=== PATIENT | male | born 1940 | race Caucasian/White ===

== ENCOUNTER → 2018-08-13 18:26 | Outpatient (CLI) | payer MEDICARE | END | disposition home or self-care (01) | LOC: D.LABREF 18:26 | PROVIDERS: ATTEND Orthopaedic Surgery | DX: M19.011 Primary osteoarthritis, right shoulder (principal); Z11.8 Encounter for screening for other infectious and parasitic diseases ==

== ENCOUNTER 2018-08-14 13:14 | Inpatient (IN) | payer MEDICARE, OTHER ==
[~2018-08-14] VITALS: Ht 188 cm; Wt 77.3 kg
[2018-09-04] MEDS ORDERED: AZELASTINE137 MCG/0. (14:47)
[2018-09-04] MEDS ORDERED: ZETIA10 MG PO (14:48)
[2018-09-04] MEDS ORDERED: HYDROCHLOROTHIA25 MG PO (14:48)
[2018-09-04] MEDS ORDERED: HUMALOG MIX 75/23 ML (14:48)
[2018-09-04] MEDS ORDERED: LANTUS SOL100 UNIT/1 (14:49)
[2018-09-04] MEDS ORDERED: OMEPRAZOLE20 M1 PO (14:49)
[2018-09-04] MEDS ORDERED: MICARDIS40 MG PO (14:49)
[2018-09-05 09:30] LABS: BASOPHILS 0.1 % (0-2); EOSINOPHILS 0.4 % (0-7); HEMATOCRIT 39.7 % (42.0-54.0); HEMOGLOBIN 13.5 g/dL (13.5-17.5); IMMATURE GRANULOCYTES 0.4 % (0-5); LYMPHOCYTES 29.7 % (15-50); MCH 31.7 pg (26.0-34.0); MCV 93.2 fL (80.0-100.0); MEAN PLATELET VOLUME 8.7 fL (7.4-10.4); MONOCYTES 7.5 % (2-11); NEUTROPHILS 61.9 % (40-80); PLATELET COUNT 188 10x3/uL (130-400); RBC 4.26 10x6/uL (4.20-6.10); RDW 13.6 % (11.5-14.5); WBC 6.8 10x3/uL (4.8-10.8)
[2018-09-05 09:46] LABS: INR 0.96 (0.85-1.17); PROTIME 12.3 SECONDS (11.6-15.0)
[2018-09-05 09:48] LABS: CALC OSMOLALITY 282 mosm/kg (275-300); CALCIUM 9.1 mg/dL (8.5-10.1); CARBON DIOXIDE 31.4 mmol/L (21.0-32.0); CHLORIDE - SERUM 101 mmol/L (98-107); GLUCOSE 215 mg/dL (74-106); POTASSIUM - SERUM 3.5 mmol/L (3.5-5.1); SODIUM 139 mmol/L (136-145); UREA NITROGEN 9 mg/dL (7-18); eGFR NON AFRICAN AMERICAN 76 mL/min (90-120)
[2018-09-05 14:28] LABS: APPEARANCE CLEAR (CLEAR); BILIRUBIN NEGATIVE (NEGATIVE); COLOR YELLOW (YELLOW); GLUCOSE NEGATIVE (NEGATIVE); KETONE NEGATIVE (NEGATIVE); NITRITE NEGATIVE (NEGATIVE); PROTEIN NEGATIVE (NEGATIVE); UROBILINOGEN NORMAL (NORMAL)
[2018-09-08 07:11] VITALS: BP 146/82; BMI 23.8
[2018-09-08] MEDS ORDERED: HUMALOG 30100 UNITS/ SC (07:38)
--- NOTE | 2018-09-08 13:45 | NUR ---
AUGER SUPERVISOR CALLED FOR A ROOM. RECIEVED A ROOM 2226 BUT DIRTY
--- NOTE | 2018-09-08 14:08 | NUR ---
PT RESTING COMFORTABLY AT THIS TIME, NO ACUTE DISTRESS NOTED, RESPIRATIONS EVEN AND UNLABORED. PT DENIES PAIN AT THIS TIME, BRISK CAP REFILL TO FINGERS OF RUE.
--- NOTE | 2018-09-08 14:49 | NUR ---
REPORT GIVEN TO DESIREE ON MED SURGERY. ROOM NOT READY
[2018-09-08 15:38] VITALS: Ht 188 cm; Wt 77.3 kg
[2018-09-08 17:33] VITALS: BP 138/78
[2018-09-08 20:00] VITALS: BP 148/72
--- NOTE | 2018-09-08 23:33 | NUR ---
1944[place] [facility] [place] patient states never coming back to this hospital.states has been trying to get help for 28minutes.stood at bedside.to void.drsg. dry and intact right shoulder with sling.fingers and nailbeds pink/blanches well.wiggles fingers good radial pulse fsbs 154 refused insulin according to sliding scale.will continue to monitor for any chges neurovascular status and follow current plan of care
--- NOTE | 2018-09-09 06:00 | NUR ---
I have reviewed this patient and I concur with the Shift Assessment completed by the Licensed Practical Nurse today this shift.
[2018-09-09 06:33] VITALS: BP 144/67
[2018-09-09 06:48] LABS: HEMATOCRIT 32.9 % (42.0-54.0); HEMOGLOBIN 11.1 g/dL (13.5-17.5); MCHC 33.7 g/dL (31.0-37.0); MCV 91.9 fL (80.0-100.0); RBC 3.58 10x6/uL (4.20-6.10); RDW 13.8 % (11.5-14.5); WBC 7.5 10x3/uL (4.8-10.8)
[2018-09-09 08:14] VITALS: BP 140/65
[2018-09-09] MEDS ORDERED: HYDROCODON-ACE1 EA10 PO (09:04)
--- NOTE | 2018-09-09 10:02 | NUR ---
PT RESTING IN BED. PT AM MEDS ADMINISTERED. PT DENIES NEEDS. WCTM.
[2018-09-09 11:46] VITALS: BP 124/61
--- NOTE | 2018-09-09 12:12 | NUR ---
PT DISCHARGE INSTRUCTIONS REV'D PT STATES UNDERSTANDING. PT DISCHARGING HOME WIHT FAMILY. PT ESCORTED OUT VIA WHEELCHAIR BY HOSPITAL STAFF.
--- NOTE | 2018-09-09 15:00 | OP ---
PATIENT NAME: EDGARD PLEITEZ JR MEDICAL RECORD: [id number] :38 LOCATION:D.MS Parry2226 ADMISSION DATE:09/08/18 SURGEON: JASPAL MORGAN MD DATE OF OPERATION: 09/08/2018 PREOPERATIVE DIAGNOSIS: Degenerative arthritis of the right shoulder. POSTOPERATIVE DIAGNOSIS: Degenerative arthritis of the right shoulder. PROCEDURE: Right total shoulder arthroplasty. SURGEON: Jaspal Morgan MD INSTRUMENT MECHANIC: ODALIS Doss INTRAOPERATIVE COMPLICATIONS: None. SUMMARY OF PATHOLOGIC FINDINGS: The patient's glenohumeral arthrosis consistent with preoperative diagnosis. IMPLANTS USED: Arthrex Univers Welch stem size 12, Arthrex Univers VaultLock glenoid size medium, Arthrex Univers II humeral head size 56/24. OPERATIVE SUMMARY IN DETAIL: After obtaining the appropriate preoperative orthopedic surgery consent as well as anesthetic consultation, evaluation and clearance, the patient was brought to the operating room and placed on the operating table in supine position. After general laryngeal mask airway was administered, the patient was placed in beach chair position. All pressure points were padded. He was held firmly to the operating table using vacuum pack suction system. Right upper extremity and shoulder were then prepped and draped in routine sterile fashion. The arm was held in the Trimano arm holding device. At this point, the appropriate timeout was taken to include patient identification, current allergies as well as appropriate antibiotics given. All were in agreement. A deltopectoral incision was taken down past the cephalic vein. The deltoid was then retracted over the humeral head using the brown retractor. Clavipectoral fascia was incised. Conjoined tendon was retracted gently medially. Subscapularis was taken in a peel down fashion. Biceps tendon was identified and saved for later tenodesis with closure. The shoulder was then dislocated into the incision and the appropriate head cut was made using the head cutting guide for the apex system. Several sequential reaming were done for a size 12. The size 12 trial was put into place with a proximal humeral cut cover. Attention was then turned to the glenoid. The patient had a mild Walch C glenoid, labrectomy was then followed by placing the pin and reaming to change to mild inversion without getting into subchondral bone. Final preparations were taken in preparation for the Arthrex vault lock glenoid. Arthrex vault lock glenoid was then cemented into place and held in place while the cement was allowed to harden. All excess cement was removed. At this point, attention was returned to the proximal humerus. Size 12-mm body was then put into place and the humerus with excellent fit and fill. Inferior and superior locking screw were then secured and the humeral head was then put in the appropriate position for posterior coverage. This was tamped into place with Gonzales taper. The shoulder was reduced and taken through range of motion and found to be stable in all planes. Closure was then achieved by Ghassan Wylie, which included subscapularis reapproximation to the lesser tuberosity in transosseous fashion using #2 Ethibond. This was incorporated to tenodesis. OPERATIVE REPORT [id number] EDGARD PLEITEZ Having completed this, deltopectoral incision was closed with using #1 Vicryl followed by skin willi. Sterile dressings were applied. The patient was awakened and taken to recovery in stable condition. All final instrument, needle and sponge counts were correct. TRANSINT:[id number] Voice Confirmation ID: [id number] DOCUMENT ID: [id number] JASPAL MORGAN MD at 1500 CC: [id number] DICTATION DATE: 09/09/18 1040 DISH UP PERSON: 09/09/18 1242 DIS IN 09/09/18 [id number] [place] [address]
== END 2018-09-09 12:13 | disposition home or self-care (01) | DRG 483 ==
LOC: D.SDCHOLD 09-08 06:59 → D.MS 09-08 15:18
PROVIDERS: ADMIT Orthopaedic Surgery; ATTEND Orthopaedic Surgery
PROC: 0RRJ0JZ Replacement of Right Shoulder Joint with Synthetic Substitute, Open Approach (ICD-10-PCS; principal; 2018-09-08 08:45)
DX: M19.011 Primary osteoarthritis, right shoulder (principal)

== ENCOUNTER 2018-09-10 03:48 | Emergency (ER) | payer MEDICARE, OTHER ==
[~2018-09-10] VITALS: Ht 188 cm; Wt 83.2 kg
[~2018-09-10 03:48] MED LIST: AZELASTINE137 MCG/0.; HUMALOG 30100 UNITS/ SC; HUMALOG MIX 75/23 ML; HYDROCHLOROTHIA25 MG PO; HYDROCODON-ACE1 EA10 PO; LANTUS SOL100 UNIT/1; MICARDIS40 MG PO; OMEPRAZOLE20 M1 PO; ZETIA10 MG PO
[2018-09-10 03:56] VITALS: Ht 188 cm; Wt 83.2 kg
[2018-09-10 06:48] VITALS: BP 141/79
== END 2018-09-10 06:50 | disposition home or self-care (01) ==
LOC: D.ER 03:48
DX: S51.012A Laceration without foreign body of left elbow, initial encounter (principal); W18.30XA Fall on same level, unspecified, initial encounter; Y93.89 Activity, other specified; Y92.019 Unspecified place in single-family (private) house as the place of occurrence of the external cause; M19.042 Primary osteoarthritis, left hand

== ENCOUNTER 2018-09-13 04:59 | Emergency (ER) | payer MEDICARE, OTHER ==
[~2018-09-13] VITALS: Ht 188 cm; Wt 83.2 kg
[2018-09-13 05:01] VITALS: Ht 188 cm; Wt 83.2 kg
[2018-09-13] MEDS ORDERED: BACLOFEN10 MG PO (05:34)
[2018-09-13 05:45] LABS: ALBUMIN 2.7 g/dL (3.4-5.0); ANION GAP 9.5 mmol/L (8-16); BILIRUBIN - TOTAL 0.63 mg/dL (0.2-1.3); CALCIUM 9.1 mg/dL (8.5-10.1); CARBON DIOXIDE 30.4 mmol/L (21.0-32.0); CREATININE - SERUM 1.2 mg/dL (0.6-1.3); POTASSIUM - SERUM 3.9 mmol/L (3.5-5.1); PROTEIN - SERUM 6.6 g/dL (6.4-8.2)
[2018-09-13 05:46] LABS: BASOPHILS 0.2 % (0-2); EOSINOPHILS 0.7 % (0-7); HEMATOCRIT 35.1 % (42.0-54.0); HEMOGLOBIN 11.9 g/dL (13.5-17.5); IMMATURE GRANULOCYTES 1.2 % (0-5); LYMPHOCYTES 23.7 % (15-50); MCH 31.3 pg (26.0-34.0); MCHC 33.9 g/dL (31.0-37.0); MCV 92.4 fL (80.0-100.0); MEAN PLATELET VOLUME 9.2 fL (7.4-10.4); NEUTROPHILS 64.2 % (40-80); PLATELET COUNT 190 10x3/uL (130-400); RDW 13.8 % (11.5-14.5); WBC 8.3 10x3/uL (4.8-10.8)
[2018-09-13 06:00] VITALS: BP 138/39
== END 2018-09-13 06:00 | disposition home or self-care (01) ==
LOC: D.ER 04:59
PROVIDERS: Emergency Medicine
DX: R06.6 Hiccough (principal)

== ENCOUNTER 2018-09-15 10:42 | Inpatient (IN) | payer MEDICARE, OTHER ==
[~2018-09-15] VITALS: Ht 188 cm; Wt 83.0 kg
--- NOTE | ~2018-09-15 | HEMODYNAMI ---
PATIENT:EDGARD PLEITEZ JR MEDICAL RECORD: [id number] : 38 [facility] ADMISSION DATE: 09/15/18 Generatedon:09/22/201817:50 Patient name: EDGARD PLEITEZ Patient #: [id number] SSN: D OB: 1940 Date of study: 09/22/2018 Page: Of Hemodynamic Procedure Report Patient Data Patient Demographics Procedure consent was obtained First Name: EDGARD Gender: Male Last Name: PRICILLA Suffix: [facility] Initial: LEIGH : 1940 Patient #: [id number] Age: 78 year(s) Race: Unknown Additional ID: [id number] Contact details Address: [address] [place] [address] [address] State: [place] City: [facility] Zip code: [address] Past Medical History Allergies Allergen Reaction Date Comments Reported Other allergy 09/22/2018 ZOCOR AND EURTHRMYCIN Admission Admission Data Admission Date: 09/15/2018 Admission Time: 10:42 Room #: D.1209 Procedure Procedure Types Cath Procedure Peripheral Cath Diagnostic Procedure Miscellaneous Procedure Description Procedure Date Procedure Date: 09/22/2018 Procedure Start Time: 17:34 Procedure Staff Name Function Isma Grover MD Performing Physician Randell Burroughs RT Monitor Richa Upton RN Nurse Procedure Data Cath Procedure Fluoroscopy Diagnostic fluoroscopy Total fluoroscopy Time: 0.6 time: 0.6 min min Diagnostic fluoroscopy Total fluoroscopy dose: 18 dose: 18 mGy mGy Hemodynamics Rest Pre Cath Intra NCS Post Cath Procedure Log Time Note 17:27:29 Randell Burroughs RT (R) (CV) sent for patient. Start room use. 17:27:40 Time tracking: Regular hours (M-F 7:00 - 5:00) 17:27:46 Patient received from Other to IR Alert and oriented. Tansferred to table in Supine position. 17:27:47 Correct patient and procedure confirmed by team. 17:27:49 Signed procedure consent form obtained from patient. 17:27:50 ECG and BP/O2 sat monitors applied to patient. 17:27:51 Full Disclosure recording started 17:27:53 Pre-procedure instructions explained to patient. 17:27:53 Pre-op teaching completed and patient verbalized understanding. 17:28:23 Patient allergic to Other allergyZOCOR AND EURTHRMYCIN 17:28:29 Alarms reviewed by R. N. 17:28:30 Sharps counted by scrub and verified by R.N. 17:28:37 Right Shoulder was prepped with chlora-prep and draped in sterile fashion. 17:33:14 Physician arrived 17:33:14 --------ALL STOP TIME OUT------ 17:33:15 Final Timeout: patient, procedure, and site verified with staff and physician. All members of the team are in agreement. 17:33:22 Right SHOULDER site verified by team. 17:33:42 Sedation plan: IV Moderate Sedation Medication:Lidocaine 17:33:54 Procedure started. 17:34:02 Local anesthetic to Right Shoulder with Lidocaine 1% by Isma Grover MD.INITIAL ACCESS ONLY 17:34:05 SAFE-T PLUS MYELOGRAM TRAY opened to sterile field. 17:35:33 SPINAL NEEDLE 20GX3.5 IN ([id number]) opened to sterile field. 17:47:32 Procedure ended.(Physican Out) 17:48:10 Fluoroscopy time 00.60 minutes. 17:48:15 Fluoroscopy dose: 18 mGy 17:48:15 Flurop Dose total: 18 17:49:04 BANDAIDE APPLIED SITE STABLE 17:49:16 Report given to Other. 17:49:19 Patient transfered to Other with Bed. Device Usage Item Name Manufacture Quantity Catalog Hospital Part Current Minimal Lot# / Number Charge Number Stock Stock Serial# Code SAFE-T CareFusion 1 [id number] 5 PLUS MYELOGRAM TRAY SPINAL B. Aly 1 [id number] [id number] 1 NEEDLE 20GX3.5 IN ([id number]) Signature Audit Repton Stage Time Signature Unsigned Intra-Procedure 09/22/2018 Randell 5:50:09 PM Shuffield RT (R) (CV) Signatures Monitor : Randell Signature : Shuffield RT Date : Time : [address] [place] [address]
--- NOTE | ~2018-09-15 | CN ---
PATIENT NAME:EDGARD PLEITEZ JR MEDICAL RECORD: [id number] : 36 LOCATION:D.MS Parry2235 ADMIT DATE: 09/15/18 ACCOUNT: [id number] CONSULTING PHYSICIAN: NORRIS MENDOZA MD REFERRING PHYSICIAN: MACI NEWBERRY DO DATE OF CONSULTATION: 09/30/2018 DIAGNOSES: 1. Tachycardia. 2. Status post right shoulder arthroplasty with revision. 3. Anemia. HISTORY OF PRESENT ILLNESS: This is a gentleman who had right shoulder arthroplasty, as well had a revision from standpoint of the right shoulder arthroplasty, who has had tachycardia. His heart rate is up to the 120 range. It is sinus tachycardia. This is not new since the surgery. He has been running with heart rates in the 130s. His baseline even prior to surgery was in the 90s. He is in considerable pain. He is mildly anemic with hemoglobin 11.6. His EKG is with no acute ST-T abnormalities. He is having no chest pain. No chest discomfort or cardiac symptomatology. PHYSICAL EXAMINATION: GENERAL APPEARANCE: Well-nourished, well-developed, appears stated age. Level of distress, comfortable. PSYCHIATRIC: Mental status, alert, normal affect. Orientation, oriented to time, place and person. EYES: Lids and conjunctiva, noninjected. No discharge, no pallor. ENT: Lips, teeth, gums, normal dentition. Oropharynx, no cyanosis, no pallor. NECK: Carotid arteries, bilateral normal upstroke, no bruits, no thrills. JUGULAR VEINS: No jugular venous pressure or distention. CERVICAL LYMPH NODES: Nontender, nonenlarged. THYROID: Not enlarged. Nontender. No nodules. LUNGS: Respiratory effort, unlabored. CHEST: Normal curvature. No thoracic deformity. No chest wall tenderness. Percussion, resonant. Auscultation, clear. No wheezes, no rales, no rhonchi. CARDIOVASCULAR: Precordial exam, nondisplaced. No heaves or pericardial thrills. Rate and rhythm, regular. Heart sounds, normal S1, normal S2. No S3, no gallop, no rub. Systolic murmur, not heard. Diastolic murmur, not heard. EXTREMITIES: No cyanosis, no edema. Peripheral pulses, full and equal in all extremities, except as noted. No bruits appreciated. ABDOMEN: Soft, nondistended. Normal aorta. No bruit. Nontender. No masses. Liver, nontender, no hepatomegaly. Spleen, nontender, no splenomegaly. MUSCULOSKELETAL: No joint tenderness. No joint swelling. No erythema. NEUROLOGICAL: Normal gait, normal strength, normal tone. SKIN: Warm and dry. OVERALL IMPRESSION: Tachycardia, most likely secondary to pain and anemia. At this time, we will get an echocardiogram. No other cardiac workup or testing is necessary. TRANSINT:[id number] Voice Confirmation ID: [id number] DOCUMENT ID: [id number] CONSULT REPORT [id number] EDGARD PLEITEZ JR, JEFFREY MD CC: [id number] DICTATION DATE: 09/30/18 1215 PUBLIC WORKS MANAGER: 09/30/18 1223 ADM IN [address] [address] [place] [address]
--- NOTE | ~2018-09-15 | EC ---
PATIENT:EDGARD PLEITEZ JR DATE OF SERVICE: 09/15/18 SEX: M MEDICAL RECORD: [id number] DATE OF : 36 LOCATION:D.MS [facility] AGE OF PATIENT: 78 ADMISSION DATE: 09/15/18 REFERRING PHYSICIAN: INTERPRETING PHYSICIAN: NORRIS ROBERTS MD ECHOCARDIOGRAM REPORT ECHO CHARGES 5 ECHO LIMITED Date: 09/30/18 CLINICAL DIAGNOSIS: TACHYCARDIA ECHOCARDIOGRAPHIC MEASUREMENTS (adult normal given) AC root (d.<3.7cm) 4.3 cm LV Septum d (<1.2 cm> 1.4 cm Valve Excursion 1.8 cm LV Septum (systole) 1.7 cm Left Atria (s.<4.0cm> 3.4 cm LVPW d(<1.2cm) 1.5 cm RV (d.<2.3cm) 3.9 cm LVPW (sytole) 1.6 cm LV diastole(<5.6CM) 4.7 cm MV E-F(>70mm/sec) cm LV systole 3.5 cm LVOT Diameter 2.5 cm MV exc.(>10mm) 1.3 cm Est.ejection fraction (50-75%) % DOPPLER: LVIT cm/sec A 110.0cm/sec E 75.0 cm/sec LA cm/sec RVSP 20 mmHg LVOT 98 cm/sec AOP1/2T m/s Asc. Ao 138 cm/sec RVOT 84 cm/sec RA cm/sec PA 125 cm/sec AV Gradient Peak 7.60 mmHg AV Mean 4.50 mmHg AV Area 3.0 cm MV Gradient Peak 4.97 mmHg MV Mean 2.11 mmHg MV Area cm COMMENTS: Brass Buffer: Andreia SCHRADER Airframe Design Engineer: 1 Dr. Roberts TAPE# PACS Pericardial Effusion N DATE OF SERVICE: 09/30/2018 FINDINGS: 1. Left ventricular chamber size is within normal limits. Left ventricular systolic function is normal. Overall ejection fraction is estimated at 55% to 60%. 2. Left atrium, right atrium, and right ventricular chamber sizes are within normal limit. 3. Valvular structures have normal structure and motion. 4. Doppler interrogation reveals mild mitral regurgitation. No other valvular ECHOCARDIOGRAM REPORT [id number] EDGARD PLEITEZ insufficiency or stenosis. 5. No evidence of pericardial effusion or left ventricular thrombus. TRANSINT:[id number] Voice Confirmation ID: [id number] DOCUMENT ID: [id number] NORRIS ROBERTS MD CC: [id number] DICTATION DATE: 09/30/18 1604 CABINET WORKER: 09/30/18 1628 ADM IN [address] [address] [place] [address]
[~2018-09-15 10:42] MED LIST changes: +BACLOFEN10 MG PO
--- NOTE | 2018-09-15 10:54 | NUR ---
RECEIVED VIA WHEELCHAIR TO ROOM. MAX 2 PERSON ASSIST TO BED. BOTTOM IS SLIGHTLY RED, BLANCHABLE. RIGHT SHOULDER 7 DAY DRESSING SEEN, NO DATE, FROM RECENT SHOULDER SURGERY PER DR MORGAN PATIENT STATES. RIGHT FLANK SEEN WITH LARGE BRUISE, LEFT POSTERIOR SHOULD AND LEFT FLANK WITH OLD BRUISING SEEN. LEFT KNEE SEEN WITH SCAB, LEFT TOP OF FOOT NEAR 3RD TOE SEEN WITH LARGE WATER FILLED BLISTER. 3+ EDEMA SEEN TO BILATERAL FEET. WILL ADMIT.
[2018-09-15 11:33] VITALS: BP 136/80; BMI 23.5
--- NOTE | 2018-09-15 12:20 | NUR ---
CALLED AND SPOKE TO DR NEWBERRY OFFICE FOR THEM TO FAX ME A COMPLETE HOME MED LIST PATIENT IS UNSURE OF WHAT HE TAKES.
--- NOTE | 2018-09-15 12:57 | NUR ---
URINE SENT TO LAB ORDERED. 22 G TO LEFT AC X 2 STICKS PER THIS NURSE. ALTHEA MAT ALARM IS ON AND SET.
--- NOTE | 2018-09-15 13:10 | NUR ---
STILL NOT MED LIST FROM DR NEWBERRY OFFICE. SPENT 09 MIN. ON HOLD WITH NO ANSWER.
[2018-09-15 13:22] LABS: APPEARANCE CLEAR (CLEAR); COLOR STRAW (YELLOW); NITRITE NEGATIVE (NEGATIVE); SPECIFIC GRAVITY 1.005 (1.005-1.020)
[2018-09-15 13:23] LABS: BILIRUBIN NEGATIVE (NEGATIVE); GLUCOSE 50 mg/dL (NEGATIVE); KETONE NEGATIVE (NEGATIVE); PROTEIN NEGATIVE (NEGATIVE); UROBILINOGEN NORMAL (NORMAL)
[2018-09-15 13:51] LABS: BASOPHILS 0.1 % (0-2); EOSINOPHILS 0.2 % (0-7); HEMATOCRIT 35.6 % (42.0-54.0); HEMOGLOBIN 12.2 g/dL (13.5-17.5); IMMATURE GRANULOCYTES 1.9 % (0-5); LYMPHOCYTES 17.3 % (15-50); MCH 31.5 pg (26.0-34.0); MCHC 34.3 g/dL (31.0-37.0); MEAN PLATELET VOLUME 8.9 fL (7.4-10.4); MONOCYTES 9.8 % (2-11); NEUTROPHILS 70.7 % (40-80); PLATELET COUNT 192 10x3/uL (130-400); RBC 3.87 10x6/uL (4.20-6.10); RDW 13.7 % (11.5-14.5); WBC 9.4 10x3/uL (4.8-10.8)
[2018-09-15 14:06] LABS: ALBUMIN 2.8 g/dL (3.4-5.0); ALKALINE PHOSPHATASE 69 U/L (46-116); ALT (SGPT) 52 U/L (10-68); BILIRUBIN - TOTAL 0.83 mg/dL (0.2-1.3); CALC OSMOLALITY 278 mosm/kg (275-300); CALCIUM 9.4 mg/dL (8.5-10.1); CARBON DIOXIDE 32.9 mmol/L (21.0-32.0); CHLORIDE - SERUM 98 mmol/L (98-107); POTASSIUM - SERUM 3.4 mmol/L (3.5-5.1); PROTEIN - SERUM 6.8 g/dL (6.4-8.2); SODIUM 137 mmol/L (136-145); UREA NITROGEN 16 mg/dL (7-18); eGFR NON AFRICAN AMERICAN 76 mL/min (90-120)
[2018-09-15 14:08] LABS: GLUCOSE 168 mg/dL (74-106)
--- NOTE | 2018-09-15 14:34 | NUR ---
DRESSING TO RIGHT SHOULDER REMOVED. INCISION IS 10.5 CM IN LENGHT WITH 18 INTACT NATALIE. COVERED WITH MEPILEX BORDER AG AND DATED. LEFT ELBOW AND LEFT WRIST BANDAIDS REMOVED. LEFT ELBOW WITH SKIN TEAR, MEAUSRES 3 CM AND LEFT WRIST WITH SKIN TEAR THAT ALSO MEASURES 3 CM. BOTH OF THESE ARE COVERED WITH WHITE BORDERED GUAZE AND DATED. TOLERATED WELL.
[2018-09-15 15:03] VITALS: BP 158/82
--- NOTE | 2018-09-15 16:24 | NUR ---
I HAVE SPENT 10:53 MIN ON HOLD TRYING TO GET TO TALK TO ENEDINA R/T NEEDING SLIDING SCALE DOSE FOR PATIENT. I HAVE CALLED AGAIN AND AM ON HOLD AGAIN NOW FOR 9:11 MIN. I SPOKE WITH CINDY DE LA O AND RECEIVED NEW ORDERS.
--- NOTE | 2018-09-15 16:33 | NUR ---
SPOKE WITH GALI IN PHARMACY FOR INSULIN TO BE BROUGHT UP.
--- NOTE | 2018-09-15 16:48 | NUR ---
CALL CATARINO IN PHARMACY FOR HUMULIN.
--- NOTE | 2018-09-15 17:30 | NUR ---
I CALLED GALI IN PHARMACY TO SEE WHEN HE MIGHT BRING THE INSULIN. HE REPLIES, "I HATE TO GIVE YOU A TIME, IT IS JUST ME".
--- NOTE | 2018-09-15 17:39 | NUR ---
DENIES NEEDS AT THIS TIME. PATIENT IS TALKING ON HIS CELL PHONE TO AND TELLS HER THAT "I SAW A BUNCH OF FLIES HERE IN THE ROOM". I APALOGIZED AND TOLD HIM THAT I SAW NO FLIES.
--- NOTE | 2018-09-15 18:36 | NUR ---
COMPLETE LINEN AND GOWN CHANGE R/T "SPILLING" HIS URNIAL.
[2018-09-15 19:56] VITALS: BP 155/72
[2018-09-15 21:33] LABS: INR 1.09 (0.85-1.17); PROTIME 13.6 SECONDS (11.6-15.0)
[2018-09-15 21:42] LABS: D-DIMER-QUANTITATIVE 16.72 ug/mLFEU (0.20-0.54)
[2018-09-15 23:37] VITALS: BP 183/72
--- NOTE | 2018-09-15 23:38 | NUR ---
KEN, BLOCKER POLISHING AT BEDSIDE ATTEMPTING 20G IV
--- NOTE | 2018-09-16 01:04 | NUR ---
PATIENT TAKEN FOR CTA
--- NOTE | 2018-09-16 01:22 | NUR ---
PATIENT RETURNED TO THE FLOOR
[2018-09-16 01:25] LABS: APPEARANCE CLEAR (CLEAR); BILIRUBIN NEGATIVE (NEGATIVE); COLOR YELLOW (YELLOW); GLUCOSE 50 mg/dL (NEGATIVE); KETONE SMALL mg/dL (NEGATIVE); NITRITE NEGATIVE (NEGATIVE); PROTEIN NEGATIVE (NEGATIVE); UROBILINOGEN NORMAL (NORMAL)
--- NOTE | 2018-09-16 02:37 | NUR ---
CALLED TREE THINNER IN REGARDS TO PULLING LOVENOX
[2018-09-16 03:59] VITALS: BP 135/76
[2018-09-16 07:48] LABS: ALBUMIN 2.5 g/dL (3.4-5.0); ALKALINE PHOSPHATASE 63 U/L (46-116); ALT (SGPT) 46 U/L (10-68); BILIRUBIN - TOTAL 0.67 mg/dL (0.2-1.3); CALC OSMOLALITY 282 mosm/kg (275-300); CALCIUM 8.9 mg/dL (8.5-10.1); CARBON DIOXIDE 30.3 mmol/L (21.0-32.0); CHLORIDE - SERUM 104 mmol/L (98-107); CREATININE - SERUM 0.9 mg/dL (0.6-1.3); GLUCOSE 89 mg/dL (74-106); POTASSIUM - SERUM 3.6 mmol/L (3.5-5.1); PRO BNP 200 pg/mL (0-450); PROTEIN - SERUM 5.7 g/dL (6.4-8.2); SODIUM 142 mmol/L (136-145); UREA NITROGEN 14 mg/dL (7-18); eGFR NON AFRICAN AMERICAN 86 mL/min (90-120)
[2018-09-16 07:49] LABS: BASOPHILS 0.1 % (0-2); EOSINOPHILS 0.5 % (0-7); HEMATOCRIT 36.3 % (42.0-54.0); HEMOGLOBIN 12.3 g/dL (13.5-17.5); IMMATURE GRANULOCYTES 1.5 % (0-5); LYMPHOCYTES 26.3 % (15-50); MCH 31.1 pg (26.0-34.0); MCHC 33.9 g/dL (31.0-37.0); MCV 91.9 fL (80.0-100.0); MEAN PLATELET VOLUME 9.1 fL (7.4-10.4); MONOCYTES 10.8 % (2-11); NEUTROPHILS 60.8 % (40-80); PLATELET COUNT 186 10x3/uL (130-400); RBC 3.95 10x6/uL (4.20-6.10); RDW 13.8 % (11.5-14.5)
--- NOTE | 2018-09-16 08:32 | MORECARE ---
CASE MANAGEMENT DISCHARGE SUMMARY PATIENT: EDGARD PLEITEZ JR UNIT: [id number] ADM DATE: 09/15/18 AGE: 78 : 38 SEX: M ROOM/BED: D.1209 AUTHOR: JANA MURILLO PHYSICIAN: REFERRING PHYSICIAN: MACI NEWBERRY DO DATE OF SERVICE: 09/16/18 Discharge Plan Patient Name: EDGARD PLEITEZ [facility] 1940 Planned Disposition: Home Anticipated Discharge Date: Discharge Date: Expected LOS: Initial Reviewer: [email or web address] Initial Review Date: 09/16/2018 Generated: 09/16/18 9:32 am Patient Name: EDGARD PLEITEZ Page [id number] at 0832 All edits/amendments must be made on the electronic document DICTATION DATE: 09/16/18 0832 BANK CLERK: MAGUI 09/16/18 0832 RPT#: [id number] DC DATE: STATUS: ADM IN [facility] [address] [place] [address] END OF REPORT
--- NOTE | 2018-09-16 10:13 | NUR ---
PT SITING UP IN BED. LIGHTS ON EYES OPEN. RESPRIATIONS EVEN AND UNLARBORED ON RA. R ARM RED, SWOLLEN ULTRASOUND SCHEDULED FOR TODAY, RULE OUT DVT. COMPLAINTS OF PAIN TO R ARM ONLY WHEN MOVED. DRESSING INTACT TO R SHOULDER, AND L FOREARM. NO OTHER COMPLAINTS VOICED. URINAL AT BEDSIDE. FALL PRECAUTIONS IN PLACE. BED IN LOWEST POSTION, CALL LIGHT AND BEDSIDE TABLE IN REACH. SIDERAILS UP X 2. ROOM FREE OF CLUTTER. WILL CONTINUE TO MONITOR
[2018-09-16 13:40] VITALS: BP 132/80
[2018-09-16 13:57] VITALS: BMI 23.5
--- NOTE | 2018-09-16 14:50 | NUR ---
I have reviewed this patient and I concur with the Shift Assessment completed by the Licensed Practical Nurse today this shift.
[2018-09-16 19:33] VITALS: BP 131/79
--- NOTE | 2018-09-16 19:54 | NUR ---
EVENING ROUNDS MADE. PT SITTING UP IN BED RESTING. DENIES PAIN AT THIS TIME. R ARM RED AND SWOLLEN. VITALS STABLE. DENIES FURTHER NEEDS AT THIS TIME. BED LOWERED AND LOCKED. CL IN REACH. WILL CTM.
--- NOTE | 2018-09-16 20:51 | NUR ---
VITALS STABLE. PT TOOK MEDS WITHOUT DIFFICULTY. DENIES PAIN AT THIS TIME. BED LOWERED AND LOCKED. CL IN REACH. FALL PRECAUTIONS IN PLACE. WILL CTM.
--- NOTE | 2018-09-17 01:46 | NUR ---
I have reviewed this patient and I concur with the Shift Assessment completed by the Licensed Practical Nurse today this shift.
[2018-09-17 04:43] VITALS: BP 126/77
--- NOTE | 2018-09-17 07:10 | NUR ---
REPORT FROM NIGHTSHIFT AND CARE ASSUMMED. HE IS ALERT ABLE TO VOICE NEEDS. RESP EVEN WITHOUT LABOR. RIGHT ARM FROM MIDWAY ON FORARM ALL THE WAY UP TO RIGHT BELOW THE SHOULDER IS SWOLLEN WITH PATCHES OF WARM RED AREAS. URINAL WITH YELLOW CLEAR URINE PRESENT AND EMPTIED. IV SITE IS CLEAR. SAFETY PRECAUTIONS IN PLACE AND CAREPLAN REVIEW DONE.
[2018-09-17 07:17] LABS: BASOPHILS 0.1 % (0-2); EOSINOPHILS 0.4 % (0-7); HEMATOCRIT 33.5 % (42.0-54.0); HEMOGLOBIN 11.3 g/dL (13.5-17.5); IMMATURE GRANULOCYTES 1.9 % (0-5); LYMPHOCYTES 28.9 % (15-50); MCH 31.4 pg (26.0-34.0); MCHC 33.7 g/dL (31.0-37.0); MCV 93.1 fL (80.0-100.0); MEAN PLATELET VOLUME 8.9 fL (7.4-10.4); MONOCYTES 7.6 % (2-11); NEUTROPHILS 61.1 % (40-80); PLATELET COUNT 205 10x3/uL (130-400); WBC 7.2 10x3/uL (4.8-10.8)
[2018-09-17 07:43] LABS: CALC OSMOLALITY 277 mosm/kg (275-300); CARBON DIOXIDE 32.2 mmol/L (21.0-32.0); CHLORIDE - SERUM 104 mmol/L (98-107); CREATININE - SERUM 0.9 mg/dL (0.6-1.3); GLUCOSE 98 mg/dL (74-106); PHOSPHOROUS 3.5 mg/dL (2.5-4.9); POTASSIUM - SERUM 3.4 mmol/L (3.5-5.1); SODIUM 139 mmol/L (136-145); UREA NITROGEN 13 mg/dL (7-18); eGFR NON AFRICAN AMERICAN 86 mL/min (90-120)
[2018-09-17 08:09] VITALS: BP 143/80
--- NOTE | 2018-09-17 09:20 | NUR ---
TOOK PO MEDS ONE AT A TIME BUT IS ABLE TO SWALLOW GOOD. HE REPEATS SELF AT TIMES AND IS FORGETFUL BUT NO CHANGE SINCE THIS AM. CL IN REACH CONTINUE CURRENT POC AND MONITOR. RESP EVEN WITHOUT LABOR
--- NOTE | 2018-09-17 10:32 | NUR ---
On left dorsal foot at #2 and #3 toes is an intact blister. Recommend applying skin protectant (cavilon prep) over area (gently) for additional protection which will allow the blister to dry up on its own.
--- NOTE | 2018-09-17 12:29 | NUR ---
TOP OF LEFT FOOT BLISTER RIGHT BELOW 2ND AND 3RD TOE INTACT WITH CLEAR LIQUID UNDERNEATH. APPLIED CAVILON TO BLISTER PER WOUND CARE ORDERS. EVERTON WELL AND BLISTER STAYED INTACT. PEDAL PULSE IS PALPABLE.
[2018-09-17 12:44] VITALS: BP 145/78
--- NOTE | 2018-09-17 14:30 | NUR ---
HE SPILLED HIS URINAL IN THE BED. LINEN CHANGE DONE AT THIS TIME.
[2018-09-17 15:31] VITALS: BP 129/85
--- NOTE | 2018-09-17 16:11 | NUR ---
IS HERE FOR VISIT. CL IN REACH. NO CHANGES NOTED.
--- NOTE | 2018-09-17 16:30 | NUR ---
DR NOLASCO CAME BY AND PATIENT TOLD HIM HE HAD NOT SEEN DR MORGAN. HE TOLD ME TO GET IN CONTACT WITH HIM TO LET HIM KNOW HIS PATIENT IS ADMITTED HERE, CONSULT HIM. I CALLED DR MORGAN OFFICE AND HE IS [place] THE [place] BUT GAVE ME DR WATTS PAGER NUMBER WHO IS ASSISTANT CASE MANAGER.
--- NOTE | 2018-09-17 16:45 | NUR ---
DR WATTS RETURNED PHONE CALL AND IS AWARE OF PATIENT AND CONSULT IS IN
--- NOTE | 2018-09-17 18:00 | NUR ---
ALERT DENIES ANY NEEDS AT THIS TIME. URINAL EMPTIED.
--- NOTE | 2018-09-17 19:11 | NUR ---
RECIEVED UP IN BED WITH EYES OPEN AND TV ON. ALERT AND ORIENTED X4. VERY TALKATIVE. DSG TO RIGHT SHOULDER AND LEFT ELBOW. SCABS TO LEFT ELBOW AREA X2. BRUISING TO RIGHT ARM AND SHOULDER. IV TO LEFT WRIST WITH NS AT 50CC/HR. INCONTINENT AT TIMES AND USES A URINAL AT TIMES. BLISTER TO TOP OF LEFT FOOT. DENIES ANY NEEDS AT THIS TIME.
--- NOTE | 2018-09-17 19:30 | MORECARE ---
CASE MANAGEMENT DISCHARGE SUMMARY PATIENT: EDGARD PLEITEZ JR UNIT: [id number] ADM DATE: 09/15/18 AGE: 78 : 38 SEX: M ROOM/BED: D.1209 AUTHOR: JANA MURILLO PHYSICIAN: REFERRING PHYSICIAN: MACI NEWBERRY DO DATE OF SERVICE: 09/17/18 Discharge Plan Patient Name: EDGARD PLEITEZ [facility] [facility] 1940 Planned Disposition: Home Anticipated Discharge Date: Discharge Date: Expected LOS: Initial Reviewer: [email or web address] Initial Review Date: 09/16/2018 Generated: 09/17/18 8:29 pm Comments DCP- Discharge Planning Updated by [id number]: Dania Edwards on 09/17/18 6:[address] CM TO VISIT FOR DISCHARGE PLANNING ASSESSMENT. PATIENT LIVES AT [facility]. Last DP export: 09/16/18 7:32 a Patient Name: EDGARD PLEITEZ Page [id number] at 1930 All edits/amendments must be made on the electronic document DICTATION DATE: 09/17/181928 CHRISTIAN EDUCATION DIRECTOR: MAGUI 09/17/181928 RPT#: [id number] DC DATE: STATUS: ADM IN [facility] [address] [place] [address] END OF REPORT
[2018-09-17 20:00] VITALS: BP 140/75
[2018-09-18 00:23] VITALS: BP 144/86
[2018-09-18 04:00] VITALS: BP 144/84
[2018-09-18 05:54] LABS: BASOPHILS 0.2 % (0-2); EOSINOPHILS 0.3 % (0-7); HEMOGLOBIN 12.5 g/dL (13.5-17.5); LYMPHOCYTES 31.2 % (15-50); MCH 31.5 pg (26.0-34.0); MCHC 33.8 g/dL (31.0-37.0); MCV 93.2 fL (80.0-100.0); MEAN PLATELET VOLUME 9.2 fL (7.4-10.4); MONOCYTES 8.4 % (2-11); NEUTROPHILS 57.9 % (40-80); PLATELET COUNT 231 10x3/uL (130-400); RBC 3.97 10x6/uL (4.20-6.10); WBC 8.7 10x3/uL (4.8-10.8)
[2018-09-18 06:18] LABS: INR 1.33 (0.85-1.17); PROTIME 15.9 SECONDS (11.6-15.0)
[2018-09-18 06:24] LABS: CALC OSMOLALITY 280 mosm/kg (275-300); CALCIUM 9.1 mg/dL (8.5-10.1); CARBON DIOXIDE 29.4 mmol/L (21.0-32.0); CHLORIDE - SERUM 104 mmol/L (98-107); CREATININE - SERUM 0.9 mg/dL (0.6-1.3); GLUCOSE 114 mg/dL (74-106); PHOSPHOROUS 3.1 mg/dL (2.5-4.9); SODIUM 140 mmol/L (136-145); UREA NITROGEN 15 mg/dL (7-18); eGFR NON AFRICAN AMERICAN 86 mL/min (90-120)
--- NOTE | 2018-09-18 07:05 | NUR ---
RECEIVED REPORT FROM NIGHTSNEFT AND CARE ASSUMMED. HE IS ALERT WITH CONFUSION AT TIMES. HE WILL REPEAT THE SAME STORIES OR FORGET THINGS AT TIMES. DENIES ANY CURRENT NEEDS. RESP EVEN WITHOUT LABOR. CL IN REACH. SAFETY PRECAUTIONS IN PLACE AND CAREPLAN REVIEW DONE.
[2018-09-18 07:27] VITALS: BP 147/87
--- NOTE | 2018-09-18 09:25 | NUR ---
ALERT WITH CONFUSION AT TIMES. RESP EVEN WITHOUT LABOR. USED INCENTIVE SPIROMETER. HE HAS NON-PRODUCTIVE COUGH. NO C/O PAIN OR DISCOMFORT. RIGHT ARM REMAINS SWOLLEN BUT WITH LESS EDEMA TODAY. SWOLLEN FROM MIDDLE OF UPPER ARM DOWN TO MIDDLE OF FOREARM.
--- NOTE | 2018-09-18 10:00 | NUR ---
AM CARE GIVEN AT THIS TIME WITH LINEN CHANGE. TOLERATED WELL. CONTINUE CURRENT POC AND MONITOR.
[2018-09-18 11:10] VITALS: BP 124/91
--- NOTE | 2018-09-18 11:26 | MORECARE ---
CASE MANAGEMENT DISCHARGE SUMMARY PATIENT: EDGARD PLEITEZ JR UNIT: [id number] ADM DATE: 09/15/18 AGE: 78 : 38 SEX: M ROOM/BED: D.1209 AUTHOR: JANA MURILLO PHYSICIAN: REFERRING PHYSICIAN: MACI NEWBERRY DO DATE OF SERVICE: 09/18/18 Discharge Plan Patient Name: EDGARD PLEITEZ [facility] [facility] 1940 Planned Disposition: Home Anticipated Discharge Date: Discharge Date: Expected LOS: Initial Reviewer: [email or web address] Initial Review Date: 09/16/2018 Generated: 09/18/18 12:25 pm Comments DCP- Discharge Planning Updated by [email or web address]: Dania Edwards on 09/18/18 10:[address] LATE ENTRY 0930 CM ATTEMPTED TO VISIT THE PATIENT THIS AM. PRIMARY GOING TO THE BEDSIDE TO GIVE MEDICATIONS AND BATH. 1045 CM TO VISIT. PATIENT WAS AWAKE DURING THE NIGHT CONTACTING HIS . SHE VISITED EARLY THIS AM. STATES SHE WILL RETURN TOMORROW. NORMALLY SHE WOULD STAY THRU LUNCH. PATIENT REQUIRED ASSIST OF TWO FOR BATHING. HE IS CONFUSED TO TIME. FREQUENTLY REPEATS HIMSELF. RECEIVED FIRST DOSE OF ELIQUIS TODAY. ORTHO TO SEE TODAY. DR MORGAN UNAVAILABLE. DR CARDENAS TO FOLLOW. PULMONARY FOLLOWING. WILL FOLLOWUP REGARDING OT AND PT. PATIENT IS PRESENTLY ON BEDREST. WILL CONTACT HIS THIS AFTERNOON. PREVIOUS GROUND CREWMAN INDICATED REHAB EVAL PENDING. NO PT OR OT NOTES YET THERAPIES ARE ON HOLD. CM FOLLOWING. PATIENT WITH HX OF FALLS AT HOME POST PROCEDURE DCP- Discharge Planning Updated by [id number]: Dania Edwards on 09/17/18 6:[address] CM TO VISIT FOR DISCHARGE PLANNING ASSESSMENT. PATIENT LIVES AT [facility]. Last DP export: 09/17/18 6:29 p Patient Name: EDGARD PLEITEZ Page [id number] at 1126 All edits/amendments must be made on the electronic document DICTATION DATE: 09/18/18 1125 ELECTRONIC FIELD SERVICE ENGINEER: MAGUI 09/18/18 1125 RPT#: [id number] DC DATE: STATUS: ADM IN [facility] [address] [place] [address] END OF REPORT
--- NOTE | 2018-09-18 12:15 | NUR ---
LUNCH SET UP FOR CONSUMPTION. HE IS ABLE TO FEED SELF. ALERT DENIES ANY CURRENT NEEDS. CL IN REACH
[2018-09-18 13:13] LABS: ACLA - IGG AB <9 GPL U/mL (0-14); ACLA - IGM AB <9 MPL U/mL (0-12)
--- NOTE | 2018-09-18 13:46 | NUR ---
IN BED WITH EYES CLOSED AT THIS TIME. RESP EVEN WITHOUT LABOR
--- NOTE | 2018-09-18 14:30 | NUR ---
HE WAS PUT ON BEDPAN AND HAD LARGE SOFT BM.
--- NOTE | 2018-09-18 15:00 | NUR ---
Nutrition Follow Up: Case Management in with pt at the time of RD visit. Interview deferred at this time. Chart reviewed. Diet: ADA with Chopped Meat; Glucerna TID PO Intake: 25% meal avg No BM since admit Meds and labs reviewed Rec continue current diet, supplement regimen. RD following.
[2018-09-18 15:23] VITALS: BP 119/74
--- NOTE | 2018-09-18 15:29 | NUR ---
DR NOLASCO CAME BY TO SEE PATIENT. HE SAID IT WOULD BE OK TO START BACK ON THERAPY TO MAKE HIM STRONGER DUE TO HE HAS NOT BEEN OUT OF BED SINCE ADMIT. DR NOLASCO STATED IT WOULD BE FINE TO GET HIM OUT OF BED AND GET THERAPY STARTED. I SPOKE WITH CLAUDIO CASTELLON WHO STATED IT WAS FINE TO CONSULT THERAPY.
--- NOTE | 2018-09-18 15:35 | MORECARE ---
CASE MANAGEMENT DISCHARGE SUMMARY PATIENT: EDGARD PLEITEZ JR UNIT: [id number] ADM DATE: 09/15/18 AGE: 78 : 38 SEX: M ROOM/BED: D.1209 AUTHOR: LIDIA,DOC PHYSICIAN: REFERRING PHYSICIAN: MACI NEWBERRY DO DATE OF SERVICE: 09/18/18 Discharge Plan Patient Name: EDGARD PLEITEZ Facility: [facility]:[place] : 1940 Planned Disposition: Home Anticipated Discharge Date: Discharge Date: Expected LOS: Initial Reviewer: [id number] Initial Review Date: 09/16/2018 Generated: 09/18/18 4:34 pm Comments DCP- Discharge Planning Updated by [id number]: Dania Edwards on 09/18/18 2:[address] LATE ENTRY 1417 TC TO THE PATIENT'S . NO ANSWER AND VOICE MAIL WAS FULL. 1430 CM VISITED WITH THE PATIENT. HE IS ALERT. LESS CONFUSED THAN EARLIER. PATIENT KNOWS HE IS HAVING DIFFICULTY WITH HIS MEMORY. DOES NOT UNDERSTAND WHY. HE REMEMBERS ONE HOSPITALIZATION. REMEMBERS SOMEWHAT ABOUT SURGERY. HE STATED HE WAS TO HAVE OUTPATIENT PHYSICAL THERAPY AT [facility]. HE DID NOT HAVE ANY HOME HEALTH SERVICES. HIS PLAN IS HOME W/ OUTPATIENT THERAPY. THE NURSE STATES HE WAS MAX ASSIST OF TWO TO GET FROM WHEELCHAIR TO BED ON HIS ARRIVAL. HE IS ASSIST OF TWO TO GET ONTO THE BEDPAN. HE IS MOVING ABOUT BETTER IN THE BED. SKILLED VS ACUTE REHAB WILL LIKELY BE MORE APPROPRIATE. DR SHETTY STATES FROM HIS PERSPECTIVE HE CAN START THERAPY. NURSE TO CALL FAMILY PRACTICE FOR ORDER. PATIENT HAS HAD A BOWEL MOVEMENT TODAY. DCP- Discharge Planning Updated by [id number]: Dania Edwards on 09/18/18 10:[address] LATE ENTRY 0930 CM ATTEMPTED TO VISIT THE PATIENT THIS AM. PRIMARY GOING TO THE BEDSIDE TO GIVE MEDICATIONS AND BATH. 1045 CM TO VISIT. PATIENT WAS AWAKE DURING THE NIGHT CONTACTING HIS . SHE VISITED EARLY THIS AM. STATES SHE WILL RETURN TOMORROW. NORMALLY SHE WOULD STAY THRU LUNCH. PATIENT REQUIRED ASSIST OF TWO FOR BATHING. HE IS CONFUSED TO TIME. FREQUENTLY REPEATS HIMSELF. RECEIVED FIRST DOSE OF ELIQUIS TODAY. ORTHO TO SEE TODAY. DR MORGAN UNAVAILABLE. DR CARDENAS TO FOLLOW. PULMONARY FOLLOWING. WILL FOLLOWUP REGARDING OT AND PT. PATIENT IS PRESENTLY ON BEDREST. WILL CONTACT HIS THIS AFTERNOON. PREVIOUS CPR AMBULANCE DRIVER INDICATED REHAB EVAL PENDING. NO PT OR OT NOTES YET THERAPIES ARE ON HOLD. CM FOLLOWING. PATIENT WITH HX OF FALLS AT HOME POST PROCEDURE DCP- Discharge Planning Updated by [id number]: Dania Edwards on 09/17/18 6:[address] CM TO VISIT FOR DISCHARGE PLANNING ASSESSMENT. PATIENT LIVES AT [facility]. Last DP export: 09/18/18 10:26 a Patient Name: EDGARD PLEITEZ Page [phone] at 1535 All edits/amendments must be made on the electronic document DICTATION DATE: 09/18/181533 FORKLIFT MATERIAL HANDLER: MAGUI 09/18/181533 RPT#: [id number] DC DATE: STATUS: ADM IN [facility] [address] [place] [address] END OF REPORT
[2018-09-18 15:52] VITALS: Ht 188 cm; Wt 83.0 kg
--- NOTE | 2018-09-18 17:15 | NUR ---
HERE FOR VISIT THEY ARE AWARE AND AGREE WITH THERAPY CONSULT. SUPPER SET UP FOR HIM TO SELF FEED AT THIS TIME. NO CHANGE IN CONDITION.
--- NOTE | 2018-09-18 18:36 | NUR ---
INCONTINET CARE GIVEN AT THIS TIME AND REPOSITIONED IN BED. RESP EVEN WITHOUT LABOR. CL IN REACH. USES URINAL BUT DOES SPILL IT SOMETIMES.
[2018-09-19] VITALS: BP 125/81
--- NOTE | 2018-09-19 01:55 | NUR ---
ASSESSED AT THE BEGINNING OF THE SHIFT. PT IS ALERT AND ORIENTED, WITH SOME FORGETFULNESS. HE IS ABLE TO VERBALIZE NEEDS. THERE IS A URINAL AT THE BEDSIDE AND HE HAS BEEN USING IT.HE TOOK HIS BEDTIME MEDS WELL AND WAS GIVEN INSULIN ORDERED WITH A BLOOD SUGAR OF 164. HE ALSO RECEIVED NORCO FOR PAIN WHICH HE WAS COMPLAINING ABOUT IN HIS SURGICAL SHOULDER. THIS SEEMED TO HELP AND HE WENT TO SLEEP. AT THIS TIME HE IS ASLEEP WITH EASY RESPIRATIONS AND NO DISTRESS NOTED.
[2018-09-19 04:08] VITALS: BP 149/77
[2018-09-19 06:16] LABS: BASOPHILS 0.2 % (0-2); EOSINOPHILS 0.4 % (0-7); HEMOGLOBIN 11.9 g/dL (13.5-17.5); IMMATURE GRANULOCYTES 2.1 % (0-5); LYMPHOCYTES 28.9 % (15-50); MCH 31.6 pg (26.0-34.0); MCV 92.8 fL (80.0-100.0); MEAN PLATELET VOLUME 9.3 fL (7.4-10.4); MONOCYTES 7.6 % (2-11); NEUTROPHILS 60.8 % (40-80); PLATELET COUNT 232 10x3/uL (130-400); RBC 3.77 10x6/uL (4.20-6.10); RDW 14.1 % (11.5-14.5); WBC 9.2 10x3/uL (4.8-10.8)
[2018-09-19 06:33] LABS: CALC OSMOLALITY 280 mosm/kg (275-300); CALCIUM 8.9 mg/dL (8.5-10.1); CARBON DIOXIDE 29.3 mmol/L (21.0-32.0); CHLORIDE - SERUM 104 mmol/L (98-107); GLUCOSE 140 mg/dL (74-106); PHOSPHOROUS 3.3 mg/dL (2.5-4.9); POTASSIUM - SERUM 4.2 mmol/L (3.5-5.1); SODIUM 139 mmol/L (136-145); UREA NITROGEN 14 mg/dL (7-18); eGFR NON AFRICAN AMERICAN 76 mL/min (90-120)
[2018-09-19 07:52] VITALS: BP 145/87
--- NOTE | 2018-09-19 08:12 | NUR ---
PT AM MEDS ADMINISTERED. PT ASSESSMENT COMPLETED. PT DENIES NEEDS. WCTM.
[2018-09-19 10:14] LABS: PROTEIN S - FREE 137 % (57-157); PROTEIN S - FUNCTIONAL 89 % (63-140); PROTEIN S - TOTAL 90 % (60-150)
[2018-09-19 11:14] LABS: PROTEIN S - FREE 123 % (57-157); PROTEIN S - TOTAL 91 % (60-150)
[2018-09-19 11:57] VITALS: BP 120/72
--- NOTE | 2018-09-19 14:06 | NUR ---
Rehab Note- Acute Inpatient Rehab prescreen order received. The patient continues to have an acute work up per Ortho with a CT order of his shoulder after viewing the Xray report. Will continue to follow the patient at this time. Thank you for this referral! Justine Anguiano RN Clinical Liaison, [facility] Rehab
--- NOTE | 2018-09-19 14:08 | NUR ---
REMOVED 18 NATALIE FROM PT RT SHOULDER PER ORDER. INCISION IS WELL APPROXIMATED. NO STERI STRIPS APPLIED. WCTM.
[2018-09-19 19:34] VITALS: BP 171/87
[2018-09-19 22:26] VITALS: BP 137/82
--- NOTE | 2018-09-20 00:23 | NUR ---
ASSESSED AT THE BEGINNING OF THE SHIFT. PT IS ALERT AND ORIENTED BUT VERY FORGETFUL AND WILL TELL YOU THE SAME THINGS ABOUT THE NEWS OVER AND OVER. HE IS USING THE URINAL AND WE HAVE KEPT IT EMPTY SO HE WILL NOT SPILL IT. THERE WAS NO PROBLEM WITH TAKING HIS HS MEDS AND HE REQUESTED AND RECEIVED PAIN MEDS AT THAT TIME. AT THIS TIME HE IS ASLEEP BUT IS EASILY AWAKENED WHEN WE ENTER THE ROOM. WILL CONTINUE TO MONITOR.
[2018-09-20 04:13] VITALS: BP 132/75
[2018-09-20 06:55] LABS: BASOPHILS 0.1 % (0-2); EOSINOPHILS 0.6 % (0-7); HEMATOCRIT 32.9 % (42.0-54.0); HEMOGLOBIN 10.8 g/dL (13.5-17.5); IMMATURE GRANULOCYTES 1.9 % (0-5); LYMPHOCYTES 29.3 % (15-50); MCH 30.8 pg (26.0-34.0); MCHC 32.8 g/dL (31.0-37.0); MCV 93.7 fL (80.0-100.0); MONOCYTES 6.8 % (2-11); NEUTROPHILS 61.3 % (40-80); PLATELET COUNT 238 10x3/uL (130-400); RBC 3.51 10x6/uL (4.20-6.10); RDW 14.1 % (11.5-14.5); WBC 7.9 10x3/uL (4.8-10.8)
[2018-09-20 07:08] LABS: CALC OSMOLALITY 284 mosm/kg (275-300); CALCIUM 7.9 mg/dL (8.5-10.1); CHLORIDE - SERUM 107 mmol/L (98-107); CREATININE - SERUM 0.8 mg/dL (0.6-1.3); GLUCOSE 152 mg/dL (74-106); MAGNESIUM - SERUM 1.7 mg/dL (1.8-2.4); PHOSPHOROUS 2.5 mg/dL (2.5-4.9); POTASSIUM - SERUM 3.7 mmol/L (3.5-5.1); SODIUM 141 mmol/L (136-145); UREA NITROGEN 14 mg/dL (7-18); eGFR NON AFRICAN AMERICAN > 90 mL/min (90-120)
[2018-09-20 08:03] VITALS: BP 116/75
[2018-09-20 08:13] LABS: HEXAGONAL PHASE PHOS 0 sec (0-11); LUPUS - INTERPRETATION Comment: (()); LUPUS - THROMBIN TIME 23.7 sec (0.0-23.0); LUPUS - dRVVT 43.7 sec (0.0-47.0); PTT-LA 52.4 sec (0.0-51.9); PTT-LA MIX 50.5 sec (0.0-48.9)
--- NOTE | 2018-09-20 08:27 | NUR ---
ROUNDING DONE WITH PATIENT ON ALTHEA MAT ALARM. SLIGHT CONFUSION BUT DOES NOT TRY TO CLIMB OUT OF BED. ON ROOM AIR. LEFT WRIST SEEN WITH NS INFUSING AT 50 CC/HR. RIGHT SHOULDER WITH DRESSING C/D/I, DRESSING ALSO SEEN TO LEFT WRIST AND LEFT ELBOW. SLIGHT ABRAION SEEN TO LEFT KNEE. ON EP, LABS WNL EXCEPT MAG OF 1.7, WILL COVER. BLISTER SEEN INTACT TO LEFT TOP OF FOOT NEAR TOES. RIGHT FLANK SEEN WITH BRUISE, LEFT POSTERIOR SHOULDER AND LEFT FLANK WITH OLD BRUISING.
[2018-09-20 11:44] VITALS: BP 125/77
[2018-09-20 15:43] VITALS: BP 117/74
--- NOTE | 2018-09-20 17:55 | NUR ---
TO BRING IN AN ELECTRIC RAZOR FOR PATIENT. ALTHEA MAT ALARM ON AND IN USE.
--- NOTE | 2018-09-20 19:25 | NUR ---
PATIENT RESTING IN BED WITH NO S/S OF DISTRESS AND DENIES NEEDS AT THIS TIME. BED IN LOWEST POSITION AND CL WITHIN REACH. ENCOURAGED THE PATIENT TO CALL IF HE HAS NEEDS. WILL CONTINUE TO MONITOR.
[2018-09-21] VITALS: BP 121/68
[2018-09-21 04:50] LABS: CALC OSMOLALITY 280 mosm/kg (275-300); CALCIUM 8.9 mg/dL (8.5-10.1); CHLORIDE - SERUM 103 mmol/L (98-107); CREATININE - SERUM 0.9 mg/dL (0.6-1.3); GLUCOSE 201 mg/dL (74-106); MAGNESIUM - SERUM 2.1 mg/dL (1.8-2.4); POTASSIUM - SERUM 3.8 mmol/L (3.5-5.1); SODIUM 137 mmol/L (136-145); UREA NITROGEN 16 mg/dL (7-18); eGFR NON AFRICAN AMERICAN 86 mL/min (90-120)
[2018-09-21 07:28] VITALS: BP 134/77
--- NOTE | 2018-09-21 08:48 | NUR ---
PATIENT EATING BREAKFAST AT THIS TIME. ASSISSTED IN FILLING OUT MENU. CALL LIGHT IS IN REACH BED IS IN LOW POSTITION. PATIENT DENIES ANY NEEDS ATT HIS TIME.
[2018-09-21 11:12] VITALS: BP 125/80
--- NOTE | 2018-09-21 12:06 | NUR ---
ASSISTED PATIENT TO RESTROOM TO VOID.
[2018-09-21 15:37] VITALS: BP 123/79
--- NOTE | 2018-09-21 19:05 | NUR ---
RESPONDED TO PATIENT CALL LIGHT. EMPTIED 200 ML OF URINE. PATIENT DENIES OTHER NEEDS AT THIS TIME. BED IN LOWEST POSITION, CALL LIGHT WITHIN REACH, AND ALTHEA ALARM ON. ENCOURAGED THE PATIENT TO CALL IF HE HAS NEEDS. WILL CONTINUE TO MONITOR.
[2018-09-21 20:19] VITALS: BP 135/83
--- NOTE | 2018-09-21 21:24 | NUR ---
CONTACTED SKIDDER OPERATOR TO NOTIFY HER THAT I NEED A LANTUS PEN FOR PATIENT. FAXED ORDER TO [id number] PER HER REQUEST
[2018-09-22] VITALS: BP 135/80
[2018-09-22 04:47] VITALS: BP 132/77
--- NOTE | 2018-09-22 07:01 | NUR ---
ROUNDING DONE WITH PATIENT WATCHING TV, DENIES NEEDS AT THIS TIME. LEFT WRIST PIV SEEN WITH NS INFUSING AT 50 CC/HR. ON ROOM AIR. ALTHEA MAT ALARM IS ON AND IN USE. ON EP, NO LABS BACK AT THIS TIME. RIGHT SHOULDER INCISION SEEN INTACT, OPEN TO AIR.
[2018-09-22 07:42] VITALS: BP 135/76
[2018-09-22 09:07] LABS: ALBUMIN 2.7 g/dL (3.4-5.0); ALKALINE PHOSPHATASE 85 U/L (46-116); ALT (SGPT) 52 U/L (10-68); BILIRUBIN - TOTAL 0.54 mg/dL (0.2-1.3); CALC OSMOLALITY 279 mosm/kg (275-300); CALCIUM 9.8 mg/dL (8.5-10.1); CARBON DIOXIDE 28.4 mmol/L (21.0-32.0); CHLORIDE - SERUM 103 mmol/L (98-107); CREATININE - SERUM 0.9 mg/dL (0.6-1.3); GLUCOSE 162 mg/dL (74-106); POTASSIUM - SERUM 3.9 mmol/L (3.5-5.1); PROTEIN - SERUM 6.4 g/dL (6.4-8.2); SODIUM 137 mmol/L (136-145); UREA NITROGEN 18 mg/dL (7-18); eGFR NON AFRICAN AMERICAN 86 mL/min (90-120)
--- NOTE | 2018-09-22 09:12 | NUR ---
EP WITH RESULTS OF POTASSIUM OF 3.9
--- NOTE | 2018-09-22 09:54 | MORECARE ---
CASE MANAGEMENT DISCHARGE SUMMARY PATIENT: EDGARD PLEITEZ JR UNIT: [id number] ADM DATE: 09/15/18 AGE: 78 : 38 SEX: M ROOM/BED: D.1209 AUTHOR: LIDIA,DOC PHYSICIAN: REFERRING PHYSICIAN: AMCI NEWBERRY DO DATE OF SERVICE: 09/22/18 Discharge Plan Patient Name: EDGARD PLEITEZ Facility: [facility]:[place] : 1940 Planned Disposition: Home Anticipated Discharge Date: Discharge Date: Expected LOS: Initial Reviewer: [email or web address] Initial Review Date: 09/16/2018 Generated: 09/22/18 10:53 am Comments DCP- Discharge Planning Updated by [id number]: Harriet Rhodes on 09/22/18 8:[address] Patient Name: EDGARD PLEITEZ Admission Status: Elective Accout number: [id number] Admission Date: 09-15-2018 : 1940 Admission Diagnosis:PERIPHERAL VASCULAR DISEASE, UNSPECIFIED Attending: MACI NEWBERRY Current LOS: 7 Anticipated DC Date: Planned Disposition: Home Primary Insurance: MEDICARE A & B Discharge Planning Comments: CM met with patient to complete initial dc planning assessment. CM educated patient on the CM role and verbal consent given by patient to complete assessment. CM verified patient's address, phone number, and emergency contact phone numbers. Patient lives at home with family and reports he is independent in his care. At discharge patient plans to return home and feels this is a safe discharge. CM discussed availability of home health, rehab services, and medical equipment. Patient denied known discharge needs at this time.. CM will continue to follow and will assist as needed with dc plans/needs. Hydraulic Punch Press Operator: Harriet Rhodes DCP- Discharge Planning Updated by [id number]: Dania Edwards on 09/18/18 2:[address] LATE ENTRY 1417 TC TO THE PATIENT'S . NO ANSWER AND VOICE MAIL WAS FULL. 1430 CM VISITED WITH THE PATIENT. HE IS ALERT. LESS CONFUSED THAN EARLIER. PATIENT KNOWS HE IS HAVING DIFFICULTY WITH HIS MEMORY. DOES NOT UNDERSTAND WHY. HE REMEMBERS ONE HOSPITALIZATION. REMEMBERS SOMEWHAT ABOUT SURGERY. HE STATED HE WAS TO HAVE OUTPATIENT PHYSICAL THERAPY AT [facility]. HE DID NOT HAVE ANY HOME HEALTH SERVICES. HIS PLAN IS HOME W/ OUTPATIENT THERAPY. THE NURSE STATES HE WAS MAX ASSIST OF TWO TO GET FROM WHEELCHAIR TO BED ON HIS ARRIVAL. HE IS ASSIST OF TWO TO GET ONTO THE BEDPAN. HE IS MOVING ABOUT BETTER IN THE BED. SKILLED VS ACUTE REHAB WILL LIKELY BE MORE APPROPRIATE. DR SHETTY STATES FROM HIS PERSPECTIVE HE CAN START THERAPY. NURSE TO CALL FAMILY PRACTICE FOR ORDER. PATIENT HAS HAD A BOWEL MOVEMENT TODAY. DCP- Discharge Planning Updated by [email or web address]: Dania Edwards on 09/18/18 10:[address] LATE ENTRY 0930 CM ATTEMPTED TO VISIT THE PATIENT THIS AM. PRIMARY GOING TO THE BEDSIDE TO GIVE MEDICATIONS AND BATH. 1045 CM TO VISIT. PATIENT WAS AWAKE DURING THE NIGHT CONTACTING HIS . SHE VISITED EARLY THIS AM. STATES SHE WILL RETURN TOMORROW. NORMALLY SHE WOULD STAY THRU LUNCH. PATIENT REQUIRED ASSIST OF TWO FOR BATHING. HE IS CONFUSED TO TIME. FREQUENTLY REPEATS HIMSELF. RECEIVED FIRST DOSE OF ELIQUIS TODAY. ORTHO TO SEE TODAY. DR MORGAN UNAVAILABLE. DR CARDENAS TO FOLLOW. PULMONARY FOLLOWING. WILL FOLLOWUP REGARDING OT AND PT. PATIENT IS PRESENTLY ON BEDREST. WILL CONTACT HIS THIS AFTERNOON. PREVIOUS JET OPERATOR INDICATED REHAB EVAL PENDING. NO PT OR OT NOTES YET THERAPIES ARE ON HOLD. CM FOLLOWING. PATIENT WITH HX OF FALLS AT HOME POST PROCEDURE DCP- Discharge Planning Updated by [id number]: Dania Edwards on 09/17/18 6:[address] CM TO VISIT FOR DISCHARGE PLANNING ASSESSMENT. PATIENT LIVES AT [facility]. Coverage Notice Reviewer: [id number] - Harriet Rhodes Notice Issued Date-Time: 09/22/2018 9:10 Notice Type: IM Discharge Notice Notice Delivered To: Patient Relationship to Patient: Self Shipping And Receiving Material Handler Name: Delivery Method: HAND - Hand Delivered Myla Days: Prior Verbal Notification: Recipient Understood Notice: Yes Recipient Signature: Yes Med Rec Note Co-signed by Attending: Coverage Notice Comment: Last DP export: 09/18/18 2:34 p Patient Name: EDGARD PLEITEZ Page [id number] at 0954 All edits/amendments must be made on the electronic document DICTATION DATE: 09/22/18952 EQUIPMENT DRIVER: MAGUI 09/22/18952 RPT#: [id number] DC DATE: STATUS: ADM IN [facility] [address] [place] [address] END OF REPORT
[2018-09-22 10:10] LABS: ANA REFLEX - DIRECT Negative (Negative)
[2018-09-22 11:39] VITALS: BP 101/71
--- NOTE | 2018-09-22 12:11 | NUR ---
PATIENT IN CHAIR FROM THERAPY, TUYET WITH THERAPY ASKED PATIENT TO SIT UP THOUGH LUNCH. AT 1200, I PAGED TUYET TO COME HELP PLACE PATIENT BACK TO BED. NO ANSWER YET.
--- NOTE | 2018-09-22 13:15 | NUR ---
Rehab Note- Continued to follow the patient at this time. The patient continues with PT, ambulating 3ft at this time per PT note. Thank you for this referral! Justine Anguiano RN Clinical Liaison, [facility] Rehab
--- NOTE | 2018-09-22 13:28 | NUR ---
TUYET WITH THERAPY TO PLACE PATIENT BACK TO BED. ALTHEA MAT ALARM BACK ON AND IN USE
[2018-09-22 14:09] LABS: FACTOR II DNA ANALYSIS Negative (())
--- NOTE | 2018-09-22 14:21 | NUR ---
3036-CALLED OVER TO DR KIM'S OFFICE TO LET HIM KNOW THAT PATIENT IS FULL OF BLOOD CLOTS AND I AM CONCEREND THAT HE DOES NOT NEED TO BE OFF THE ELIQUIS. AWAITING CALL BACK.
[2018-09-22 15:05] LABS: ERYTHROCYTE SEDIMENTATION RATE 33 mm/hr (0-20)
[2018-09-22 15:07] LABS: BASOPHILS 0.1 % (0-2); EOSINOPHILS 0.1 % (0-7); HEMATOCRIT 34.9 % (42.0-54.0); HEMOGLOBIN 11.8 g/dL (13.5-17.5); IMMATURE GRANULOCYTES 1.5 % (0-5); LYMPHOCYTES 15.6 % (15-50); MCH 31.1 pg (26.0-34.0); MCHC 33.8 g/dL (31.0-37.0); MCV 92.1 fL (80.0-100.0); MEAN PLATELET VOLUME 9.3 fL (7.4-10.4); MONOCYTES 5.6 % (2-11); NEUTROPHILS 77.1 % (40-80); PLATELET COUNT 348 10x3/uL (130-400); RBC 3.79 10x6/uL (4.20-6.10); RDW 13.9 % (11.5-14.5); WBC 11.5 10x3/uL (4.8-10.8)
--- NOTE | 2018-09-22 15:15 | NUR ---
DR KIM TO CALL BACK AND TELL ME THAT HE IS GOING TO CALL DR NEWBERRY TO SEE IF PATIENT CAN COME OFF ELIQUIS.
--- NOTE | 2018-09-22 15:19 | NUR ---
Rehab Note- Visited with the patient- he is very interested in [facility] Acute Inpatient Rehab prior to being discharged home. States that Dr. Chavez has been seeing him this acute hospital stay due to Dr. Hernandez having been on vacation after his right shoulder surgery. States that he is possibly wanting to change surgeons due to complications with his right shoulder. Will continue to follow, patient states that there is a possiblity of him having surgery again on his shoulder Saturday. Thank you for this referral! Justine Anguiano RN Clinical Liaison, [facility] REhab
[2018-09-22 16:01] VITALS: BP 140/87
--- NOTE | 2018-09-22 17:10 | NUR ---
PER RADIOLOGY I WAS CALLED AND TOLD THEY WANTED TO ASPIRATE HIS SHOULDER. I ASKED THAT THEY CALL DR IVERSON OR DR KIM I THOUGHT I HEARD THEM WANTING TO WAIT. THIS WAS RELAYED TO BOTH [facility] AND [facility] IN RADIOLOGY.
--- NOTE | 2018-09-22 17:13 | NUR ---
PER [facility] IN IR THAT DR FIELDS SPOKE WITH DR IVERSON AND THEY WANT TO PROCEED ON RIGHT SHOULDER ASPIRATION.
--- NOTE | 2018-09-22 17:35 | NUR ---
TO RADIOLOGY VIA BED.
--- NOTE | 2018-09-22 18:01 | NUR ---
RETURNS FROM RADIOLOGY.
--- NOTE | 2018-09-22 18:01 | NUR ---
G[facility]FIELD WALTON STATES THAT FLUID WAS SENT TO LAB.
--- NOTE | 2018-09-22 19:49 | NUR ---
PT IN BED. DENIES NEEDS AT THIS TIME.
[2018-09-22 20:00] VITALS: BP 133/75
[2018-09-23] VITALS: BP 137/74
[2018-09-23 04:00] VITALS: BP 124/78
[2018-09-23 05:11] LABS: PROTEIN C - ANTIGEN 115 % (60-150); PROTEIN C - FUNCTIONAL 124 % (73-180)
[2018-09-23 07:25] LABS: BASOPHILS 0.2 % (0-2); EOSINOPHILS 0.4 % (0-7); HEMATOCRIT 33.6 % (42.0-54.0); HEMOGLOBIN 11.4 g/dL (13.5-17.5); IMMATURE GRANULOCYTES 1.2 % (0-5); LYMPHOCYTES 23.7 % (15-50); MCH 31.3 pg (26.0-34.0); MCHC 33.9 g/dL (31.0-37.0); MCV 92.3 fL (80.0-100.0); MONOCYTES 8.6 % (2-11); NEUTROPHILS 65.9 % (40-80); PLATELET COUNT 329 10x3/uL (130-400); RBC 3.64 10x6/uL (4.20-6.10)
[2018-09-23 07:26] LABS: WBC 8.4 10x3/uL (4.8-10.8)
[2018-09-23 07:33] LABS: CALC OSMOLALITY 278 mosm/kg (275-300); CARBON DIOXIDE 29.8 mmol/L (21.0-32.0); CHLORIDE - SERUM 102 mmol/L (98-107); CREATININE - SERUM 0.9 mg/dL (0.6-1.3); GLUCOSE 151 mg/dL (74-106); POTASSIUM - SERUM 3.7 mmol/L (3.5-5.1); SODIUM 137 mmol/L (136-145); UREA NITROGEN 18 mg/dL (7-18); eGFR NON AFRICAN AMERICAN 86 mL/min (90-120)
[2018-09-23 08:10] VITALS: BP 148/68
--- NOTE | 2018-09-23 08:25 | NUR ---
PT PULLED UP IN THE BED. NO DISTRESS NOTED. RR EVEN AND UNLABORED. URINAL EMPTIED WITH 200ML CLEAR YELLOW URINE. ASSESSMENT DONE. WILL CONTINUE TO MONITOR.
--- NOTE | 2018-09-23 09:50 | MORECARE ---
CASE MANAGEMENT DISCHARGE SUMMARY PATIENT: EDGARD PLEITEZ JR UNIT: [id number] ADM DATE: 09/15/18 AGE: 78 : 38 SEX: M ROOM/BED: D.1209 AUTHOR: LIDIA,DOC PHYSICIAN: REFERRING PHYSICIAN: MACI NEWBERRY DO DATE OF SERVICE: 09/23/18 Discharge Plan Patient Name: EDGARD PLEITEZ Facility: [facility]:[place] : 1940 Planned Disposition: Home Anticipated Discharge Date: Discharge Date: Expected LOS: Initial Reviewer: [id number] Initial Review Date: 09/16/2018 Generated: 09/23/18 10:49 am Comments DCP- Discharge Planning Updated by [id number]: Harriet Rhodes on 09/22/18 8:[address] Patient Name: EDGARD PLEITEZ Admission Status: Elective Accout number: [id number] Admission Date: 09-15-2018 : 1940 Admission Diagnosis:PERIPHERAL VASCULAR DISEASE, UNSPECIFIED Attending: MACI NEWBERRY Current LOS: 7 Anticipated DC Date: Planned Disposition: Home Primary Insurance: MEDICARE A & B Discharge Planning Comments: CM met with patient to complete initial dc planning assessment. CM educated patient on the CM role and verbal consent given by patient to complete assessment. CM verified patient's address, phone number, and emergency contact phone numbers. Patient lives at home with family and reports he is independent in his care. At discharge patient plans to return home and feels this is a safe discharge. CM discussed availability of home health, rehab services, and medical equipment. Patient denied known discharge needs at this time.. CM will continue to follow and will assist as needed with dc plans/needs. Mail Examiner: Harriet Rhodes DCP- Discharge Planning Updated by [id number]: Dania Edwards on 09/18/18 2:[address] LATE ENTRY 1417 TC TO THE PATIENT'S . NO ANSWER AND VOICE MAIL WAS FULL. 1430 CM VISITED WITH THE PATIENT. HE IS ALERT. LESS CONFUSED THAN EARLIER. PATIENT KNOWS HE IS HAVING DIFFICULTY WITH HIS MEMORY. DOES NOT UNDERSTAND WHY. HE REMEMBERS ONE HOSPITALIZATION. REMEMBERS SOMEWHAT ABOUT SURGERY. HE STATED HE WAS TO HAVE OUTPATIENT PHYSICAL THERAPY AT [facility]. HE DID NOT HAVE ANY HOME HEALTH SERVICES. HIS PLAN IS HOME W/ OUTPATIENT THERAPY. THE NURSE STATES HE WAS MAX ASSIST OF TWO TO GET FROM WHEELCHAIR TO BED ON HIS ARRIVAL. HE IS ASSIST OF TWO TO GET ONTO THE BEDPAN. HE IS MOVING ABOUT BETTER IN THE BED. SKILLED VS ACUTE REHAB WILL LIKELY BE MORE APPROPRIATE. DR SHETTY STATES FROM HIS PERSPECTIVE HE CAN START THERAPY. NURSE TO CALL FAMILY PRACTICE FOR ORDER. PATIENT HAS HAD A BOWEL MOVEMENT TODAY. DCP- Discharge Planning Updated by [id number]: Dania Edwards on 09/18/18 10:[address] LATE ENTRY 0930 CM ATTEMPTED TO VISIT THE PATIENT THIS AM. PRIMARY GOING TO THE BEDSIDE TO GIVE MEDICATIONS AND BATH. 1045 CM TO VISIT. PATIENT WAS AWAKE DURING THE NIGHT CONTACTING HIS . SHE VISITED EARLY THIS AM. STATES SHE WILL RETURN TOMORROW. NORMALLY SHE WOULD STAY THRU LUNCH. PATIENT REQUIRED ASSIST OF TWO FOR BATHING. HE IS CONFUSED TO TIME. FREQUENTLY REPEATS HIMSELF. RECEIVED FIRST DOSE OF ELIQUIS TODAY. ORTHO TO SEE TODAY. DR MORGAN UNAVAILABLE. DR CARDENAS TO FOLLOW. PULMONARY FOLLOWING. WILL FOLLOWUP REGARDING OT AND PT. PATIENT IS PRESENTLY ON BEDREST. WILL CONTACT HIS THIS AFTERNOON. PREVIOUS STATION BAGGAGE AGENT INDICATED REHAB EVAL PENDING. NO PT OR OT NOTES YET THERAPIES ARE ON HOLD. CM FOLLOWING. PATIENT WITH HX OF FALLS AT HOME POST PROCEDURE DCP- Discharge Planning Updated by [id number]: Dania Edwards on 09/17/18 6:[address] CM TO VISIT FOR DISCHARGE PLANNING ASSESSMENT. PATIENT LIVES AT [facility]. Coverage Notice Reviewer: [id number] - Harriet Rhodes Notice Issued Date-Time: 09/22/2018 9:10 Notice Type: IM Discharge Notice Notice Delivered To: Patient Relationship to Patient: Self Health Records Technology Teacher Name: Delivery Method: HAND - Hand Delivered Myla Days: Prior Verbal Notification: Recipient Understood Notice: Yes Recipient Signature: Yes Med Rec Note Co-signed by Attending: Coverage Notice Comment: Last DP export: 09/22/18 8:54 am Patient Name: EDGARD PLEITEZ Page [id number] at 0950 All edits/amendments must be made on the electronic document DICTATION DATE: 09/23/18948 OCCUPATIONAL THERAPIST HOME BASED: MAGUI 09/23/18948 RPT#: [id number] DC DATE: STATUS: ADM IN [facility] [address] [place] [address] END OF REPORT
[2018-09-23 12:15] VITALS: BP 122/73
--- NOTE | 2018-09-23 12:17 | NUR ---
Rehab Note- Spoke with FERNANDO Layton concerning pending Ortho interventions. Will continue to follow at this time. Thank you for this referral! Justine Anguiano RN CLinical Liaison, [facility] Rehab
--- NOTE | 2018-09-23 13:40 | NUR ---
DR IVERSON AT BEDSIDE
--- NOTE | 2018-09-23 13:55 | MORECARE ---
CASE MANAGEMENT DISCHARGE SUMMARY PATIENT: EDGARD PLEITEZ JR UNIT: [id number] ADM DATE: 09/15/18 AGE: 78 : 38 SEX: M ROOM/BED: D.1209 AUTHOR: LIDIA,DOC PHYSICIAN: REFERRING PHYSICIAN: MACI NEWBERRY DO DATE OF SERVICE: 09/23/18 Discharge Plan Patient Name: EDGARD PLEITEZ Facility: [facility]:[place] : 1940 Planned Disposition: Home Anticipated Discharge Date: Discharge Date: Expected LOS: Initial Reviewer: [email or web address] Initial Review Date: 09/16/2018 Generated: 09/23/18 2:54 pm Comments DCP- Discharge Planning Updated by [id number]: Harriet Rhodes on 09/22/18 8:[address] Patient Name: EDGARD PLEITEZ Admission Status: Elective Accout number: [id number] Admission Date: 09-15-2018 : 1940 Admission Diagnosis:PERIPHERAL VASCULAR DISEASE, UNSPECIFIED Attending: MACI NEWBERRY Current LOS: 7 Anticipated DC Date: Planned Disposition: Home Primary Insurance: MEDICARE A & B Discharge Planning Comments: CM met with patient to complete initial dc planning assessment. CM educated patient on the CM role and verbal consent given by patient to complete assessment. CM verified patient's address, phone number, and emergency contact phone numbers. Patient lives at home with family and reports he is independent in his care. At discharge patient plans to return home and feels this is a safe discharge. CM discussed availability of home health, rehab services, and medical equipment. Patient denied known discharge needs at this time.. CM will continue to follow and will assist as needed with dc plans/needs. Solar Photovoltaic Electrician: Harriet Rhodes DCP- Discharge Planning Updated by [id number]: Dania Edwards on 09/18/18 2:[address] LATE ENTRY 1417 TC TO THE PATIENT'S . NO ANSWER AND VOICE MAIL WAS FULL. 1430 CM VISITED WITH THE PATIENT. HE IS ALERT. LESS CONFUSED THAN EARLIER. PATIENT KNOWS HE IS HAVING DIFFICULTY WITH HIS MEMORY. DOES NOT UNDERSTAND WHY. HE REMEMBERS ONE HOSPITALIZATION. REMEMBERS SOMEWHAT ABOUT SURGERY. HE STATED HE WAS TO HAVE OUTPATIENT PHYSICAL THERAPY AT [facility]. HE DID NOT HAVE ANY HOME HEALTH SERVICES. HIS PLAN IS HOME W/ OUTPATIENT THERAPY. THE NURSE STATES HE WAS MAX ASSIST OF TWO TO GET FROM WHEELCHAIR TO BED ON HIS ARRIVAL. HE IS ASSIST OF TWO TO GET ONTO THE BEDPAN. HE IS MOVING ABOUT BETTER IN THE BED. SKILLED VS ACUTE REHAB WILL LIKELY BE MORE APPROPRIATE. DR SHETTY STATES FROM HIS PERSPECTIVE HE CAN START THERAPY. NURSE TO CALL FAMILY PRACTICE FOR ORDER. PATIENT HAS HAD A BOWEL MOVEMENT TODAY. DCP- Discharge Planning Updated by [id number]: Dania Edwards on 09/18/18 10:[address] LATE ENTRY 0930 CM ATTEMPTED TO VISIT THE PATIENT THIS AM. PRIMARY GOING TO THE BEDSIDE TO GIVE MEDICATIONS AND BATH. 1045 CM TO VISIT. PATIENT WAS AWAKE DURING THE NIGHT CONTACTING HIS . SHE VISITED EARLY THIS AM. STATES SHE WILL RETURN TOMORROW. NORMALLY SHE WOULD STAY THRU LUNCH. PATIENT REQUIRED ASSIST OF TWO FOR BATHING. HE IS CONFUSED TO TIME. FREQUENTLY REPEATS HIMSELF. RECEIVED FIRST DOSE OF ELIQUIS TODAY. ORTHO TO SEE TODAY. DR MORGAN UNAVAILABLE. DR CARDENAS TO FOLLOW. PULMONARY FOLLOWING. WILL FOLLOWUP REGARDING OT AND PT. PATIENT IS PRESENTLY ON BEDREST. WILL CONTACT HIS THIS AFTERNOON. PREVIOUS OYSTER CULLER INDICATED REHAB EVAL PENDING. NO PT OR OT NOTES YET THERAPIES ARE ON HOLD. CM FOLLOWING. PATIENT WITH HX OF FALLS AT HOME POST PROCEDURE DCP- Discharge Planning Updated by [id number]: Dania Edwards on 09/17/18 6:[address] CM TO VISIT FOR DISCHARGE PLANNING ASSESSMENT. PATIENT LIVES AT [facility]. Coverage Notice Reviewer: [id number] - Harriet Rhodes Notice Issued Date-Time: 09/22/2018 9:10 Notice Type: IM Discharge Notice Notice Delivered To: Patient Relationship to Patient: Self Business Services Intern Name: Delivery Method: HAND - Hand Delivered Myla Days: Prior Verbal Notification: Recipient Understood Notice: Yes Recipient Signature: Yes Med Rec Note Co-signed by Attending: Coverage Notice Comment: Last DP export: 09/23/18 8:50 am Patient Name: EDGARD PLEITEZ Page [id number] at 1353 All edits/amendments must be made on the electronic document DICTATION DATE: 09/23/18 1719 TELECOMMUNICATIONS MANAGER: MAGUI 09/23/18 4716 RPT#: [id number] DC DATE: STATUS: ADM IN [facility] [address] [place] [address] END OF REPORT
--- NOTE | 2018-09-23 14:56 | NUR ---
Nutrition follow-up: Diet: ADA with chopped meat PO intake ~50% average of meals Labs reviewed Wt: 182# Last BM charted 09/18 Will offer nutritional supplements. RDN following.
[2018-09-23 15:56] VITALS: BP 126/81
--- NOTE | 2018-09-23 18:18 | NUR ---
I have reviewed this patient and I concur with the Shift Assessment completed by the Licensed Practical Nurse today this shift.
[2018-09-23 20:00] VITALS: BP 129/76
--- NOTE | 2018-09-23 20:19 | NUR ---
ROUNDS COMPLETED. VSS, AAOX4, NO S/S OF DISTRESS. RR EVEN AND UNLABORED. PT ON ROOM AIR. R.ARM APPEARS EDEMATOUS WITH POOR RANGE OR MOTION ON R.ARM. SKIN TEAR TO LEFT ELBOW. PT DENIES ANY FURTHER NEEDS AT THIS TIME. WILL CPOC.
--- NOTE | 2018-09-23 21:45 | NUR ---
TALKED TO PT ABOUT THE NEED TO HAVE SCD ON. PT REFUSED SCD.
[2018-09-24 00:53] VITALS: BP 130/73
[2018-09-24 04:00] VITALS: BP 124/68
[2018-09-24 05:57] LABS: CALC OSMOLALITY 277 mosm/kg (275-300); CALCIUM 8.8 mg/dL (8.5-10.1); CARBON DIOXIDE 30.7 mmol/L (21.0-32.0); CHLORIDE - SERUM 102 mmol/L (98-107); CREATININE - SERUM 0.9 mg/dL (0.6-1.3); POTASSIUM - SERUM 3.5 mmol/L (3.5-5.1); SODIUM 139 mmol/L (136-145); UREA NITROGEN 17 mg/dL (7-18); eGFR NON AFRICAN AMERICAN 86 mL/min (90-120)
[2018-09-24 06:04] LABS: GLUCOSE 64 mg/dL (74-106)
[2018-09-24 06:05] LABS: BASOPHILS 0.1 % (0-2); EOSINOPHILS 0.4 % (0-7); HEMATOCRIT 34.3 % (42.0-54.0); HEMOGLOBIN 11.4 g/dL (13.5-17.5); IMMATURE GRANULOCYTES 1.3 % (0-5); LYMPHOCYTES 24.5 % (15-50); MCH 30.6 pg (26.0-34.0); MCHC 33.2 g/dL (31.0-37.0); MCV 92.2 fL (80.0-100.0); MEAN PLATELET VOLUME 9.3 fL (7.4-10.4); MONOCYTES 9.7 % (2-11); PLATELET COUNT 366 10x3/uL (130-400); RBC 3.72 10x6/uL (4.20-6.10); WBC 8.4 10x3/uL (4.8-10.8)
--- NOTE | 2018-09-24 06:42 | NUR ---
PT FSBS BLOOD SUGAR 68. HELD INSULIN PER SLIDING SCALE. 2 CAN OF ORANGE JUICE GIVEN @ THIS TIME WILL CTM.
--- NOTE | 2018-09-24 07:00 | NUR ---
PT SITTING UP IN BED. 200 ML OUTPUT CLEAR, YELLOW. NO DISTRESS NOTED. RR EVEN AND UNLABORED. DENIES NEEDS AT THIS TIME. DECREASED SWELLING IN RIGHT ARM NOTED. ASSESSMENT DONE. WILL CONTINUE TO MONITOR.
[2018-09-24 09:12] VITALS: BP 135/75
--- NOTE | 2018-09-24 14:58 | MORECARE ---
CASE MANAGEMENT DISCHARGE SUMMARY PATIENT: EDGARD PLEITEZ JR UNIT: [id number] ADM DATE: 09/15/18 AGE: 78 : 38 SEX: M ROOM/BED: D.1209 AUTHOR: JANA MURILLO PHYSICIAN: REFERRING PHYSICIAN: MACI NEWBERRY DO DATE OF SERVICE: 09/24/18 Discharge Plan Patient Name: EDGARD PLEITEZ Facility: [facility]:[place] : 1940 Planned Disposition: Home Anticipated Discharge Date: Discharge Date: Expected LOS: Initial Reviewer: [id number] Initial Review Date: 09/16/2018 Generated: 09/24/18 3:58 pm Comments DCP- Discharge Planning Updated by [email or web address]: Macy Rick on 09/24/18 1:[address] Late entry for 1110 this morning. CM paged Dr. Pierre, return call from nurse in surgery stating he was in a procedure for 25 more min and he took message. CM asked him to inform Dr. Pierre that the patient has been accepted to Inpatient rehab once cleared medically. CM also asked him to let Dr. Pierre know that we needed a update as there was no note on the chart since the 20 of September. Cm will continue to follow and will assist as needed with dc plans/needs. Radiology Transporter: Macy Rick RN, [facility] DCP- Discharge Planning Updated by [email or web address]: Harriet Rhodes on 09/22/18 8:[address] Patient Name: EDGARD PLEITEZ Admission Status: Elective Accout number: [id number] Admission Date: 09-15-2018 : 1940 Admission Diagnosis:PERIPHERAL VASCULAR DISEASE, UNSPECIFIED Attending: MACI NEWBERRY Current LOS: 7 Anticipated DC Date: Planned Disposition: Home Primary Insurance: MEDICARE A & B Discharge Planning Comments: CM met with patient to complete initial dc planning assessment. CM educated patient on the CM role and verbal consent given by patient to complete assessment. CM verified patient's address, phone number, and emergency contact phone numbers. Patient lives at home with family and reports he is independent in his care. At discharge patient plans to return home and feels this is a safe discharge. CM discussed availability of home health, rehab services, and medical equipment. Patient denied known discharge needs at this time.. CM will continue to follow and will assist as needed with dc plans/needs. Radiology Transporter: Harriet Rhodes DCP- Discharge Planning Updated by [email or web address]: Dania Edwards on 09/18/18 2:[address] LATE ENTRY 1417 TC TO THE PATIENT'S . NO ANSWER AND VOICE MAIL WAS FULL. 1430 CM VISITED WITH THE PATIENT. HE IS ALERT. LESS CONFUSED THAN EARLIER. PATIENT KNOWS HE IS HAVING DIFFICULTY WITH HIS MEMORY. DOES NOT UNDERSTAND WHY. HE REMEMBERS ONE HOSPITALIZATION. REMEMBERS SOMEWHAT ABOUT SURGERY. HE STATED HE WAS TO HAVE OUTPATIENT PHYSICAL THERAPY AT [facility]. HE DID NOT HAVE ANY HOME HEALTH SERVICES. HIS PLAN IS HOME W/ OUTPATIENT THERAPY. THE NURSE STATES HE WAS MAX ASSIST OF TWO TO GET FROM WHEELCHAIR TO BED ON HIS ARRIVAL. HE IS ASSIST OF TWO TO GET ONTO THE BEDPAN. HE IS MOVING ABOUT BETTER IN THE BED. SKILLED VS ACUTE REHAB WILL LIKELY BE MORE APPROPRIATE. DR SHETTY STATES FROM HIS PERSPECTIVE HE CAN START THERAPY. NURSE TO CALL FAMILY PRACTICE FOR ORDER. PATIENT HAS HAD A BOWEL MOVEMENT TODAY. DCP- Discharge Planning Updated by [email or web address]: Dania Edwards on 09/18/18 10:[address] LATE ENTRY 0930 CM ATTEMPTED TO VISIT THE PATIENT THIS AM. PRIMARY GOING TO THE BEDSIDE TO GIVE MEDICATIONS AND BATH. 1045 CM TO VISIT. PATIENT WAS AWAKE DURING THE NIGHT CONTACTING HIS . SHE VISITED EARLY THIS AM. STATES SHE WILL RETURN TOMORROW. NORMALLY SHE WOULD STAY THRU LUNCH. PATIENT REQUIRED ASSIST OF TWO FOR BATHING. HE IS CONFUSED TO TIME. FREQUENTLY REPEATS HIMSELF. RECEIVED FIRST DOSE OF ELIQUIS TODAY. ORTHO TO SEE TODAY. DR MORGAN UNAVAILABLE. DR CARDENAS TO FOLLOW. PULMONARY FOLLOWING. WILL FOLLOWUP REGARDING OT AND PT. PATIENT IS PRESENTLY ON BEDREST. WILL CONTACT HIS THIS AFTERNOON. PREVIOUS MANUFACTURERS REPRESENTATIVE INDICATED REHAB EVAL PENDING. NO PT OR OT NOTES YET THERAPIES ARE ON HOLD. CM FOLLOWING. PATIENT WITH HX OF FALLS AT HOME POST PROCEDURE DCP- Discharge Planning Updated by [id number]: Dania Edwards on 09/17/18 6:[address] CM TO VISIT FOR DISCHARGE PLANNING ASSESSMENT. PATIENT LIVES AT [facility]. Coverage Notice Reviewer: [email or web address] - Harriet Rhodes Notice Issued Date-Time: 09/22/2018 9:10 Notice Type: IM Discharge Notice Notice Delivered To: Patient Relationship to Patient: Self Boiler Cleaner Name: Delivery Method: HAND - Hand Delivered Myla Days: Prior Verbal Notification: Recipient Understood Notice: Yes Recipient Signature: Yes Med Rec Note Co-signed by Attending: Coverage Notice Comment: Last DP export: 09/23/18 12:54 pm Patient Name: EDGARD PLEITEZ Page [phone] at 1458 All edits/amendments must be made on the electronic document DICTATION DATE: 09/24/18 1457 CREEL SELECTOR: MAGUI 09/24/18 1457 RPT#: [id number] DC DATE: STATUS: ADM IN [facility] [address] [place] [address] END OF REPORT
--- NOTE | 2018-09-24 15:27 | MORECARE ---
CASE MANAGEMENT DISCHARGE SUMMARY PATIENT: EDGARD PLEITEZ JR UNIT: [id number] ADM DATE: 09/15/18 AGE: 78 : 38 SEX: M ROOM/BED: D.1209 AUTHOR: LIDIA,DOC PHYSICIAN: REFERRING PHYSICIAN: MACI NEWBERRY DO DATE OF SERVICE: 09/24/18 Discharge Plan Patient Name: EDGARD PLEITEZ Facility: [facility]:[place] : 1940 Planned Disposition: Home Anticipated Discharge Date: Discharge Date: Expected LOS: Initial Reviewer: [email or web address] Initial Review Date: 09/16/2018 Generated: 09/24/18 4:27 pm Comments DCP- Discharge Planning Updated by [email or web address]: Macy Rick on 09/24/18 2:[address] Pierre who stated Dr. Morgan is going to see the patient this afternoon to see if he wants him to do the revision or if he still wants Dr. Pierre to do the procedure. Dr. Pierre said he is happy to do the procedure if that is what the patient still wants after Dr. Morgan meets with the patient. Cm will continue to follow and will assist as needed with dc plans/needs. Scholarship Counselor: Macy Rick DCP- Discharge Planning Updated by [id number]: Macy Rick on 09/24/18 1:[address] Late entry for 1110 this morning. CM paged Dr. Pierre, return call from nurse in surgery stating he was in a procedure for 25 more min and he took message. CM asked him to inform Dr. Pierre that the patient has been accepted to Inpatient rehab once cleared medically. CM also asked him to let Dr. Pierre know that we needed a update as there was no note on the chart since the 20 of September. Cm will continue to follow and will assist as needed with dc plans/needs. Scholarship Counselor: Macy Rick RN, [facility] DCP- Discharge Planning Updated by [id number]: Harriet Rhodes on 09/22/18 8:[address] Patient Name: EDGARD PLEITEZ Admission Status: Elective Accout number: [id number] Admission Date: 09-15-2018 : 1940 Admission Diagnosis:PERIPHERAL VASCULAR DISEASE, UNSPECIFIED Attending: MACI NEWBERRY Current LOS: 7 Anticipated DC Date: Planned Disposition: Home Primary Insurance: MEDICARE A & B Discharge Planning Comments: CM met with patient to complete initial dc planning assessment. CM educated patient on the CM role and verbal consent given by patient to complete assessment. CM verified patient's address, phone number, and emergency contact phone numbers. Patient lives at home with family and reports he is independent in his care. At discharge patient plans to return home and feels this is a safe discharge. CM discussed availability of home health, rehab services, and medical equipment. Patient denied known discharge needs at this time.. CM will continue to follow and will assist as needed with dc plans/needs. Scholarship Counselor: Harriet Rhodes DCP- Discharge Planning Updated by [email or web address]: Dania Edwards on 09/18/18 2:[address] LATE ENTRY 1417 TC TO THE PATIENT'S . NO ANSWER AND VOICE MAIL WAS FULL. 1430 CM VISITED WITH THE PATIENT. HE IS ALERT. LESS CONFUSED THAN EARLIER. PATIENT KNOWS HE IS HAVING DIFFICULTY WITH HIS MEMORY. DOES NOT UNDERSTAND WHY. HE REMEMBERS ONE HOSPITALIZATION. REMEMBERS SOMEWHAT ABOUT SURGERY. HE STATED HE WAS TO HAVE OUTPATIENT PHYSICAL THERAPY AT [facility]. HE DID NOT HAVE ANY HOME HEALTH SERVICES. HIS PLAN IS HOME W/ OUTPATIENT THERAPY. THE NURSE STATES HE WAS MAX ASSIST OF TWO TO GET FROM WHEELCHAIR TO BED ON HIS ARRIVAL. HE IS ASSIST OF TWO TO GET ONTO THE BEDPAN. HE IS MOVING ABOUT BETTER IN THE BED. SKILLED VS ACUTE REHAB WILL LIKELY BE MORE APPROPRIATE. DR SHETTY STATES FROM HIS PERSPECTIVE HE CAN START THERAPY. NURSE TO CALL FAMILY PRACTICE FOR ORDER. PATIENT HAS HAD A BOWEL MOVEMENT TODAY. DCP- Discharge Planning Updated by [email or web address]: Dania Edwards on 09/18/18 10:[address] LATE ENTRY 0930 CM ATTEMPTED TO VISIT THE PATIENT THIS AM. PRIMARY GOING TO THE BEDSIDE TO GIVE MEDICATIONS AND BATH. 1045 CM TO VISIT. PATIENT WAS AWAKE DURING THE NIGHT CONTACTING HIS . SHE VISITED EARLY THIS AM. STATES SHE WILL RETURN TOMORROW. NORMALLY SHE WOULD STAY THRU LUNCH. PATIENT REQUIRED ASSIST OF TWO FOR BATHING. HE IS CONFUSED TO TIME. FREQUENTLY REPEATS HIMSELF. RECEIVED FIRST DOSE OF ELIQUIS TODAY. ORTHO TO SEE TODAY. DR MORGAN UNAVAILABLE. DR CARDENAS TO FOLLOW. PULMONARY FOLLOWING. WILL FOLLOWUP REGARDING OT AND PT. PATIENT IS PRESENTLY ON BEDREST. WILL CONTACT HIS THIS AFTERNOON. PREVIOUS ELECTRICAL TESTER BATTERY INDICATED REHAB EVAL PENDING. NO PT OR OT NOTES YET THERAPIES ARE ON HOLD. CM FOLLOWING. PATIENT WITH HX OF FALLS AT HOME POST PROCEDURE DCP- Discharge Planning Updated by [email or web address]: Dania Edwards on 09/17/18 6:[address] CM TO VISIT FOR DISCHARGE PLANNING ASSESSMENT. PATIENT LIVES AT [facility]. Coverage Notice Reviewer: [id number] Adalgisa Rhodes Notice Issued Date-Time: 09/22/2018 9:10 Notice Type: IM Discharge Notice Notice Delivered To: Patient Relationship to Patient: Self Business System Consultant Name: Delivery Method: HAND - Hand Delivered Myla Days: Prior Verbal Notification: Recipient Understood Notice: Yes Recipient Signature: Yes Med Rec Note Co-signed by Attending: Coverage Notice Comment: Last DP export: 09/24/18 1:58 pm Patient Name: EDGARD PLEITEZ Page [phone] at 1527 All edits/amendments must be made on the electronic document DICTATION DATE: 09/24/18 1527 SPECIALIST ICU: MAGUI 09/24/18 1527 RPT#: [id number] DC DATE: STATUS: ADM IN [facility] [address] [place] [address] END OF REPORT
--- NOTE | 2018-09-24 16:31 | MORECARE ---
CASE MANAGEMENT DISCHARGE SUMMARY PATIENT: EDGARD PLEITEZ JR UNIT: [id number] ADM DATE: 09/15/18 AGE: 78 : 38 SEX: M ROOM/BED: D.1209 AUTHOR: LIDIA,DOC PHYSICIAN: REFERRING PHYSICIAN: MACI NEWBERRY DO DATE OF SERVICE: 09/24/18 Discharge Plan Patient Name: EDGARD PLEITEZ Facility: [facility]:[place] : 1940 Planned Disposition: Home Anticipated Discharge Date: Discharge Date: Expected LOS: Initial Reviewer: [email or web address] Initial Review Date: 09/16/2018 Generated: 09/24/18 5:31 pm Comments DCP- Discharge Planning Updated by [email or web address]: Macy Rick on 09/24/18 2:[address] Pierre who stated Dr. Morgan is going to see the patient this afternoon to see if he wants him to do the revision or if he still wants Dr. Pierre to do the procedure. Dr. Pierre said he is happy to do the procedure if that is what the patient still wants after Dr. Morgan meets with the patient. Cm will continue to follow and will assist as needed with dc plans/needs. Chief Jailer: Macy Rick DCP- Discharge Planning Updated by [email or web address]: Macy Rick on 09/24/18 1:[address] Late entry for 1110 this morning. CM paged Dr. Pierre, return call from nurse in surgery stating he was in a procedure for 25 more min and he took message. CM asked him to inform Dr. Pierre that the patient has been accepted to Inpatient rehab once cleared medically. CM also asked him to let Dr. Pierre know that we needed a update as there was no note on the chart since the 20 of September. Cm will continue to follow and will assist as needed with dc plans/needs. Chief Jailer: Macy Rick RN, [facility] DCP- Discharge Planning Updated by [id number]: Harriet Rhodes on 09/22/18 8:[address] Patient Name: EDGARD PLEITEZ Admission Status: Elective Accout number: [id number] Admission Date: 09-15-2018 : 1940 Admission Diagnosis:PERIPHERAL VASCULAR DISEASE, UNSPECIFIED Attending: MACI NEWBERRY Current LOS: 7 Anticipated DC Date: Planned Disposition: Home Primary Insurance: MEDICARE A & B Discharge Planning Comments: CM met with patient to complete initial dc planning assessment. CM educated patient on the CM role and verbal consent given by patient to complete assessment. CM verified patient's address, phone number, and emergency contact phone numbers. Patient lives at home with family and reports he is independent in his care. At discharge patient plans to return home and feels this is a safe discharge. CM discussed availability of home health, rehab services, and medical equipment. Patient denied known discharge needs at this time.. CM will continue to follow and will assist as needed with dc plans/needs. Chief Jailer: Harriet Rhodes DCP- Discharge Planning Updated by [id number]: Dania Edwards on 09/18/18 2:[address] LATE ENTRY 1417 TC TO THE PATIENT'S . NO ANSWER AND VOICE MAIL WAS FULL. 1430 CM VISITED WITH THE PATIENT. HE IS ALERT. LESS CONFUSED THAN EARLIER. PATIENT KNOWS HE IS HAVING DIFFICULTY WITH HIS MEMORY. DOES NOT UNDERSTAND WHY. HE REMEMBERS ONE HOSPITALIZATION. REMEMBERS SOMEWHAT ABOUT SURGERY. HE STATED HE WAS TO HAVE OUTPATIENT PHYSICAL THERAPY AT [facility]. HE DID NOT HAVE ANY HOME HEALTH SERVICES. HIS PLAN IS HOME W/ OUTPATIENT THERAPY. THE NURSE STATES HE WAS MAX ASSIST OF TWO TO GET FROM WHEELCHAIR TO BED ON HIS ARRIVAL. HE IS ASSIST OF TWO TO GET ONTO THE BEDPAN. HE IS MOVING ABOUT BETTER IN THE BED. SKILLED VS ACUTE REHAB WILL LIKELY BE MORE APPROPRIATE. DR SHETTY STATES FROM HIS PERSPECTIVE HE CAN START THERAPY. NURSE TO CALL FAMILY PRACTICE FOR ORDER. PATIENT HAS HAD A BOWEL MOVEMENT TODAY. DCP- Discharge Planning Updated by [id number]: Dania Edwards on 09/18/18 10:[address] LATE ENTRY 0930 CM ATTEMPTED TO VISIT THE PATIENT THIS AM. PRIMARY GOING TO THE BEDSIDE TO GIVE MEDICATIONS AND BATH. 1045 CM TO VISIT. PATIENT WAS AWAKE DURING THE NIGHT CONTACTING HIS . SHE VISITED EARLY THIS AM. STATES SHE WILL RETURN TOMORROW. NORMALLY SHE WOULD STAY THRU LUNCH. PATIENT REQUIRED ASSIST OF TWO FOR BATHING. HE IS CONFUSED TO TIME. FREQUENTLY REPEATS HIMSELF. RECEIVED FIRST DOSE OF ELIQUIS TODAY. ORTHO TO SEE TODAY. DR MORGAN UNAVAILABLE. DR CARDENAS TO FOLLOW. PULMONARY FOLLOWING. WILL FOLLOWUP REGARDING OT AND PT. PATIENT IS PRESENTLY ON BEDREST. WILL CONTACT HIS THIS AFTERNOON. PREVIOUS POLICE JUSTICE INDICATED REHAB EVAL PENDING. NO PT OR OT NOTES YET THERAPIES ARE ON HOLD. CM FOLLOWING. PATIENT WITH HX OF FALLS AT HOME POST PROCEDURE DCP- Discharge Planning Updated by [id number]: Dania Edwards on 09/17/18 6:[address] CM TO VISIT FOR DISCHARGE PLANNING ASSESSMENT. PATIENT LIVES AT [facility]. Coverage Notice Reviewer: [id number] Adalgisa Rhodes Notice Issued Date-Time: 09/22/2018 9:10 Notice Type: IM Discharge Notice Notice Delivered To: Patient Relationship to Patient: Self Virtual Assistant For Advertisers Name: Delivery Method: HAND - Hand Delivered Myla Days: Prior Verbal Notification: Recipient Understood Notice: Yes Recipient Signature: Yes Med Rec Note Co-signed by Attending: Coverage Notice Comment: Last DP export: 09/24/18 2:27 pm Patient Name: EDGARD PLEITEZ Page [phone] at 1631 All edits/amendments must be made on the electronic document DICTATION DATE: 09/24/18 1631 ENTERPRISE SOFTWARE ENGINEER: MAGUI 09/24/18 1631 RPT#: [id number] DC DATE: STATUS: ADM IN [facility] [address] [place] [address] END OF REPORT
[2018-09-24 17:46] VITALS: BP 124/95
--- NOTE | 2018-09-24 19:49 | NUR ---
RECIEVED REPORT, ROUNDS COMPLETED. VSS, AAOX3, PT UP IN BED WITH EYES OPEN, NO S/S OF DISTRESS. RR EVEN AND UNLABORED. PT VOICED CONCERNS ABOUT BEEN CONSTIPATED. WILL NOTIFY BUCKET CHUCKER. RIGHT HAND APPEARS EDEMATOUS, PT DENIES PAIN AT THIS TIME. ASSIST PT WITH CLEANING HIS DENTURES. PT DENIES ANY FURTHER NEEDS FOR COMFORT CARE. CL WITHIN [facility], BED IN LOW, SR UP X2. ALTHEA ALARM ON.
[2018-09-24 20:00] VITALS: BP 133/78
[2018-09-25] VITALS: BP 130/69
[2018-09-25 04:00] VITALS: BP 138/71
[2018-09-25 08:00] VITALS: BP 147/86
--- NOTE | 2018-09-25 08:45 | NUR ---
PATIENT IN BED WITH NO COMPLAINTS. SITTING UP EATING BREAKFAST. IV INTACT. CALL LIGHT WITHIN REACH.
[2018-09-25 08:54] LABS: BASOPHILS 0.3 % (0-2); EOSINOPHILS 0.5 % (0-7); HEMATOCRIT 35.5 % (42.0-54.0); HEMOGLOBIN 12.2 g/dL (13.5-17.5); IMMATURE GRANULOCYTES 0.9 % (0-5); LYMPHOCYTES 25.8 % (15-50); MCH 31.9 pg (26.0-34.0); MCHC 34.4 g/dL (31.0-37.0); MCV 92.7 fL (80.0-100.0); MEAN PLATELET VOLUME 9.3 fL (7.4-10.4); MONOCYTES 8.8 % (2-11); NEUTROPHILS 63.7 % (40-80); PLATELET COUNT 391 10x3/uL (130-400); RBC 3.83 10x6/uL (4.20-6.10); RDW 14.1 % (11.5-14.5); WBC 8.9 10x3/uL (4.8-10.8)
[2018-09-25 09:06] LABS: CALC OSMOLALITY 277 mosm/kg (275-300); CALCIUM 9.5 mg/dL (8.5-10.1); CARBON DIOXIDE 29.4 mmol/L (21.0-32.0); CHLORIDE - SERUM 102 mmol/L (98-107); CREATININE - SERUM 0.9 mg/dL (0.6-1.3); GLUCOSE 122 mg/dL (74-106); POTASSIUM - SERUM 3.8 mmol/L (3.5-5.1); SODIUM 138 mmol/L (136-145); UREA NITROGEN 15 mg/dL (7-18); eGFR NON AFRICAN AMERICAN 86 mL/min (90-120)
[2018-09-25 13:30] VITALS: BP 118/71
--- NOTE | 2018-09-25 15:45 | NUR ---
PATIENT IN BED WITH IV INTACT. N O COMPLAINTS OR SIGNS OF DISTRESS. IV INTACT. CALL LIGHT WITHIN REACH.
--- NOTE | 2018-09-25 18:59 | NUR ---
PATIENT IN BED WITH IV INTACT.N O COMPLKAINTS OR SIGNS OF DISTRESS. CALL LIGHT WITHIN REACH.
[2018-09-25 19:08] VITALS: BP 122/77
[2018-09-25 20:00] VITALS: BP 123/73
--- NOTE | 2018-09-25 21:00 | NUR ---
ROUNDS COMPLETED. VSS, AAOX3, NO S/S OF DISTRESS. RR EVEN AND UNLABORED. PT IN BED WITH EYES OPEN. VOICED CONCERENS ABOUT HIS SURGERY. NOTIFIED PT ON NEED TO VOICE HIS CONCERNS AND TO SPEAK TO HIS HCP. PT VOICED THANK. PT PUT OUT 200CC'S FROM URINAL AT THIS TIME. WILL CPOC. CL WITHIN REACH, BED IN LOW, SR UP X2, ALTHEA ALARM ON.
[2018-09-26] VITALS: BP 122/69; BP 126/58
[2018-09-26 04:00] VITALS: BP 128/77
--- NOTE | 2018-09-26 06:51 | NUR ---
PT HAD ONE EPISODE OF INCONTINENT BLADDER. CLEANED PT UP, PROVIDED FRESH LINENS. PT VOICED THANKS. WILL CPOC.
[2018-09-26 07:05] LABS: CALC OSMOLALITY 280 mosm/kg (275-300); CALCIUM 9.2 mg/dL (8.5-10.1); CARBON DIOXIDE 30.3 mmol/L (21.0-32.0); CHLORIDE - SERUM 102 mmol/L (98-107); CREATININE - SERUM 0.9 mg/dL (0.6-1.3); GLUCOSE 138 mg/dL (74-106); SODIUM 139 mmol/L (136-145); UREA NITROGEN 16 mg/dL (7-18); eGFR NON AFRICAN AMERICAN 86 mL/min (90-120)
[2018-09-26 07:27] LABS: BASOPHILS 0.1 % (0-2); HEMATOCRIT 35.2 % (42.0-54.0); HEMOGLOBIN 11.6 g/dL (13.5-17.5); IMMATURE GRANULOCYTES 0.8 % (0-5); LYMPHOCYTES 29.4 % (15-50); MCH 30.9 pg (26.0-34.0); MCV 93.6 fL (80.0-100.0); MEAN PLATELET VOLUME 9.2 fL (7.4-10.4); MONOCYTES 7.9 % (2-11); NEUTROPHILS 60.8 % (40-80); PLATELET COUNT 400 10x3/uL (130-400); RBC 3.76 10x6/uL (4.20-6.10); RDW 14.2 % (11.5-14.5); WBC 7.1 10x3/uL (4.8-10.8)
[2018-09-26 08:21] VITALS: BP 138/77
--- NOTE | 2018-09-26 09:48 | NUR ---
DR SCOTT IN TO SEE PT. STATES PLAN IS TO DO REVISION ON SATURDAY.
[2018-09-26 13:04] VITALS: BP 132/74
--- NOTE | 2018-09-26 14:13 | NUR ---
Nutrition Follow Up: Pt stated that his appetite is poor due to nausea. He said that he does not feel hungry. Pt said that he is trying to drink Glucerna. Food preferences noted. Diet: ADA PO Intake: 49% meal avg BM: 09/18/18 - no BM x 8 days? Meds and labs reviewed Rec continue current diet. Will order Glucerna with meals and will honor food preferences. RD following.
--- NOTE | 2018-09-26 14:33 | NUR ---
PT RESTING IN BED WATCHING TV, DENIES NEEDS. WCTM.
[2018-09-26 15:11] VITALS: BP 128/74
--- NOTE | 2018-09-26 16:25 | NUR ---
Rehab Note- Will continue to follow at this time as the patient to have possible surgery on 09/29. Thank you for this referral! Justine Anguiano RN Clinical Liaison, [facility] Rehab
[2018-09-26 20:00] VITALS: BP 129/79
[2018-09-27] VITALS: BP 134/80
[2018-09-27 04:00] VITALS: BP 123/82
[2018-09-27 07:13] LABS: CALC OSMOLALITY 276 mosm/kg (275-300); CALCIUM 9.1 mg/dL (8.5-10.1); CARBON DIOXIDE 28.2 mmol/L (21.0-32.0); CHLORIDE - SERUM 101 mmol/L (98-107); GLUCOSE 182 mg/dL (74-106); POTASSIUM - SERUM 4.1 mmol/L (3.5-5.1); SODIUM 135 mmol/L (136-145); UREA NITROGEN 17 mg/dL (7-18); eGFR NON AFRICAN AMERICAN 76 mL/min (90-120)
[2018-09-27 07:16] LABS: BASOPHILS 0.1 % (0-2); HEMATOCRIT 33.2 % (42.0-54.0); HEMOGLOBIN 11.3 g/dL (13.5-17.5); IMMATURE GRANULOCYTES 0.7 % (0-5); MCH 31.4 pg (26.0-34.0); MEAN PLATELET VOLUME 9.3 fL (7.4-10.4); MONOCYTES 10.8 % (2-11); NEUTROPHILS 58.4 % (40-80); RDW 13.9 % (11.5-14.5); WBC 6.9 10x3/uL (4.8-10.8)
[2018-09-27 07:17] LABS: PLATELET COUNT 313 10x3/uL (130-400)
[2018-09-27 08:05] VITALS: BP 153/87
--- NOTE | 2018-09-27 08:15 | NUR ---
PT RESTING IN BED WATCHING TV. NO ACUTE DISTRESS NOTED. PT DENIES PAIN AT THIS TIME. LIMITED ROM TO RIGHT UPPER EXTREMITY. IV TO LEFT WRIST WITH NS @ 100ML/HR INFUSING VIA PUMP. SITE WITHOUT REDNESS OR EDEMA. DENIES FURTHER NEEDS AT THIS TIME. CL WITHIN REACH. ENCOURAGED TO CALL WITH NEEDS. CONTINUE POC
[2018-09-27 12:04] VITALS: BP 126/80
[2018-09-27 17:17] VITALS: BP 120/76
[2018-09-27 18:44] VITALS: BP 143/82
--- NOTE | 2018-09-27 19:39 | NUR ---
EVENING ROUNDS COMPLETED. VSS, AAOX4. NO S/S OF DISTRESS. PIV INTACT, PT LAYING DOWN IN BED WITH EYES OPEN. DENIES ANY FURTHER NEEDS AT THIS TIME. WILL CTM.
[2018-09-28 00:12] VITALS: BP 126/70
[2018-09-28 04:00] VITALS: BP 119/70
--- NOTE | 2018-09-28 06:08 | NUR ---
FSBS 69. NO INSULIN GIVEN. 2 CANS OF ORANGE JUICE GIVEN AT THIS TIME. WILL CTM.
[2018-09-28 08:20] VITALS: BP 153/78
--- NOTE | 2018-09-28 14:55 | NUR ---
ALERT AND ORIENTED X4. OOB WITH PHYSICAL THERAPY. AMBULATES TO WALL WITH WALKER AND PT. LINEN CHANGE COMPLETE. CONSENTS FOR PROCEDURE SIGNED ON CHART. DENIES ANY NEEDS. CONTINUE PLAN OF CARE AND SAFETY PRECAUTIONS.
[2018-09-28 15:48] VITALS: BP 129/79
--- NOTE | 2018-09-28 18:08 | NUR ---
SITTING UP IN BED WATCHING TV. ALERT AND ORIENTED X4. NO CHANGE. DENIES SOB OR PAIN. CONTINUE PLAN OF CARE AND SAFETY PRECAUTIONS.
[2018-09-29 06:19] LABS: BASOPHILS 0.1 % (0-2); EOSINOPHILS 1.1 % (0-7); HEMATOCRIT 33.7 % (42.0-54.0); HEMOGLOBIN 11.4 g/dL (13.5-17.5); IMMATURE GRANULOCYTES 0.8 % (0-5); LYMPHOCYTES 28.4 % (15-50); MCHC 33.8 g/dL (31.0-37.0); MCV 91.6 fL (80.0-100.0); MEAN PLATELET VOLUME 9.2 fL (7.4-10.4); MONOCYTES 8.8 % (2-11); NEUTROPHILS 60.8 % (40-80); RBC 3.68 10x6/uL (4.20-6.10); RDW 13.7 % (11.5-14.5); WBC 8.3 10x3/uL (4.8-10.8)
[2018-09-29 06:26] LABS: PLATELET COUNT 393 10x3/uL (130-400)
[2018-09-29 06:36] LABS: CALCIUM 9.1 mg/dL (8.5-10.1); CARBON DIOXIDE 28.5 mmol/L (21.0-32.0); CHLORIDE - SERUM 102 mmol/L (98-107); CREATININE - SERUM 0.8 mg/dL (0.6-1.3); SODIUM 136 mmol/L (136-145); UREA NITROGEN 14 mg/dL (7-18); eGFR NON AFRICAN AMERICAN > 90 mL/min (90-120)
[2018-09-29 06:37] LABS: CALC OSMOLALITY 272 mosm/kg (275-300); GLUCOSE 95 mg/dL (74-106); POTASSIUM - SERUM 3.3 mmol/L (3.5-5.1)
--- NOTE | 2018-09-29 07:45 | NUR ---
TAKEN TO PROCEDURE VIA BED. CONTINUE PLAN OF CARE AND SAFETY PRECAUTIONS.
--- NOTE | 2018-09-29 08:49 | NUR ---
0825-[facility] ALCOHOL PREP TO RIGHT SHOULDER/ARM PRIOR TO CHLORAPREP
[2018-09-29 12:12] VITALS: BP 134/75
--- NOTE | 2018-09-29 12:26 | NUR ---
RECEIVED PT FROM PACU. DRESSING NOTED TO LEFT SHOULDER CLEAN DRY AND INTACT. ICE BAG NOTED TO SHOULDER. VS STABLE. CALL LIGHT IN REACH
[2018-09-29 13:08] LABS: LUPUS - INTERPRETATION Comment: (()); LUPUS - dRVVT 47.1 sec (0.0-47.0); PTT-LA 53.5 sec (0.0-51.9); PTT-LA INCUB MIX 48.2 sec (0.0-48.9); PTT-LA MIX 47.2 sec (0.0-48.9)
[2018-09-29 13:13] VITALS: BP 112/65
--- NOTE | 2018-09-29 14:08 | NUR ---
REHAB PRESCREENING Rehab continues to follow this patient. Thank you for this referral! Kelsey Nguyen, [employer] Re[facility]
[2018-09-29 16:46] VITALS: BP 94/54
[2018-09-29 21:13] VITALS: BP 104/67
[2018-09-30 01:24] VITALS: BP 124/64
--- NOTE | 2018-09-30 08:08 | NUR ---
PT ALERT X 4. BREATH SOUNDS CLEAR BILAT. SLING TO RIGHT ARM, DRESSING TO RIGHT SHOULDER CDI. IV TO LEFT FOREARM, PATENT, DRESSING CDI. PT REPORTING PAIN OF 3/10, MEDICATED PER ORDERS, WILL MONITOR. BED LOW, CALL LIGHT IN REACH. NO OTHER NEEDS AT THIS TIME.
[2018-09-30 08:33] LABS: BASOPHILS 0.1 % (0-2); EOSINOPHILS 0 % (0-7); HEMATOCRIT 28.5 % (42.0-54.0); HEMOGLOBIN 9.7 g/dL (13.5-17.5); IMMATURE GRANULOCYTES 0.4 % (0-5); MCH 30.6 pg (26.0-34.0); MCV 89.9 fL (80.0-100.0); MEAN PLATELET VOLUME 8.8 fL (7.4-10.4); NEUTROPHILS 77.5 % (40-80); RBC 3.17 10x6/uL (4.20-6.10); RDW 14.9 % (11.5-14.5)
[2018-09-30 08:40] LABS: CALC OSMOLALITY 278 mosm/kg (275-300); CALCIUM 8.2 mg/dL (8.5-10.1); CARBON DIOXIDE 26.5 mmol/L (21.0-32.0); CHLORIDE - SERUM 106 mmol/L (98-107); GLUCOSE 80 mg/dL (74-106); POTASSIUM - SERUM 3.2 mmol/L (3.5-5.1); SODIUM 139 mmol/L (136-145); UREA NITROGEN 17 mg/dL (7-18); eGFR NON AFRICAN AMERICAN 76 mL/min (90-120)
[2018-09-30 08:43] LABS: PLATELET COUNT 311 10x3/uL (130-400); WBC 14.2 10x3/uL (4.8-10.8)
[2018-09-30 09:30] VITALS: BP 112/68
[2018-09-30 10:30] LABS: % SATURATION 8 % (15-55); IRON 17 ug/dl (35-150); TOTAL IRON BIND CAPACITY 191 ug/dl (260-445); UNSAT IRON BIND CAPACITY 174 ug/dl (150-375)
[2018-09-30 11:12] LABS: HEPATITIS C ANTIBODY <0.1 S/CO RAT (0.0-0.9)
[2018-09-30 13:32] VITALS: BP 93/64
--- NOTE | 2018-09-30 14:58 | NUR ---
NUTRITION F/U PT REPORTS POOR PO INTAKE SECONDARY TO "PEOPLE LINED UP TO DRAW BLOOD OR SOMETHING" AT BREAKFAST. DID NOT LIKE MILK CHOICE SENT AT LUNCH. WILL ADD WHOLE MILK TO DIET ORDER, HONOR FOOD PREFERENCES. RD FOLLOWING
[2018-09-30 17:19] VITALS: BP 96/52
[2018-09-30 18:10] LABS: FACTOR II DNA ANALYSIS Negative (())
[2018-09-30 21:47] VITALS: BP 119/72
[2018-10-01 01:23] VITALS: BP 107/68
[2018-10-01 04:53] VITALS: BP 120/61
--- NOTE | 2018-10-01 07:41 | NUR ---
PT RESTING IN BED WATCHING TV. NO ACUTE DISTRESS NOTED. PT BS RECHECKED NOW 122. DRESSING C/D/I TO RIGHT SHOULDER, SLING IN PLACE. SWELLING AND BRUISING NOTED TO RIGHT UPPER EXTREMITY. IV TO LEFT WRIST WITH NS @ 50ML/HR INFUSING VIA PUMP. SITE WITHOUT REDNESS OR EDEMA. DENIES PAIN AT THIS TIME. DENIES FURTHER NEEDS AT THIS TIME. ENCOURGED TO CALL WITH NEEDS. CL WITHIN REACH. CONTINUE POC
[2018-10-01 07:43] LABS: BASOPHILS 0 % (0-2); EOSINOPHILS 0.1 % (0-7); HEMATOCRIT 26.4 % (42.0-54.0); HEMOGLOBIN 8.7 g/dL (13.5-17.5); IMMATURE GRANULOCYTES 0.6 % (0-5); LYMPHOCYTES 15.9 % (15-50); MCH 30.3 pg (26.0-34.0); MEAN PLATELET VOLUME 9.3 fL (7.4-10.4); MONOCYTES 9.7 % (2-11); NEUTROPHILS 73.7 % (40-80); PLATELET COUNT 321 10x3/uL (130-400); RBC 2.87 10x6/uL (4.20-6.10); RDW 15.3 % (11.5-14.5); WBC 14.6 10x3/uL (4.8-10.8)
[2018-10-01 07:50] LABS: CARBON DIOXIDE 24.7 mmol/L (21.0-32.0); CHLORIDE - SERUM 105 mmol/L (98-107); CREATININE - SERUM 0.9 mg/dL (0.6-1.3); SODIUM 138 mmol/L (136-145); UREA NITROGEN 13 mg/dL (7-18); eGFR NON AFRICAN AMERICAN 86 mL/min (90-120)
[2018-10-01 08:02] LABS: CALC OSMOLALITY 272 mosm/kg (275-300)
[2018-10-01 08:03] LABS: GLUCOSE 44 mg/dL (74-106)
[2018-10-01 08:04] LABS: POTASSIUM - SERUM 2.9 mmol/L (3.5-5.1)
[2018-10-01 08:39] VITALS: BP 118/65
[2018-10-01 10:26] LABS: MAGNESIUM - SERUM 1.9 mg/dL (1.8-2.4); PHOSPHOROUS 2.7 mg/dL (2.5-4.9)
[2018-10-01 13:13] VITALS: BP 123/72
[2018-10-01 17:36] VITALS: BP 122/67
[2018-10-01 20:50] VITALS: BP 138/74
[2018-10-02 00:50] VITALS: BP 154/80
[2018-10-02 04:47] VITALS: BP 158/78
[2018-10-02 06:35] LABS: BASOPHILS 0.2 % (0-2); EOSINOPHILS 0.7 % (0-7); HEMATOCRIT 25.2 % (42.0-54.0); HEMOGLOBIN 8.6 g/dL (13.5-17.5); IMMATURE GRANULOCYTES 0.8 % (0-5); LYMPHOCYTES 18.1 % (15-50); MCH 31.5 pg (26.0-34.0); MCHC 34.1 g/dL (31.0-37.0); MCV 92.3 fL (80.0-100.0); MEAN PLATELET VOLUME 9.2 fL (7.4-10.4); MONOCYTES 7.9 % (2-11); NEUTROPHILS 72.3 % (40-80); PLATELET COUNT 281 10x3/uL (130-400); RBC 2.73 10x6/uL (4.20-6.10); RDW 15.2 % (11.5-14.5)
[2018-10-02 06:45] LABS: WBC 9.8 10x3/uL (4.8-10.8)
[2018-10-02 06:49] LABS: CALC OSMOLALITY 275 mosm/kg (275-300); CALCIUM 8.1 mg/dL (8.5-10.1); CARBON DIOXIDE 26.4 mmol/L (21.0-32.0); CHLORIDE - SERUM 104 mmol/L (98-107); CREATININE - SERUM 0.8 mg/dL (0.6-1.3); GLUCOSE 93 mg/dL (74-106); POTASSIUM - SERUM 3.2 mmol/L (3.5-5.1); SODIUM 138 mmol/L (136-145); UREA NITROGEN 13 mg/dL (7-18); eGFR NON AFRICAN AMERICAN > 90 mL/min (90-120)
--- NOTE | 2018-10-02 07:50 | NUR ---
PT RESTING QUIETLY IN BED WATCHING TV. NO ACUTE DISTRESS NOTED. PT DENIES PAIN AT THIS TIME. VOICES HE HAD A TYLENOL EARLIER AND THAT DID HELP TO RELIEVE THE PAIN THAT HE WAS HAVING. DRESSING TO RIGHT SHOULDER C/D/I. RIGHT UPPER EXTREMITY REMAINS WITH GENERALIZED EDEMA. NO DRAINAGE NOTED THIS AM. IV TO LEFT WRIST WITH NS @ 50ML/HR INFUSING VIA PUMP. SITE WITHOUT REDNESS OR EDEMA. DENIES FURTHER NEEDS AT THIS TIME. CL WITHIN REACH. ENCOURAGED TO CALL WITH NEEDS. CONTINUE POC
[2018-10-02 09:48] VITALS: BP 134/76
[2018-10-02] MEDS ORDERED: Nystatin Oral Susp [ PO (11:58)
[2018-10-02] MEDS ORDERED: LOVENOX80 MG/0.8 SC (11:58)
[2018-10-02] MEDS ORDERED: ACETAMINOPHEN500 M1 PO (11:59)
[2018-10-02] MEDS ORDERED: MUCINEX DM ER1 EAC1 PO (11:59)
[2018-10-02] MEDS ORDERED: [UNRECOGNIZED DRUG - OTHER] PO (11:59)
[2018-10-02] MEDS ORDERED: COLACE100 MG PO (11:59)
[2018-10-02] MEDS ORDERED: MIRALAX17 GM PO (11:59)
[2018-10-02] MEDS ORDERED: PROTONIX40 MG PO (12:00)
[2018-10-02] MEDS ORDERED: HUMULIN R100 U/ML SC (12:00)
--- NOTE | 2018-10-02 12:59 | MORECARE ---
CASE MANAGEMENT DISCHARGE SUMMARY PATIENT: EDGARD PLEITEZ JR UNIT: [id number] ADM DATE: 09/15/18 AGE: 78 : 38 SEX: M ROOM/BED: D.2235 AUTHOR: LIDIA,DOC PHYSICIAN: REFERRING PHYSICIAN: MACI NEWBERRY DO DATE OF SERVICE: 10/02/18 Discharge Plan Patient Name: EDGARD PLEITEZ Facility: [facility]:[place] : 1940 Planned Disposition: Home Anticipated Discharge Date: Discharge Date: Expected LOS: Initial Reviewer: [email or web address] Initial Review Date: 09/16/2018 Generated: 10/02/18 1:58 pm Comments DCP- Discharge Planning Updated by [id number]: Jackie Hodgson on 10/02/18 11:[address] Discharge orders received. I spoke with Justine in inpatient rehab and they will accept today. I spoke with the patient and he is in agreement to discharge today to inpatient rehab, IMM explained and signed. I called patient's (Shavon) and her voice mailbox is full and cannot accept any new messages. Discharging today to inpatient rehab. DCP- Discharge Planning Updated by [id number]: Macy Rick on 09/24/18 2:[address] Pierre who stated Dr. Morgan is going to see the patient this afternoon to see if he wants him to do the revision or if he still wants Dr. Pierre to do the procedure. Dr. Pierre said he is happy to do the procedure if that is what the patient still wants after Dr. Morgan meets with the patient. Cm will continue to follow and will assist as needed with dc plans/needs. Building Guard Deputy Sheriff: Macy Rick DCP- Discharge Planning Updated by [email or web address]: Macy Rick on 09/24/18 1:[address] Late entry for 11[address] this morning. CM paged Dr. Pierre, return call from nurse in surgery stating he was in a procedure for 25 more min and he took message. CM asked him to inform Dr. Pierre that the patient has been accepted to Inpatient rehab once cleared medically. CM also asked him to let Dr. Pierre know that we needed a update as there was no note on the chart since the 20 of September. Cm will continue to follow and will assist as needed with dc plans/needs. Building Guard Deputy Sheriff: Macy Rick RN, [facility] DCP- Discharge Planning Updated by [id number]: Harriet Rhodes on 09/22/18 8:[address] Patient Name: EDGARD PLEITEZ Admission Status: Elective Accout number: [id number] Admission Date: 09-15-2018 : 1940 Admission Diagnosis:PERIPHERAL VASCULAR DISEASE, UNSPECIFIED Attending: MACI NEWBERRY Current LOS: 7 Anticipated DC Date: Planned Disposition: Home Primary Insurance: MEDICARE A & B Discharge Planning Comments: CM met with patient to complete initial dc planning assessment. CM educated patient on the CM role and verbal consent given by patient to complete assessment. CM verified patient's address, phone number, and emergency contact phone numbers. Patient lives at home with family and reports he is independent in his care. At discharge patient plans to return home and feels this is a safe discharge. CM discussed availability of home health, rehab services, and medical equipment. Patient denied known discharge needs at this time.. CM will continue to follow and will assist as needed with dc plans/needs. Building Guard Deputy Sheriff: Harriet Rhodes DCP- Discharge Planning Updated by [email or web address]: Dania Edwards on 09/18/18 2:[address] LATE ENTRY 1417 TC TO THE PATIENT'S . NO ANSWER AND VOICE MAIL WAS FULL. 1430 CM VISITED WITH THE PATIENT. HE IS ALERT. LESS CONFUSED THAN EARLIER. PATIENT KNOWS HE IS HAVING DIFFICULTY WITH HIS MEMORY. DOES NOT UNDERSTAND WHY. HE REMEMBERS ONE HOSPITALIZATION. REMEMBERS SOMEWHAT ABOUT SURGERY. HE STATED HE WAS TO HAVE OUTPATIENT PHYSICAL THERAPY AT [facility]. HE DID NOT HAVE ANY HOME HEALTH SERVICES. HIS PLAN IS HOME W/ OUTPATIENT THERAPY. THE NURSE STATES HE WAS MAX ASSIST OF TWO TO GET FROM WHEELCHAIR TO BED ON HIS ARRIVAL. HE IS ASSIST OF TWO TO GET ONTO THE BEDPAN. HE IS MOVING ABOUT BETTER IN THE BED. SKILLED VS ACUTE REHAB WILL LIKELY BE MORE APPROPRIATE. DR SHETTY STATES FROM HIS PERSPECTIVE HE CAN START THERAPY. NURSE TO CALL FAMILY PRACTICE FOR ORDER. PATIENT HAS HAD A BOWEL MOVEMENT TODAY. DCP- Discharge Planning Updated by [id number]: Dania Edwards on 09/18/18 10:[address] LATE ENTRY 0930 CM ATTEMPTED TO VISIT THE PATIENT THIS AM. PRIMARY GOING TO THE BEDSIDE TO GIVE MEDICATIONS AND BATH. 1045 CM TO VISIT. PATIENT WAS AWAKE DURING THE NIGHT CONTACTING HIS . SHE VISITED EARLY THIS AM. STATES SHE WILL RETURN TOMORROW. NORMALLY SHE WOULD STAY THRU LUNCH. PATIENT REQUIRED ASSIST OF TWO FOR BATHING. HE IS CONFUSED TO TIME. FREQUENTLY REPEATS HIMSELF. RECEIVED FIRST DOSE OF ELIQUIS TODAY. ORTHO TO SEE TODAY. DR MORGAN UNAVAILABLE. DR CARDENAS TO FOLLOW. PULMONARY FOLLOWING. WILL FOLLOWUP REGARDING OT AND PT. PATIENT IS PRESENTLY ON BEDREST. WILL CONTACT HIS THIS AFTERNOON. PREVIOUS SILVER MINER INDICATED REHAB EVAL PENDING. NO PT OR OT NOTES YET THERAPIES ARE ON HOLD. CM FOLLOWING. PATIENT WITH HX OF FALLS AT HOME POST PROCEDURE DCP- Discharge Planning Updated by [id number]: Dania Edwards on 09/17/18 6:[address] CM TO VISIT FOR DISCHARGE PLANNING ASSESSMENT. PATIENT LIVES AT [facility]. Coverage Notice Reviewer: [id number] Adalgisa Rhodes Notice Issued Date-Time: 09/22/2018 9:10 Notice Type: IM Discharge Notice Notice Delivered To: Patient Relationship to Patient: Self Sand Conditioner Name: Delivery Method: HAND - Hand Delivered Myla Days: Prior Verbal Notification: Recipient Understood Notice: Yes Recipient Signature: Yes Med Rec Note Co-signed by Attending: Coverage Notice Comment: Reviewer: [id number] - Jackie Hodgson Notice Issued Date-Time: 10/02/2018 12:47 Notice Type: IM Discharge Notice Notice Delivered To: Patient Relationship to Patient: Self Sand Conditioner Name: Delivery Method: HAND - Hand Delivered Myla Days: Prior Verbal Notification: Recipient Understood Notice: Yes Recipient Signature: Yes Med Rec Note Co-signed by Attending: Coverage Notice Comment: IMM explained, signed, given, copy placed in MR Last DP export: 09/24/18 3:31 pm Patient Name: EDGARD PLEITEZ Page [phone] at 1259 All edits/amendments must be made on the electronic document DICTATION DATE: 10/02/181257 MOP MAN: MAGUI 10/02/181257 RPT#: [id number] DC DATE: STATUS: ADM IN [facility] [address] [place] [address] END OF REPORT
[2018-10-02 13:19] VITALS: BP 131/77
== END 2018-10-02 16:50 | DRG 981 ==
LOC: D.M3 10:42 → D.MS 10:42
PROVIDERS: Anesthesiology; Family Medicine; Internal Medicine Hematology & Oncology; Internal Medicine Nephrology; Internal Medicine Pulmonary Disease; Orthopaedic Surgery; ADMIT Family Medicine; ATTEND Family Medicine
PROC: 0RRJ00Z Replacement of Right Shoulder Joint with Reverse Ball and Socket Synthetic Substitute, Open Approach (ICD-10-PCS; 2018-09-29)
PROC: 0RPJ0JZ Removal of Synthetic Substitute from Right Shoulder Joint, Open Approach (ICD-10-PCS; principal; 2018-09-29 07:30)
DX: I80.8 Phlebitis and thrombophlebitis of other sites (principal); I26.99 Other pulmonary embolism without acute cor pulmonale; E11.621 Type 2 diabetes mellitus with foot ulcer; L97.509 Non-pressure chronic ulcer of other part of unspecified foot with unspecified severity; E87.6 Hypokalemia; D64.9 Anemia, unspecified; B37.9 Candidiasis, unspecified

== ENCOUNTER 2018-10-02 16:22 | Inpatient (IN) | payer MEDICARE, OTHER ==
[~2018-10-02] VITALS: Ht 188 cm; Wt 83.0 kg
[~2018-10-02 16:22] MED LIST changes: +ACETAMINOPHEN500 M1 PO; +COLACE100 MG PO; +HUMULIN R100 U/ML SC; +LOVENOX80 MG/0.8 SC; +MIRALAX17 GM PO; +MUCINEX DM ER1 EAC1 PO; +Nystatin Oral Susp [ PO; +PROTONIX40 MG PO; +[UNRECOGNIZED DRUG - OTHER] PO
[2018-10-02 17:56] VITALS: BP 124/68; BMI 23.5
[2018-10-02 19:20] VITALS: BP 120/70
--- NOTE | 2018-10-02 19:20 | NUR ---
GREETED PATIENT AND INTRODUCED MYSELF. PATIENT IS LAYING IN BED IN SUPINE POSITION. SLING IS OFF OF RIGHT ARM. PATIENT STATED THAT HIS WARM WAS SWOLLEN AND HE WANTED TO GOT WITHOUT SLING AT THIS TIME. RESPIRATIONS EVEN. NO S/S OF DISTRESS. CALL LIGHT IN REACH. VITALS OBTAINED.
--- NOTE | 2018-10-03 03:27 | NUR ---
RESTING IN BED WITH EYES CLOSED AND RESPIRATIONS UNLABORED. NO DISTRESS NOTED. CALL LIGHT IN REACH.
--- NOTE | 2018-10-03 05:03 | NUR ---
QUIET HOURS. RESTING IN BED WITH NO DISTRESS NOTED. NO ACUTE CHANGES IN CONDITION THIS SHIFT. CALL LIGHT IN REACH.
[2018-10-03 06:20] LABS: BASOPHILS 0.1 % (0-2); EOSINOPHILS 0.8 % (0-7); HEMATOCRIT 23.2 % (42.0-54.0); HEMOGLOBIN 7.8 g/dL (13.5-17.5); IMMATURE GRANULOCYTES 0.9 % (0-5); LYMPHOCYTES 27.3 % (15-50); MCH 30.8 pg (26.0-34.0); MCHC 33.6 g/dL (31.0-37.0); MCV 91.7 fL (80.0-100.0); MEAN PLATELET VOLUME 8.9 fL (7.4-10.4); MONOCYTES 8.8 % (2-11); NEUTROPHILS 62.1 % (40-80); PLATELET COUNT 259 10x3/uL (130-400); RBC 2.53 10x6/uL (4.20-6.10); RDW 14.9 % (11.5-14.5)
[2018-10-03 06:52] LABS: CALC OSMOLALITY 274 mosm/kg (275-300); CALCIUM 8.2 mg/dL (8.5-10.1); CARBON DIOXIDE 28.6 mmol/L (21.0-32.0); CHLORIDE - SERUM 102 mmol/L (98-107); CREATININE - SERUM 0.8 mg/dL (0.6-1.3); GLUCOSE 105 mg/dL (74-106); POTASSIUM - SERUM 3.2 mmol/L (3.5-5.1); SODIUM 138 mmol/L (136-145); UREA NITROGEN 10 mg/dL (7-18); eGFR NON AFRICAN AMERICAN > 90 mL/min (90-120)
[2018-10-03 08:00] VITALS: BP 115/65
--- NOTE | 2018-10-03 08:20 | NUR ---
PT AM MEDS ADMINISTERED. PT ELE LOCKWOOD. JANELL.
--- NOTE | 2018-10-03 10:03 | NUR ---
STARTED LEFT FOREARM 22G X1 ATTEMPT, FLUSHES AND DRAWS WITHOUT DIFFICULTY, TRANSPARENT DRESSING APPLIED AND ANCHORED. PT TOLERATED WELL
[2018-10-03 12:48] VITALS: Ht 188 cm; Wt 83.0 kg
--- NOTE | 2018-10-03 16:06 | NUR ---
PT FIRST UNIT OF PRBC STARTED AT THIS TIME.
--- NOTE | 2018-10-03 16:31 | NUR ---
PT VS REMAIN WNL. PT TOLERATING PRBC WELL AND DENIES NEEDS. WCTM.
--- NOTE | 2018-10-03 17:32 | NUR ---
PT RESTING IN BED EATING DINNER, PRBC INFUSING. PT DENIES NEEDS. WCTM.
[2018-10-03 19:40] VITALS: BP 128/58
--- NOTE | 2018-10-03 19:49 | NUR ---
AWAKE AND ALERT. RESPIRATIONS RIGHT SHOULDER SLING IN PLACE. CONTINUE TO HAVE EDEMA AND WEEPING IN RIGHT ARM. SECOND UNIT OF PRBC IS TRANSFUSING WITH NO SIGNS OF ADVERSE REACTIONS. AFEBRILE. NO ACUTE DISTRESS NOTED. CALL LIGHT IN REACH.
--- NOTE | 2018-10-03 22:14 | NUR ---
PRBC COMPLETE. NO SIGNS OF ADVERSE REACTION. AFEBRILE. RESPIRATIONS UNLABORED. NO DISTRESS NOTED.
--- NOTE | 2018-10-04 05:10 | NUR ---
QUIET HOURS. RESTING IN BED WITH NO DISTRESS NOTED. NO ACUTE CHANGES IN CONDITION THIS SHIFT. CALL LIGHT IN REACH.
--- NOTE | 2018-10-04 06:13 | NUR ---
BLOOD SUGAR WAS 51 FIRST CHECK THIS AM AND JUICE AND SUGAR GIVEN PO. ALERT AND ORIENTED. SKIN WARM AND DRY. NOW BLOOD SUGAR 116. NO DISTRESS NOTED.
[2018-10-04 08:00] VITALS: BP 122/99
--- NOTE | 2018-10-04 08:00 | NUR ---
PATIENT IS ALERT/ORIENT. VOICES NO NEEDS. CALL LIGHT WITHIN REACH. WILL CONTINUE WITH PLAN OF CARE
--- NOTE | 2018-10-04 10:03 | NUR ---
PATIENT IN REHAB ROOM. WORKING WITH OCCUPATIONAL THERAPIST. DENIES ANY PAIN/DISC.
--- NOTE | 2018-10-04 14:34 | NUR ---
I have reviewed this patient and I concur with the Shift Assessment completed by the Licensed Practical Nurse today this shift.
--- NOTE | 2018-10-04 19:46 | NUR ---
GREETED PATIENT AND INTRODUCED MYSELF. PATIENT IS LAYING IN BED IN SUPINE POSITION WITH SLING ON RIGHT ARM. TALKED WITH PATIENT CONCERNING HIS BLOOD SUGAR DROPPING THIS MORNING AND ENCOURAGED PT. THAT HE NEEDED TO HAVE EVENING SNACK AFTER INSULIN ADMINISTRATION. PT. UNDERSTOOD TEACHING. DENIES ANY FURTHER NEEDS AT THIS TIME. CALL LIGHT IN REACH.
[2018-10-04 20:13] VITALS: BP 126/67
--- NOTE | 2018-10-05 02:11 | NUR ---
RECHECKED PATIENTS BLOOD SUGAR AFTER 2100 ADMINISTRATION OF INSULIN AND LANTUS. PT. BLOOD SUGAR WAS 127. OFFERED PATIENT A SNACK OF ONOFRE CRACKERS AND MILK TO KEEP BLOOD SUGAR FROM DROPPING. WCTM.
--- NOTE | 2018-10-05 03:36 | NUR ---
PATIENT RESTING QUIETLY WITH EYES CLOSED. RESPIRATIONS EVEN. NO S/S OF DISTRESS. CALL LIGHT IN REACH.
[2018-10-05 08:00] VITALS: BP 121/63
--- NOTE | 2018-10-05 09:53 | NUR ---
PATIENT ALERT/ORIENT. CALL LIGHT WITHIN REACH. VOICES NO NEEDS AT THIS TIME. WILL CONTINUE WITH PLAN OF CARE
--- NOTE | 2018-10-05 13:56 | NUR ---
PATIENT HELPED WITH SHOWER BY THIS NURSE. DRESSING TO RIGHT SHOULDER CHANGED
--- NOTE | 2018-10-05 19:30 | NUR ---
PT IN BED LOWEST POSITION, AWAKE PLEASANT, PICKED UP FINISHED MENU, NO NEEDS NOTED, FLUIDS AND CALL LIGHT WITHIN REACH
--- NOTE | 2018-10-06 03:22 | NUR ---
PT IN BED LOWEST POSITION, EYES CLOSED, AROUSES EASILY TO VOICE, RESPIRATIONS EVEN AND UNLABORED, NO IMMEDIATE NEEDS NOTED, FLUIDS AND CALL LIGHT WITHIN REACH, WILL CONTINUE TO MONITOR
[2018-10-06 06:31] LABS: BASOPHILS 0.2 % (0-2); EOSINOPHILS 1.1 % (0-7); HEMATOCRIT 30.3 % (42.0-54.0); HEMOGLOBIN 10.2 g/dL (13.5-17.5); IMMATURE GRANULOCYTES 1.8 % (0-5); LYMPHOCYTES 23.7 % (15-50); MCHC 33.7 g/dL (31.0-37.0); MCV 89.1 fL (80.0-100.0); MEAN PLATELET VOLUME 8.7 fL (7.4-10.4); MONOCYTES 8.3 % (2-11); NEUTROPHILS 64.9 % (40-80); PLATELET COUNT 263 10x3/uL (130-400); RDW 16.4 % (11.5-14.5); WBC 9.1 10x3/uL (4.8-10.8)
[2018-10-06 06:40] VITALS: BP 103/60
[2018-10-06 06:46] LABS: CALC OSMOLALITY 275 mosm/kg (275-300); CALCIUM 8.5 mg/dL (8.5-10.1); CARBON DIOXIDE 32.1 mmol/L (21.0-32.0); CHLORIDE - SERUM 101 mmol/L (98-107); CREATININE - SERUM 0.9 mg/dL (0.6-1.3); GLUCOSE 97 mg/dL (74-106); POTASSIUM - SERUM 3.2 mmol/L (3.5-5.1); SODIUM 138 mmol/L (136-145); UREA NITROGEN 13 mg/dL (7-18); eGFR NON AFRICAN AMERICAN 86 mL/min (90-120)
[2018-10-06 08:00] VITALS: BP 110/69
--- NOTE | 2018-10-06 08:36 | NUR ---
PT AM MEDS ADMINISTERED. PT DENIES NEEDS. WCTM.
--- NOTE | 2018-10-06 14:32 | NUR ---
PATIENT ADMITTED TO REHAB FROM ACUTE FLOOR. PATIENT RESIDES AT [facility]. HE IS A CLIENT OF [employer] [facility]. HE HAS APPOINTMENTS WITH DR. MENDOZA 10/30/18 @ 11:20, DR. SHETTY 12/03/18 @ 3:00, DR. TROY 10/13/18 1:00. [facility]. 04/06/18 @ 12:30. DR. KIM 10/16/18 @ 1:45. WILL CONTINUE TO FOLLOW WITH PATIENT.
--- NOTE | 2018-10-06 17:59 | NUR ---
PT EATING DINNER, DENIES NEEDS. WCTM.
[2018-10-06 20:43] VITALS: BP 115/66
--- NOTE | 2018-10-06 23:36 | NUR ---
PT IN BED LOWEST POSITION, EYES CLOSED, AROUSES EASILY TO VOICE, NO NEEDS NOTED, RESPIRATIONS EVEN AND UNLABORED, FLUIDS AND CALL LIGHT WITHIN REACH
--- NOTE | 2018-10-07 03:43 | NUR ---
AT 2100 MED PASS PT BLOOD SUGAR WAS 154 WITH A SLIDING SCALE AND 70 UNITS OF LANTUS, PT SUGAR DROPS EXTREMELY FAST, ALL INSULIN WAS HELD DUE TO THIS FACT, WILL CONTINUE TO MONITOR PT THRU-OUT THIS SHIFT.
[2018-10-07 08:00] VITALS: BP 120/69
--- NOTE | 2018-10-07 10:43 | NUR ---
PT AM MEDS ADMINISTERED. PT DENIES NEEDS. WCTM.
[2018-10-07 19:14] VITALS: BP 110/69
--- NOTE | 2018-10-07 19:14 | NUR ---
GREETED PATIENT AND INTRODUCED MYSELF. PATIENT IS LAYING IN BED IN SUPINE POSITION WITH WARM COMPRESS ON RIGHT SHOULDER. DENIES ANY FURTHER NEEDS AT THIS TIME. CALL LIGHT IN REACH. VITAL SIGNS OBTAINED.
--- NOTE | 2018-10-07 23:43 | NUR ---
RECHECKED PATIENTS BLOOD SUGAR AFTER ADMINISTRATION OF 65 UNITS OF LANTUS AND EVENING SNACK. PTS. BLOOD SUGAR IS 245. PT. WILL BE NPO AFTER MIDNITE FOR EARLY AM PROCEDURE.
--- NOTE | 2018-10-08 01:33 | NUR ---
PT. RESTING QUIETLY WITH EYES CLOSED. RESPIRATIONS EVEN. NO S/S OF DISTRESS. SR UP X 2. BED IN LOWEST POSITION. CALL LIGHT IN REACH.
[2018-10-08 07:20] LABS: BASOPHILS 0.2 % (0-2); HEMATOCRIT 29.6 % (42.0-54.0); HEMOGLOBIN 9.9 g/dL (13.5-17.5); IMMATURE GRANULOCYTES 1.5 % (0-5); LYMPHOCYTES 24.7 % (15-50); MCH 29.9 pg (26.0-34.0); MCHC 33.4 g/dL (31.0-37.0); MCV 89.4 fL (80.0-100.0); MEAN PLATELET VOLUME 8.6 fL (7.4-10.4); MONOCYTES 9.2 % (2-11); NEUTROPHILS 63.4 % (40-80); PLATELET COUNT 283 10x3/uL (130-400); RBC 3.31 10x6/uL (4.20-6.10); RDW 15.7 % (11.5-14.5)
[2018-10-08 07:34] LABS: C-REACTIVE PROTEIN 4.4 mg/dL (0.0-0.9); CALC OSMOLALITY 273 mosm/kg (275-300); CALCIUM 8.7 mg/dL (8.5-10.1); CARBON DIOXIDE 30.1 mmol/L (21.0-32.0); CHLORIDE - SERUM 98 mmol/L (98-107); GLUCOSE 135 mg/dL (74-106); POTASSIUM - SERUM 3.6 mmol/L (3.5-5.1); SODIUM 135 mmol/L (136-145); UREA NITROGEN 18 mg/dL (7-18); eGFR NON AFRICAN AMERICAN 76 mL/min (90-120)
[2018-10-08 08:00] VITALS: BP 118/76
--- NOTE | 2018-10-08 08:00 | NUR ---
PATIENT IS ALERT/ORIENT. CALL LIGHT WITHIN REACH. VOICES NO NEEDS AT THIS TIME. WILL CONTINUE WITH PLAN OF CARE
[2018-10-08 08:47] LABS: ERYTHROCYTE SEDIMENTATION RATE 65 mm/hr (0-20)
--- NOTE | 2018-10-08 09:00 | NUR ---
I have reviewed this patient and I concur with the Shift Assessment completed by the Licensed Practical Nurse today this shift.
--- NOTE | 2018-10-08 09:10 | NUR ---
DR Cody BARRERA INTO SEE PATIENT. NEW ORDERS RECEIVED
--- NOTE | 2018-10-08 13:11 | NUR ---
SURGERY CALLED TO PRE-OP THIS PATIENT FOR DEBRIDMENT OF RIGH SHOULDER. PRE-OP DONE
--- NOTE | 2018-10-08 13:11 | NUR ---
SURGERY CALLED TO PRE-OP PATIENT FOR SURGERY. DONE
--- NOTE | 2018-10-08 13:32 | NUR ---
PATIENT REFUSED THERAPY. STATED HE IS TO NERVES TO GO DOWN TO THE THERAPY ROOM. JUST WANTS TO GET THIS PROCEEDURE OVER WITH
--- NOTE | 2018-10-08 13:47 | NUR ---
SURGERY HERE TO TAKE PATIENT UP FOR PROCEEDURE.
--- NOTE | 2018-10-08 13:50 | NUR ---
Nutrition Follow Up: Chart reviewed. Pt is having an I&D today. Diet: NPO PO Intake: 41% meal avg (on a regular diet prior to NPO) BM: 10/07/18 Meds and labs reviewed Rec resuming regular diet when medically feasible. RD following.
--- NOTE | 2018-10-08 14:42 | NUR ---
CARE TEAM MEETING: PATIENT PROGRESSING IN THERAPY. PATIENT ON HOLD FOR THERAPY DUE TO PENDING SURGERY. WILL CONTINUE TO FOLLOW WITH PATIENT . ESTRELLITAWilbert DISCHARGE DATE IS 10/18/18.
--- NOTE | 2018-10-08 16:38 | NUR ---
PATIENT HAD SURGERY AND NOW IS DISCHARGED FROM REHAB AND ADMITTED TO ACUTE FLOOR
--- NOTE | 2018-10-08 16:54 | NUR ---
DR GONZALEZ CAME DOWN TO UNIT AND JUST TOLD THE PERSONAL INVESTMENT ADVISER THAT IF MR. PLEITEZ COMES BACK DOWN IT IS A MISTAKE. HE NEEDS TO GO TO MED SURG. THIS NURSE CALLED SHAUN RN, INSPECTOR FLOOR AND TALKED TO NURSE FROM SURGERY
--- NOTE | 2018-10-08 17:08 | NUR ---
CALLED TO REHAB TO GIVE REPORT AND WAS INFORMED BY JULIANO BUCKLEY THAT THIS PATIENT IS TO BE ADMITTED TO MED\SURG FLOOR. SPOKE WITH DR. KIM AT THIS TIME AND HE VERIFIED THIS. I THEN SPOKE WITH JULIANO DUNNAIRPORT RAMP ATTENDANT AND INFORMED HER OF THE ABOVE. WAITING FOR AVAILABLE BED ON MED/SURG. WILL CONTINUE TO MONITOR.
[2018-10-10] MEDS ORDERED: BACTRIM DS PO (13:49)
--- NOTE | 2018-10-10 18:27 | NUR ---
PATIENT IS AN UNINTERUPTED ADMITT FORM ACUTE CARE UNIT. PHARMACY NOTIFED. DIAG: RIGHT TOTAL SHOULDER HEMATEMA. HEMOVAC TO RIGHT SHOULDER. PATIENT IS ALERT/ORIENT.
[2018-10-10 21:44] VITALS: BP 114/79
--- NOTE | 2018-10-10 23:38 | NUR ---
THE PATIENT WAS LYING IN BED AND WATCHING TELEVISION WHEN STAFF ENTERED HIS ROOM. BED IS IN THE LOW POSITION WITH SIDERAILS X2 AND CALL LIGHT IS WITHIN REACH. THE PATIENT WAS EDUCATED ON AND DEMONSTRATES APPROPRIATE USE OF A CALL LIGHT. THE PATIENT APPEARS COMFORTABLE WITH NO QUESTIONS OR CONCERNS AT THIS TIME.
--- NOTE | 2018-10-11 07:56 | NUR ---
PT SITTING UP IN BED EATING BREAKFAST, DENIES NEEDS. WCTM.
--- NOTE | 2018-10-11 09:00 | NUR ---
DR CORREIA WAS IN TO SEE PT. NO FORMER DOCUMENTATION ON OUTPUT OF DRAIN. REQUESTS DOCUMENTATION Q8 HOURS. EMPTIED DRAIN AT THIS TIME. 20ML NOTED AND RECORDED.
--- NOTE | 2018-10-11 09:02 | NUR ---
PT AM MEDS ADMINISTERED. PT DENIES NEEDS. WCTM.
--- NOTE | 2018-10-11 17:31 | NUR ---
PT HEMOVAC EMPTIED OF 2ML. WCTM.
[2018-10-11 19:45] VITALS: BP 117/74
--- NOTE | 2018-10-11 20:00 | NUR ---
PT IS RESTING IN BED WITH EYES OPEN. ALERT AND ORIENTED X 3. DENIES ACUTE PAIN OR DISCOMFORT AT THIS TIME. NO ACUTE DISTRESS NOTED. BULKY DRESSING TO RIGHT SHOULDER IS CDI. NO DRAINAGE NOTED. HEMOVAC DRAIN IS INTACT. VSS. PT REQUESTED ASSIST TO THE BATHROOM, STATING HE DIDNT WANT TO USE HIS URINAL AT THIS TIME. PT TO BATHROOM WITH MOD ASSIST FOR TRANSFERS AND LE DRESSING. VOIDED WITHOUT DIFFICULTY. PT ASSISTED TO CHANGE HIS T SHIRT AND BACK INTO BED. SR'S ARE UP X 2 IN BED. CALL LIGHT AND BEDSIDE TABLE ARE WITHIN EASY REACH.
--- NOTE | 2018-10-11 22:15 | NUR ---
PT IS RESTING IN BED WITH EYES OPEN. NO NEEDS VOICED.
--- NOTE | 2018-10-12 00:01 | NUR ---
PT RESTING QUIETLY IN BED WITH EYES CLOSED. RESPS ARE EVEN AND UNLABORED. NO ACUTE DISTRESS NOTED.
--- NOTE | 2018-10-12 03:57 | NUR ---
I have reviewed this patient and I concur with the Shift Assessment completed by the Licensed Practical Nurse today this shift.
--- NOTE | 2018-10-12 06:15 | NUR ---
DR CORREIA HERE TO SEE PT. DRAIN IN RIGHT SHOULDER DC'D WITH LINE INTACT. SITE CLEANSED WITH WOUND WEARING APPAREL ASSEMBLER, AND NEW DRESSING APPLIED.
--- NOTE | 2018-10-12 09:55 | NUR ---
PT AM MEDS ADMINISTERED. PT ELE LOCKWOOD. JANELL.
[2018-10-12 11:55] VITALS: BP 116/62
--- NOTE | 2018-10-12 18:00 | NUR ---
PT EATING DINNER, DENIES NEEDS. WCTM.
--- NOTE | 2018-10-12 19:19 | NUR ---
PT ASSISTED TO THE BATHROOM WITH MOD ASSIST. NO FURTHER NEEDS VOICED.
[2018-10-12 22:53] VITALS: BP 123/79
--- NOTE | 2018-10-12 23:48 | NUR ---
RESTING IN BED WITH EYES CLOSED. ASSISTED TO THE BATHROOM PRN.
--- NOTE | 2018-10-13 00:11 | NUR ---
I have reviewed this patient and I concur with the Shift Assessment completed by the Licensed Practical Nurse today this shift.
--- NOTE | 2018-10-13 04:51 | NUR ---
RESTING IN BED WITH EYES CLOSED.
[2018-10-13 07:10] LABS: ANION GAP 8.3 mmol/L (8-16); CALCIUM 8.5 mg/dL (8.5-10.1); CARBON DIOXIDE 30.3 mmol/L (21.0-32.0); CREATININE - SERUM 1.2 mg/dL (0.6-1.3); POTASSIUM - SERUM 3.6 mmol/L (3.5-5.1)
[2018-10-13 07:18] LABS: BASOPHILS 0.1 % (0-2); EOSINOPHILS 0.7 % (0-7); HEMATOCRIT 29.1 % (42.0-54.0); HEMOGLOBIN 9.5 g/dL (13.5-17.5); IMMATURE GRANULOCYTES 1.4 % (0-5); LYMPHOCYTES 25.7 % (15-50); MCH 29.5 pg (26.0-34.0); MCHC 32.6 g/dL (31.0-37.0); MCV 90.4 fL (80.0-100.0); MEAN PLATELET VOLUME 8.5 fL (7.4-10.4); MONOCYTES 7.4 % (2-11); NEUTROPHILS 64.7 % (40-80); RBC 3.22 10x6/uL (4.20-6.10); RDW 15.4 % (11.5-14.5); WBC 8.1 10x3/uL (4.8-10.8)
[2018-10-13 07:24] LABS: PLATELET COUNT 382 10x3/uL (130-400)
[2018-10-13 08:00] VITALS: BP 115/68
--- NOTE | 2018-10-13 08:50 | NUR ---
PT AM MEDS ADMINISTERD. PT DENIES NEED. WCTM.
--- NOTE | 2018-10-13 14:06 | NUR ---
Nutrition follow-up: Diet: Regular PO intake ~60% average of last 6 meals Labs reviewed' NO BM charted [place] wound noted Will encourage increased po intake and honor food preferences. Will offer nutritional supplements. RDN following.
--- NOTE | 2018-10-13 19:21 | NUR ---
PT IS RESTING IN BED WITH EYES CLOSED. AWOKE EASILY TO VERBAL STIMULI. ALERT AND ORIENTED X3. DENIES ACUTE DISCOMFORT AT THIS TIME. LEFT SHOULDER DRESSING IS CDI. SR'S ARE UP X 2 IN BED. CALL LIGHT AND BEDSIDE TABLE ARE WITHIN EASY REACH.
[2018-10-13 20:05] VITALS: BP 130/75
--- NOTE | 2018-10-14 00:47 | NUR ---
I have reviewed this patient and I concur with the Shift Assessment completed by the Licensed Practical Nurse today this shift.
--- NOTE | 2018-10-14 03:09 | NUR ---
RESTING IN BED WITH EYES CLOSED.
--- NOTE | 2018-10-14 06:18 | NUR ---
PT AWOKE EASILY TO VERBAL STIMULI. TOLERATED AM MEDS WITHOUT DIFFICULTY. NO NEEDS VOICED.
[2018-10-14 08:00] VITALS: BP 119/68
--- NOTE | 2018-10-14 08:15 | NUR ---
PT RESTING IN BED WITH EYES OPEN CALL LIGHT IN REACH NO PROBLEMS WILL MONITER
--- NOTE | 2018-10-14 14:00 | NUR ---
I have reviewed this patient and I concur with the Shift Assessment completed by the Licensed Practical Nurse today this shift.
--- NOTE | 2018-10-14 18:00 | NUR ---
PT RESTING IN BED WITH EYES OPEN CALL LIGHT IN REACH WILL MONITER
--- NOTE | 2018-10-15 02:53 | NUR ---
PT IN BED LOWEST POSITION, EYES CLOSED AROUSES EASILY TO VOICE, RESPIRATIONS EVEN AND UNLABORED, NO NEEDS NOTED AT THIS TIME, FLUIDS AND CALL LIGHT WITHIN REACH.
--- NOTE | 2018-10-15 05:18 | NUR ---
PT FSBS 59 GIVING APPLE JUICE, AND PUDDING, WILL CONTINUE TO MONITOR AND RECHECK FSBS IN 30MIN
--- NOTE | 2018-10-15 05:58 | NUR ---
RECHECK OF FSBS UP FROM 59 AFTER PUDDING AND APPLE JUICE UP TO 132, PT IN BED LOWEST POSITION WATCHING TV
[2018-10-15 07:59] VITALS: BP 115/64
--- NOTE | 2018-10-15 08:00 | NUR ---
PATIENT IS ALERT/ORIENT. CALL LIGHT WITHIN REACH. VOICES NO NEEDS AT THIS TIME. WILL CONTINUE WITH PLAN OF CARE
--- NOTE | 2018-10-15 10:32 | RHP ---
PATIENT: EDGARD PLEITEZ JR MEDICAL RECORD: [id number] ACCOUNT: [id number] LOCATION:[facility]1112 : 36 ADMISSION DATE: 10/02/18 REHABILITATION HISTORY AND PHYSICAL EXAMINATION POST ADMISSION PHYSICIAN EXAMINATION DATE OF ADMISSION: 10/02/2018. ADMITTING DIAGNOSIS: Disuse myopathy. HISTORY OF PRESENT ILLNESS: The patient is an 78-year-old gentleman who is a direct admit from PCP's office on 09/15/2018. He had a right total shoulder on 09/08/2018 was discharged on 09/09/2018, presented back to the ED on 09/10/2018 with complaints of a postop fall. He also had intractable hiccups, was discharged home and presented to his PCP's office on 09/15/2018 with abdominal discomfort, bloating and weakness. The patient does not remember having a bowel movement since 2-3 days after surgery. He was reported that he had urinary frequency, but denied flank pain upon examination. His right arm was edematous and erythematous extended from his surgical incision all the way down to his fingers. He was admitted for further workup and followed by orthopedic and pulmonary during his stay. The patient was found to have a pulmonary embolus, right greater than left on CTA, hxgbycbj-jc-gwmkpy coronary artery disease, possible right ventricular strain and bibasilar atelectasis versus subpleural fibrosis. Dopplers of his lower extremities was extremely positive for chronic thrombus in the left popliteal. Doppler of his right upper extremity involving the right arm showed a thrombophlebitis, but no DVT. He has been quite weak and debilitated since his shoulder, unable to get out of bed secondary to weakness. He is right side dominant. He has had a questionable possible dislocation of his right total shoulder. He has had fluid aspirated during his stay. He has been seen by Dr. Ravi secondary to Dr. Hernandez being on vacation and orthopedics have been around to see him during his stay. The patient had a discussion to proceed with a right total shoulder revision to reverse total shoulder arthroplasty. He had a right total shoulder arthroplasty with escape and complete rotator cuff tear per Dr. Ravi on 09/29/2018. He is yet to be seen by PT throughout his stay. CT of his head has been done, but showed no acute findings. He is currently on Lovenox. He is on electrolyte protocol. He is on acute blood loss anemia. He has been receiving IV iron. He has received packed red blood cells. He has had a proximal muscle weakness, deconditioning, debility, impaired mobility, gait disturbance, high fall risk, and self-care deficits. These are all barriers to his discharge home. He lives at [facility] with his and states he was completely independent with ADLs and mobility prior to this. He is currently set up for max assist with his ADLs, max assist to total assist with mobility. He and his family plan for him to return home at his prior level of functioning or better if possible. 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 PAST MEDICAL HISTORY: Significant for weakness, diabetes, hyperlipidemia, acid reflux, esophageal problems, joint replacement, left knee problems. HISTORY AND PHYSICAL [id number] EDGARD PLEITEZ PAST SURGICAL HISTORY: Includes knee surgery and shoulder surgery. ALLERGIES: ERYTHROMYCIN AND ZOCOR. CURRENT MEDICATIONS: Include Micardis 40 mg daily, Metamucil 1 wafer daily, hydrochlorothiazide 25 mg daily. He is on Zetia 10 mg daily, nystatin 5 cc b.i.d. q.a.c., Protonix 40 mg daily, Lovenox 80 mg subq b.i.d. He is on a low-resistant sliding scale with insulin and Lantus 70 units q.h.s., Mucinex D 1 tab b.i.d. He is on a glucose replacement protocol, MiraLax 17 grams in 8 ounces of water b.i.d. He is on [place] 10/325 one tab q.4 hours p.r.n., Colace 100 mg b.i.d., and Tylenol 500 mg q.6 hours p.r.n. HABITS: No alcohol or tobacco use. FAMILY HISTORY: Noncontributory. SOCIAL HISTORY: The patient hopes to return back home and get back to his prior level of functioning. REVIEW OF SYSTEMS: GENERAL: Does complain of weakness and fatigue. HEENT: Denies cold, cough, or congestion. CARDIOVASCULAR: Denies any chest pain. LUNGS: Does complain of shortness of breath at times. PHYSICAL EXAMINATION: VITAL SIGNS: Stable, afebrile. GENERAL: Well-developed gentleman in no acute distress, alert upon exam. HEENT: Normocephalic and atraumatic. Mucosa moist. NECK: Supple. No lymphadenopathy. LUNGS: Clear in upper thom[place]. HEART: Regular rate and rhythm. No murmurs, rubs or gallops. ABDOMEN: Benign, nontender, nondistended. Positive bowel sounds times 4. EXTREMITIES: Does have dressings in place. His postop area does look a little bit erythematous. NEUROLOGIC: He does have noted weakness. LABORATORY DATA: White count is 8, H&H of 7.8 and 23.2, and platelet count is noted to be 259. Sodium 138, potassium 3.2, BUN and creatinine of 10 and 0.8, and blood sugar is noted to be 105. 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 The patient has potential to make improvement. We instituted the following multidisciplinary therapies including, but not limited to physical, occupational, respiratory, speech, nutritional services, prosthetics and orthotics. Given his complex medical conditions and risk for more complications, rehabilitation services cannot be provided at a low level of care such as skilled nurse facility. PLAN: 1. Admit to [facility] rehab for an inpatient therapy to include the following disciplines: A. Physical therapy to improve gait, all transfer skills and bed mobility to a modified independent level. HISTORY AND PHYSICAL [id number] EDGARD PLEITEZ. Occupational therapy to improve activities of daily living to a modified independent level. C. Case management to assist with discharge planning and placement options. D. Nutrition to assist with nutritional needs. E. Rehabilitation nursing to assist in monitoring the patient's underlying medical conditions and to assist with any type of bowel and bladder management. 2. The patient's current medications and medical care will be continued. 3. The patient will be placed on standard fall precautions. 4. I am going to go ahead and transfuse him a couple units of blood. 5. I will follow up in the a.m. TRANSINT:[id number] Voice Confirmation ID: [id number] DOCUMENT ID: [id number] NICOLAS notes whether there has been none or any medical/functional change since admission: - No change since preadmission screen. NICOLAS attests patient continues to be appropriate for IRF: - Continues to be appropriate. GALI BARRERA MD at 1032 CC: [id number] DICTATION DATE: 10/03/18 0853 CABLE PULLER: 10/03/18 0927 ADM IN [facility] [address] [id number]
--- NOTE | 2018-10-15 10:38 | NUR ---
PATIENT IN REHAB ROOM. WORKING WITH PHYSICAL THERAPY. DENIES ANY PAIN/DISC AT THIS TIME.
--- NOTE | 2018-10-15 13:25 | NUR ---
PATEINT TRANSFERS WITH WHEELED WALKER. STAND BY ASST.
--- NOTE | 2018-10-15 14:00 | NUR ---
I have reviewed this patient and I concur with the Shift Assessment completed by the Licensed Practical Nurse today this shift.
--- NOTE | 2018-10-15 14:53 | NUR ---
CARE TEAM MEETING: PATIENT PROGRESSING IN THERAPY. TENATIVE DISCHARGE DATE IS 10/17/18. PATIENT ATTENDED MEETING AND IS ANTICIPATING DISCHARGE. QUESTIONS AND CONCERNS WERE ADDRESSED. WILL CONTINUE TO FOLLOW WITH PATIENT AND PREPARE FOR DISCHARGE. DARIUS BELLA, CUSTOMER DEVELOPMENT REPRESENTATIVE REHAB PD
--- NOTE | 2018-10-15 19:43 | NUR ---
ASSISTED TO AND FROM BATHROOM. CL IN REACH. BACK IN BED. BED IN LOW SIDE RAILS X2. SLING TO RIGHT ARM. DENIES FURTHER NEEDS. A/O X4. RESP EVEN AND UNLABORED. WILL CONTINUE TO MONITOR.
[2018-10-15 20:00] VITALS: BP 100/59
--- NOTE | 2018-10-16 00:35 | NUR ---
ASSISTED TO AND FROM BATHROOM. BACK IN BED. CL IN REACH. TM
--- NOTE | 2018-10-16 03:39 | NUR ---
I have reviewed this patient and I concur with the Shift Assessment completed by the Licensed Practical Nurse today this shift.
--- NOTE | 2018-10-16 05:10 | NUR ---
ASSISTED TO AND FROM BATHROOM. DENIES FURTHER NEEDS. WCTM. CL IN REACH
[2018-10-16 08:00] VITALS: BP 107/67
--- NOTE | 2018-10-16 11:22 | NUR ---
THE PATIENT WAS LYING IN BED WHEN STAFF ENTERED HIS ROOM. BED IS IN THE LOW POSITION WITH SIDERAILS X2 AND CALL LIGHT WITHIN REACH. THE PATIENT WAS EDUCATED ON THE NEED TO CALL FOR ASSISTANCE WHENEVER HE NEEDS TO GET OUT OF BED. THE PATIENT DEMONSTRATES UNDERSTANDING VIA TEACHBACK METHOD. THE PATIENT APPEARS COMFORTABLE WITH NO QUESTIONS OR COCNERNS AT THIS TIME.
--- NOTE | 2018-10-16 19:30 | NUR ---
ASSISTED TO AND FROM BATHROOM. CL IN REACH. BACK IN BED. BED IN LOW SIDE RAILS X2. RESP EVEN AND UNLABORED. BOWEL ACTIVE X4. PT STATED HE HAD BM YESTERDAY. A/O X4. LUNGS CLEAR. DENIES NEEDS OR PAIN AT THIS TIME. WCTM
[2018-10-16 20:00] VITALS: BP 136/67
--- NOTE | 2018-10-16 22:00 | NUR ---
I have reviewed this patient and I concur with the Shift Assessment completed by the Licensed Practical Nurse today this shift.
--- NOTE | 2018-10-17 02:00 | NUR ---
assisted to and from bathroom. back in bed. cl in reach. denies further needs. wctm
--- NOTE | 2018-10-17 04:44 | NUR ---
ASSISTED TO AND FROM BATHROOM. DENIES FURTHER NEEDS. CL IN REACH. WCTM
[2018-10-17 06:36] LABS: BASOPHILS 0 % (0-2); EOSINOPHILS 0.6 % (0-7); HEMATOCRIT 28.7 % (42.0-54.0); HEMOGLOBIN 9.8 g/dL (13.5-17.5); IMMATURE GRANULOCYTES 1.3 % (0-5); LYMPHOCYTES 26.3 % (15-50); MCH 30.7 pg (26.0-34.0); MCHC 34.1 g/dL (31.0-37.0); MEAN PLATELET VOLUME 8.2 fL (7.4-10.4); MONOCYTES 8.8 % (2-11); PLATELET COUNT 345 10x3/uL (130-400); RBC 3.19 10x6/uL (4.20-6.10); RDW 15.9 % (11.5-14.5); WBC 6.3 10x3/uL (4.8-10.8)
[2018-10-17 06:53] LABS: ANION GAP 10.8 mmol/L (8-16); CALCIUM 8.3 mg/dL (8.5-10.1); CARBON DIOXIDE 26.5 mmol/L (21.0-32.0); CREATININE - SERUM 1.2 mg/dL (0.6-1.3); POTASSIUM - SERUM 4.3 mmol/L (3.5-5.1)
--- NOTE | 2018-10-17 07:30 | NUR ---
A/A/OX4. DENIES ANY PAIN OR DISCOMFORT AT PRESENT TIME AND NO REQUESTS VOICED. DRESSING TO RIGHT SHOULDER C/D/I. ASSESSMENT COMPLETED. BED IN LOW POSITION, CALL LIGHT IN REACH. PT CALLS FOR HELP WHEN NEEDING UP TO BATHROOM. TRANSFERS TO W/C WITH MINIMAL ASSISTANCE. HOPING TO DISCHARGE TODAY AND STATES HE IS READY.
[2018-10-17 08:17] VITALS: BP 114/71
--- NOTE | 2018-10-17 11:55 | NUR ---
Patient is to discharge home today, his will pick him up. A large base quad cane has been ordered from [employer] per patient choice. His will pick it up before she comes to get the patient. Home Health is set up with [facility] for SN, PT and OT. All information was picked up this AM by Lawrence Infante. Follow up appt's are made with Dr Rodríguez for Bj 10/21/18 at 10:[address] Kwame Franco 10/23/18 at 12:15. Cinthya Sandoval RN Clinical Liaison, Rehab
--- NOTE | 2018-10-17 13:53 | NUR ---
DISCHARGE INSTRUCTIONS REVIEWED WITH PT AND HIS AND VERBALIZES UNDERSTANDING WITH NO QUESTIONS. DR. BARRERA CONTACTED ABOUT ANTICOAGULANT AND STATES IT IS NOT NEEDED. PT LEFT FLOOR VIA W/C AND LEFT FACILITY VIA PRIVATE VEHICLE WITH HIS . ALL PERSONAL BELONGINGS WITH PT.
== END 2018-10-17 13:59 | disposition home health service (06) | DRG 91 ==
LOC: D.REHAB 16:22
PROVIDERS: ADMIT Emergency Medicine; ATTEND Emergency Medicine
DX: G72.89 Other specified myopathies (principal); I26.99 Other pulmonary embolism without acute cor pulmonale; D62 Acute posthemorrhagic anemia; J98.11 Atelectasis; I82.532 Chronic embolism and thrombosis of left popliteal vein; Z96.611 Presence of right artificial shoulder joint; D64.9 Anemia, unspecified; E87.8 Other disorders of electrolyte and fluid balance, not elsewhere classified; I25.10 Atherosclerotic heart disease of native coronary artery without angina pectoris; E78.5 Hyperlipidemia, unspecified; R53.81 Other malaise; K59.00 Constipation, unspecified; I80.9 Phlebitis and thrombophlebitis of unspecified site; S40.011A Contusion of right shoulder, initial encounter; E11.65 Type 2 diabetes mellitus with hyperglycemia; E83.42 Hypomagnesemia; I10 Essential (primary) hypertension

== ENCOUNTER 2018-10-08 17:09 | Inpatient (IN) | payer MEDICARE, OTHER ==
[~2018-10-08] VITALS: Ht 188 cm; Wt 83.0 kg
[2018-10-08 17:38] VITALS: BP 150/76
[2018-10-08 18:19] VITALS: BP 137/80; BMI 23.5
[2018-10-08 20:00] VITALS: BP 112/71
--- NOTE | 2018-10-08 20:10 | NUR ---
AROUSES EASILY TO VERBAL STIMULI. NO COMPLIANTS VOICED. RESP EVEN AND UNALBORED. DRESSING INTACT TO RIGHT SHOULDER WITHOUT DRAINAGE NOTED. CL IN REACH
[2018-10-09 04:00] VITALS: BP 123/67
[2018-10-09 05:28] LABS: BASOPHILS 0.2 % (0-2); EOSINOPHILS 0.8 % (0-7); IMMATURE GRANULOCYTES 1.3 % (0-5); MCH 29.9 pg (26.0-34.0); MCHC 33.3 g/dL (31.0-37.0); MCV 89.8 fL (80.0-100.0); MEAN PLATELET VOLUME 8.7 fL (7.4-10.4); MONOCYTES 8.6 % (2-11); NEUTROPHILS 67.1 % (40-80); PLATELET COUNT 284 10x3/uL (130-400); RBC 3.34 10x6/uL (4.20-6.10); RDW 15.6 % (11.5-14.5)
[2018-10-09 05:43] LABS: ANION GAP 8.8 mmol/L (8-16); CALCIUM 8.5 mg/dL (8.5-10.1); CARBON DIOXIDE 30.2 mmol/L (21.0-32.0); CREATININE - SERUM 1.1 mg/dL (0.6-1.3); MAGNESIUM - SERUM 1.7 mg/dL (1.8-2.4); PHOSPHOROUS 3.7 mg/dL (2.5-4.9)
--- NOTE | 2018-10-09 06:23 | NUR ---
I have reviewed this patient and I concur with the Shift Assessment completed by the Licensed Practical Nurse today this shift.
[2018-10-09 07:45] VITALS: BP 126/72
--- NOTE | 2018-10-09 07:45 | NUR ---
PT SITTING UP IN BED. NO ACUTE DISTRESS NOTED. DRESSING TO RIGHT SHOULDER C/D/I WITH HEMOVAC DRAIN IN PLACE. SCANT AMOUNT OF BLOODY DRAINAGE NOTED AT THIS TIME. PT DENIES PAIN AT THIS TIME. DENIES FURTHER NEEDS AT THIS TIME. CL WITHIN REACH. ENCOURAGED TO CALL WITH NEEDS. CONTINUE POC
[2018-10-09 13:43] VITALS: BP 126/67
[2018-10-09 14:44] VITALS: Ht 188 cm; Wt 83.0 kg
[2018-10-09 16:34] LABS: % SATURATION 16 % (15-55); IRON 30 ug/dl (35-150); TOTAL IRON BIND CAPACITY 178 ug/dl (260-445); UNSAT IRON BIND CAPACITY 148 ug/dl (150-375)
[2018-10-09 17:24] VITALS: BP 113/70
--- NOTE | 2018-10-09 19:45 | NUR ---
PT SITTING UP IN BED. CL IN REACH. DENIES NEEDS AT THIS TIME. BED IN LOW SIDE RAILS X2. RESP EVEN AND UNLABORED. WILL CONTINUE TO MONITOR. A/O X4.
[2018-10-09 20:00] VITALS: BP 99/67
--- NOTE | 2018-10-09 21:30 | NUR ---
ASSISTED TO AND FROM BEDSIDE COMODE. DENIES FURTHER NEEDS. WCTM BACK IN BED.
[2018-10-10] VITALS: BP 113/63
--- NOTE | 2018-10-10 01:58 | NUR ---
I have reviewed this patient and I concur with the Shift Assessment completed by the Licensed Practical Nurse today this shift.
[2018-10-10 02:43] LABS: APPEARANCE CLEAR (CLEAR); BILIRUBIN NEGATIVE (NEGATIVE); COLOR YELLOW (YELLOW); GLUCOSE NEGATIVE (NEGATIVE); KETONE NEGATIVE (NEGATIVE); NITRITE NEGATIVE (NEGATIVE); PROTEIN NEGATIVE (NEGATIVE); UROBILINOGEN NORMAL (NORMAL)
--- NOTE | 2018-10-10 03:15 | NUR ---
PT RESTING QUIETLY. CL IN REACH. NO DISTRESS NOTED. WCTM
[2018-10-10 04:00] VITALS: BP 106/62
[2018-10-10 04:56] LABS: BASOPHILS 0.2 % (0-2); EOSINOPHILS 1.3 % (0-7); HEMATOCRIT 29.3 % (42.0-54.0); HEMOGLOBIN 9.7 g/dL (13.5-17.5); IMMATURE GRANULOCYTES 1.3 % (0-5); LYMPHOCYTES 31.8 % (15-50); MCH 29.9 pg (26.0-34.0); MCHC 33.1 g/dL (31.0-37.0); MCV 90.4 fL (80.0-100.0); MEAN PLATELET VOLUME 8.5 fL (7.4-10.4); MONOCYTES 6.8 % (2-11); NEUTROPHILS 58.6 % (40-80); PLATELET COUNT 283 10x3/uL (130-400); RBC 3.24 10x6/uL (4.20-6.10); RDW 15.5 % (11.5-14.5); WBC 8.2 10x3/uL (4.8-10.8)
[2018-10-10 05:10] LABS: CALC OSMOLALITY 280 mosm/kg (275-300); CALCIUM 8.3 mg/dL (8.5-10.1); CARBON DIOXIDE 31.7 mmol/L (21.0-32.0); CHLORIDE - SERUM 99 mmol/L (98-107); MAGNESIUM - SERUM 1.7 mg/dL (1.8-2.4); POTASSIUM - SERUM 3.6 mmol/L (3.5-5.1); SODIUM 136 mmol/L (136-145); UREA NITROGEN 20 mg/dL (7-18); eGFR NON AFRICAN AMERICAN 76 mL/min (90-120)
[2018-10-10 05:11] LABS: GLUCOSE 203 mg/dL (74-106)
--- NOTE | 2018-10-10 09:00 | NUR ---
ALERT AND ORIENTEDX4. DRESSING INTACT TO RT. SHOULDER WITH DR. WATTS HERE. RADIAL PULSES INTACT AND DENIES ANY PAIN OR DISCOMFORT AT THIS TIME WITH LIMITED ROM TO RT. SHOULDER. SCD'S INTACT.
[2018-10-10 09:01] VITALS: BP 112/70
--- NOTE | 2018-10-10 10:31 | NUR ---
Rehab Prescreening Consult recieved and the chart has been reviewed. He will need a PT and an OT eval to determine what his functional needs are as he just discharged from the ARU. Cinthya Sandoval RN Clinical Liaison, Rehab
[2018-10-10 12:50] VITALS: BP 114/70
[2018-10-10] MEDS ORDERED: BACTRIM DS PO (13:49)
--- NOTE | 2018-10-10 14:56 | MORECARE ---
CASE MANAGEMENT DISCHARGE SUMMARY PATIENT: EDGARD PLEITEZ JR UNIT: [id number] ADM DATE: 10/08/18 AGE: 78 : 38 SEX: M ROOM/BED: D.2238 AUTHOR: JANA MURILLO PHYSICIAN: REFERRING PHYSICIAN: JON IVERSON MD DATE OF SERVICE: 10/10/18 Discharge Plan Patient Name: EDGARD PLEITEZ [facility] [facility] 1940 Planned Disposition: Inpatient Rehab Anticipated Discharge Date: 10/10/18 Discharge Date: Expected LOS: 2 Initial Reviewer: [email or web address] Initial Review Date: 10/10/2018 Generated: 10/10/18 3:55 pm Comments DCP- Discharge Planning Updated by [email or web address]: Jackie Hodgson on 10/10/18 1:[address] Patient has been accepted to inpatient rehab per Justine Anguiano. I spoke with the patient, he is in agreement to transfer down to rehab today. He states he has already texted his and notified her. Discharge to inpatient rehab today. I spoke with Ghassan Wylie and he states ok to discharge to inpatient rehab today. Patient Name: EDGARD PLEITEZ Page [phone] at 1456 All edits/amendments must be made on the electronic document DICTATION DATE: 10/10/181454 PUBLIC SAFETY DISPATCHER: MAGUI 10/10/18 1455 RPT#: [id number] DC DATE: STATUS: ADM IN [facility] [address] [place] [address] END OF REPORT
--- NOTE | 2018-10-10 17:40 | NUR ---
REPORT CALLED TO REHAB WITH PATINET UNDERSTANDING DISCHARGE INSTRUCTIONS. TRANSPORTED PT AND INTEMS TO REHAB VIA W/C AND STABLE AT TIME OF DEPARTURE.
[2018-10-10 17:44] VITALS: BP 119/67
--- NOTE | 2018-10-13 11:51 | MORECARE ---
CASE MANAGEMENT DISCHARGE SUMMARY PATIENT: EDGARD PLEITEZ JR UNIT: [id number] ADM DATE: 10/08/18 AGE: 78 : 38 SEX: M ROOM/BED: D.2238 AUTHOR: JANA MURILLO PHYSICIAN: REFERRING PHYSICIAN: JON IVERSON MD DATE OF SERVICE: 10/13/18 Discharge Plan Patient Name: EDGARD PLEITEZ [facility] [facility] 1940 Planned Disposition: Inpatient Rehab Anticipated Discharge Date: 10/10/18 Discharge Date: 10/10/2018 Expected LOS: 2 Initial Reviewer: [email or web address] Initial Review Date: 10/10/2018 Generated: 10/13/18 12:51 pm Comments DCP- Discharge Planning Updated by [id number]: Jackie Hodgson on 10/10/18 1:[address] Patient has been accepted to inpatient rehab per Justine Anguiano. I spoke with the patient, he is in agreement to transfer down to rehab today. He states he has already texted his and notified her. Discharge to inpatient rehab today. I spoke with Ghassan Wylie and he states ok to discharge to inpatient rehab today. Last DP export: 10/10/18 1:56 p Patient Name: EDGARD PLEITEZ Page [phone] at 1151 All edits/amendments must be made on the electronic document DICTATION DATE: 10/13/18 1151 SALES AND MANAGEMENT TRAINEE: MAGUI 10/13/18 1151 RPT#: [id number] DC DATE:10/10/18 STATUS: DIS IN [facility] [address] [place] [address] END OF REPORT
== END 2018-10-10 17:40 | DRG 508 ==
LOC: D.MS 17:09
PROVIDERS: ADMIT Internal Medicine Nephrology; ATTEND Internal Medicine Nephrology
PROC: 0RCK0ZZ Extirpation of Matter from Left Shoulder Joint, Open Approach (ICD-10-PCS; principal; 2018-10-08)
DX: T84.86XA Thrombosis due to internal orthopedic prosthetic devices, implants and grafts, initial encounter (principal); I10 Essential (primary) hypertension; E11.9 Type 2 diabetes mellitus without complications; E78.5 Hyperlipidemia, unspecified; K21.9 Gastro-esophageal reflux disease without esophagitis

== ENCOUNTER 2018-11-10 14:35 | Inpatient (IN) | payer MEDICARE, OTHER ==
[~2018-11-10] VITALS: Ht 188 cm; Wt 72.6 kg
[~2018-11-10 14:35] MED LIST changes: +BACTRIM DS PO
--- NOTE | 2018-11-10 15:00 | NUR ---
RECEIVED PT TO ROOM 1212 VIA WHEELCHAIR, HELPED PT TO BED, STIFFNESS NOTED TO LT LEG. PT A/O X4, RESP EVEN AND NONLABORED ON RA. ORIENTED PT TO ROOM AND CALL LIGHT. WILL ASSESS PT AND START PALN OF CARE.
[2018-11-10 15:41] VITALS: BMI 20.5
[2018-11-10 16:10] LABS: BASOPHILS 0 % (0-2); EOSINOPHILS 0.6 % (0-7); HEMATOCRIT 28.7 % (42.0-54.0); HEMOGLOBIN 9.6 g/dL (13.5-17.5); IMMATURE GRANULOCYTES 0.3 % (0-5); LYMPHOCYTES 25.3 % (15-50); MCH 30.5 pg (26.0-34.0); MCHC 33.4 g/dL (31.0-37.0); MCV 91.1 fL (80.0-100.0); MEAN PLATELET VOLUME 8.7 fL (7.4-10.4); MONOCYTES 9.5 % (2-11); NEUTROPHILS 64.3 % (40-80); RBC 3.15 10x6/uL (4.20-6.10); RDW 15.6 % (11.5-14.5); WBC 6.8 10x3/uL (4.8-10.8)
[2018-11-10 16:17] LABS: PLATELET COUNT 255 10x3/uL (130-400)
[2018-11-10 16:20] VITALS: BP 126/73
[2018-11-10] MEDS ORDERED: BASAGLAR K100 UNIT/1 SC (17:40)
[2018-11-10] MEDS ORDERED: HUMALOG 30100 UNITS/ SC (17:42)
[2018-11-10] MEDS ORDERED: MICARDIS20 MG PO (17:42)
[2018-11-10 17:54] LABS: ANION GAP 9.8 mmol/L (8-16); CALCIUM 8.7 mg/dL (8.5-10.1); CARBON DIOXIDE 30.2 mmol/L (21.0-32.0); CREATININE - SERUM 1.1 mg/dL (0.6-1.3)
[2018-11-10 18:56] LABS: ERYTHROCYTE SEDIMENTATION RATE 28 mm/hr (0-20)
--- NOTE | 2018-11-10 19:30 | NUR ---
RECEIVED REPORT, WILL ASSUME CARE OF PT, DENIES ANY NEEDS AT THIS TIME, BED IS LOW, SRX2, CALL LIGHT IN REACH, WILL CONTINUE PLAN OF CARE
[2018-11-10 20:00] VITALS: BP 131/79
[2018-11-11] VITALS: BP 119/65
--- NOTE | 2018-11-11 03:06 | NUR ---
I have reviewed this patient and I concur with the Shift Assessment completed by the Licensed Practical Nurse today this shift.
[2018-11-11 04:00] VITALS: BP 124/64
--- NOTE | 2018-11-11 07:21 | NUR ---
PT RESTING WITH EYES CLOSED UPON ENTERING, WOKE UP WHILE IN ROOM. EMPTIED PT URINAL PER PT REQUEST. DENIES ANY NEEDS AT THIS TIME. BED IN LOWEST POSITION, BED RAILS X2, CALL LIGHT WITHIN REACH. WILL CTM.
--- NOTE | 2018-11-11 08:15 | NUR ---
CHECKED PT BLOOD SUGAR, RESULT OF 86, HELD MORNING INSULIN DOSE, PROVIDED PT WITH ORANGE JUICE. DENIES ANY NEEDS. WILL CTM.
--- NOTE | 2018-11-11 10:05 | NUR ---
ADMINISTERED MEDICATION AT THIS TIME. NO TROUBLE SWALLOWING. EMPTIED PT URINAL PER REQUEST. ASSESSED VITALS, ALL ARE STABLE. DENIES OTHER NEEDS. WILL CTM.
[2018-11-11 11:24] LABS: BASOPHILS 0.1 % (0-2); EOSINOPHILS 0.3 % (0-7); HEMATOCRIT 31.3 % (42.0-54.0); HEMOGLOBIN 10.3 g/dL (13.5-17.5); IMMATURE GRANULOCYTES 0.3 % (0-5); LYMPHOCYTES 18.2 % (15-50); MCH 30.5 pg (26.0-34.0); MCHC 32.9 g/dL (31.0-37.0); MCV 92.6 fL (80.0-100.0); MEAN PLATELET VOLUME 8.7 fL (7.4-10.4); MONOCYTES 4.5 % (2-11); NEUTROPHILS 76.6 % (40-80); PLATELET COUNT 271 10x3/uL (130-400); RBC 3.38 10x6/uL (4.20-6.10); RDW 15.4 % (11.5-14.5); WBC 6.7 10x3/uL (4.8-10.8)
[2018-11-11 11:33] LABS: ALBUMIN 2.3 g/dL (3.4-5.0); ALKALINE PHOSPHATASE 101 U/L (46-116); ALT (SGPT) 23 U/L (10-68); BILIRUBIN - TOTAL 0.38 mg/dL (0.2-1.3); CALC OSMOLALITY 280 mosm/kg (275-300); CALCIUM 8.8 mg/dL (8.5-10.1); CARBON DIOXIDE 32.2 mmol/L (21.0-32.0); CHLORIDE - SERUM 103 mmol/L (98-107); GLUCOSE 120 mg/dL (74-106); SODIUM 141 mmol/L (136-145); UREA NITROGEN 9 mg/dL (7-18); eGFR NON AFRICAN AMERICAN 76 mL/min (90-120)
--- NOTE | 2018-11-11 11:45 | NUR ---
ADMINISTERED MEDICATION, NO TROUBLE SWALLOWING, ASSESSED BLOOD SUAGR, READING OF 114. DENIES ANY NEEDS AT THIS TIME, AT BEDSIDE. WILL ADMINISTERED INSULIN WHEN LUNCH IS DELIVERED. WILL CTM.
[2018-11-11 13:27] VITALS: Ht 188 cm; Wt 72.6 kg
--- NOTE | 2018-11-11 14:30 | NUR ---
PT SITTING UP RIGHT IN BED, RESTING COMFORTABLY. PUT PT DENTURES IN CUP WITH DENTURE TAB. DENIES ANY NEEDS AT THIS TIME. BED IN LOWEST POSITION, BED RAILS X2, CALL LIGHT WITHIN REACH. WILL CTM.
--- NOTE | 2018-11-11 17:42 | NUR ---
PT RESTING COMFORTABLY UPRIGHT IN BED UPON ENTERING, FINIHSING MEAL. DENIES OTHER NEEDS AT THIS TIME. BED IN LOWEST POSITION, BED RAILS X2, CALL LIGHT WITHIN REACH. WILL CTM.
--- NOTE | 2018-11-11 18:39 | NUR ---
PT RESTING COMFORTABLY IN BED, DENIES ANY NEEDS AT THIS TIME. BED IN LOWEST POSITION, BED RAILS X2, CALL LIGHT WITHIN REACH. WILL CTM.
--- NOTE | 2018-11-11 19:08 | NUR ---
HUNG IV MEDICATION AT THIS TIME, NO COMPLAINT OF IV PAIN. EMPTIED PT URINAL PER PT REQUEST. DENIES ANY NEEDS AT THIS TIME. PASSED REPORT TO CHEESE SUPERVISOR.
--- NOTE | 2018-11-11 19:11 | NUR ---
I have reviewed this patient and I concur with the Shift Assessment completed by the Licensed Practical Nurse today this shift.
--- NOTE | 2018-11-11 19:40 | NUR ---
LYING IN BED. ALERT AND ORIETNED X4. RESP EVEN AND NONLABORED. LLE ELEVATED ON PILLOW WITH DRSG INTACT. BILAT PEDAL PULSES WEAK. DENIES PAIN. BLISTERS NOTED TO LT LOWER LEG. USES URINAL. LR @ 50 ML/HR INFUSING IN RT AC WITHOUT DIFF. VERY TALKATIVE. NO DISTRESS. SR ELEVATED X2. CL IN REACH.
[2018-11-11 20:19] VITALS: BP 121/71
--- NOTE | 2018-11-11 22:00 | NUR ---
IV LEAKING IN RT AC. IV CATH REMOVED. IV RESTARTED IN LT FOREARM WITH 22G AFTER ATTEMPT X3. PT EVERTON WELL.
[2018-11-12 00:10] VITALS: BP 118/68
--- NOTE | 2018-11-12 01:00 | NUR ---
ASSISTED ONTO BEDPAN. STATES HE CANT WALK. LARGE SOFT BM NOTED. PT CALLING IT DIARRHEA.
[2018-11-12 03:46] VITALS: BP 124/63
--- NOTE | 2018-11-12 03:49 | NUR ---
HAS BEEN RESTING WELL. AWAKENED FOR V/S. NO DISTRESS. CL IN REACH.
[2018-11-12 06:03] LABS: BASOPHILS 0 % (0-2); EOSINOPHILS 0.9 % (0-7); HEMOGLOBIN 9.6 g/dL (13.5-17.5); IMMATURE GRANULOCYTES 0.2 % (0-5); LYMPHOCYTES 26.6 % (15-50); MCH 30.3 pg (26.0-34.0); MCHC 33.1 g/dL (31.0-37.0); MCV 91.5 fL (80.0-100.0); MEAN PLATELET VOLUME 8.7 fL (7.4-10.4); MONOCYTES 7.6 % (2-11); NEUTROPHILS 64.7 % (40-80); PLATELET COUNT 252 10x3/uL (130-400); RBC 3.17 10x6/uL (4.20-6.10); RDW 15.6 % (11.5-14.5); WBC 6.6 10x3/uL (4.8-10.8)
[2018-11-12 06:25] LABS: ALBUMIN 2.1 g/dL (3.4-5.0); ALKALINE PHOSPHATASE 85 U/L (46-116); ALT (SGPT) 18 U/L (10-68); C-REACTIVE PROTEIN 1.3 mg/dL (0.0-0.9); CALC OSMOLALITY 283 mosm/kg (275-300); CARBON DIOXIDE 30.5 mmol/L (21.0-32.0); CHLORIDE - SERUM 107 mmol/L (98-107); GLUCOSE 121 mg/dL (74-106); POTASSIUM - SERUM 3.2 mmol/L (3.5-5.1); PROTEIN - SERUM 5.5 g/dL (6.4-8.2); SODIUM 143 mmol/L (136-145); VANCOMYCIN - TROUGH 16.5 ug/mL (10.0-20.0); eGFR NON AFRICAN AMERICAN 76 mL/min (90-120)
[2018-11-12 06:28] LABS: UREA NITROGEN 6 mg/dL (7-18)
--- NOTE | 2018-11-12 09:01 | NUR ---
ADMINISTERED MEDICATION AT THIS TIME, NO TROUBLE SWALLOWING. HUNG IV ANTIBIOTICS, NO COMPLAINT OF IV DISCOMFORT. PT IS ALERT AND ORIENTED X4, IV TO LEFT HAND, SCD'S ON PT, NO OXYGEN. DENIES ANY NEEDS. WILL CTM.
[2018-11-12 10:14] VITALS: BP 125/74
--- NOTE | 2018-11-12 10:20 | NUR ---
EMPTIED PT URINAL PER REQUEST. 200 ML
--- NOTE | 2018-11-12 13:25 | NUR ---
I have reviewed this patient and I concur with the Shift Assessment completed by the Licensed Practical Nurse today this shift.
--- NOTE | 2018-11-12 17:24 | NUR ---
ASSESSED BLOOD SUGAR AT THIS TIME, 163. ADMINISTERED ORDERED 15 UNITS OF INSULIN. DENIES OTHER NEEDS. UP RIGHT IN BED EATING DINNER. ASSESSED VITALS AT THIS TIME, VSS AT THIS TIME. WILL CTM.
--- NOTE | 2018-11-12 18:03 | MORECARE ---
CASE MANAGEMENT DISCHARGE SUMMARY PATIENT: EDGARD PLEITEZ UNIT: [id number] ADM DATE: 11/10/18 AGE: 78 : 38 SEX: M ROOM/BED: D.1212 AUTHOR: LIDIADOC PHYSICIAN: REFERRING PHYSICIAN: PARVIN KIM MD DATE OF SERVICE: 11/12/18 Discharge Plan Patient Name: EDGARD PLEITEZ Facility: [facility]:[place] : 1940 Planned Disposition: Home with Home Health Anticipated Discharge Date: Discharge Date: Expected LOS: Initial Reviewer: [email or web address] Initial Review Date: 11/10/2018 Generated: 11/12/18 7:02 pm Comments DCP- Discharge Planning Updated by [email or web address]: Stephie Bello on 11/12/18 5:[address] Patient Name: EDGARD PLEITEZ Admission Status: Elective Accout number: [id number] Admission Date: 11-10-2018 : 1940 Admission Diagnosis: Attending: PARVIN KIM Current LOS: 2 Anticipated DC Date: Planned Disposition: Home with Home Health Primary Insurance: MEDICARE A & B Discharge Planning Comments: CM met with patient at bedside after explaining CM role and obtaining verbal consent. Patient lives at home with his Leandro where he is independent with his care and plans to return there upon discharge. Patient feels this would be a safe discharge. CM discussed availability / needs of home health and medical equipment. Patient states he has Home Health Services with [facility] and plans to resume care upon discharge. MCKAYLA signed. Patient denies any discharge needs at this time. Patient states he will have his family drive him home upon discharge. CM will continue to follow and assist as needed with discharge planning / needs. Athlete Marketing Agent: Stephie Bello DCPIA - Discharge Planning Initial Assessment Updated by [id number]: Stephie Bello on 11/12/18 5:57 pm * Is the patient Alert and Oriented? Yes * How many steps to enter\exit or inside your home? * PCP CONI * Pharmacy [facility] * Preadmission Environment Home with Family * ADLs Independent * Other Equipment TALL WALKER, WHEELCHAIR, QUAD CANE * List name and contact numbers for known caregivers / representatives who currently or will assist patient after discharge: LEANDRO PLEITEZ - SPOUSE- [phone] * Verbal permission to speak to the caregivers and representatives has been obtained from the patient. Yes * Community resources currently utilized Home Health * Please name any agencies selected above. [facility] * Additional services required to return to the preadmission environment? No * Can the patient safely return to the preadmission environment? Yes * Has this patient been hospitalized within the prior 30 days at any hospital? No Patient Name: EDGARD PLEITEZ Page [id number] at 1803 All edits/amendments must be made on the electronic document DICTATION DATE: 11/12/181801 BIOLOGY INTERNSHIP: MAGUI 11/12/181801 RPT#: [id number] DC DATE: STATUS: ADM IN [facility] [address] [place] [address] END OF REPORT
[2018-11-12 18:12] VITALS: BP 141/73
--- NOTE | 2018-11-12 18:20 | NUR ---
PT RESTING COMFORTABLY IN BED, NO S/S OF DISTRESS NOTED. VITALS SIGNS ASSESSED, VITALS ALL STABLE. DENIES OTHER NEEDS. BED IN LOWEST POSITION, BED RAILS X2, CALL LIGHT WITHIN REACH. WILL CTM.
--- NOTE | 2018-11-12 19:20 | NUR ---
EVENING ROUNDS COMPLETE. PT LAYING IN BED, NO SIGNS OF DISTRESS. VSS, PT DENIES ANY PAIN AT THIS TIME. CL IN REACH, BED IN LOWEST POSITION. CONT WITH POC.
[2018-11-12 20:39] VITALS: BP 117/65
[2018-11-12 23:51] VITALS: BP 122/67
[2018-11-13 04:07] VITALS: BP 122/74
[2018-11-13 07:25] LABS: BASOPHILS 0.1 % (0-2); EOSINOPHILS 1.8 % (0-7); HEMOGLOBIN 9.5 g/dL (13.5-17.5); IMMATURE GRANULOCYTES 0.3 % (0-5); MCH 30.2 pg (26.0-34.0); MCHC 32.8 g/dL (31.0-37.0); MCV 92.1 fL (80.0-100.0); MONOCYTES 7.2 % (2-11); NEUTROPHILS 63.6 % (40-80); PLATELET COUNT 260 10x3/uL (130-400); RBC 3.15 10x6/uL (4.20-6.10); RDW 15.8 % (11.5-14.5); WBC 6.8 10x3/uL (4.8-10.8)
[2018-11-13 07:27] LABS: ALBUMIN 2.1 g/dL (3.4-5.0); ANION GAP 8.4 mmol/L (8-16); BILIRUBIN - TOTAL 0.27 mg/dL (0.2-1.3); C-REACTIVE PROTEIN 0.5 mg/dL (0.0-0.9); CALCIUM 8.8 mg/dL (8.5-10.1); CARBON DIOXIDE 30.4 mmol/L (21.0-32.0); CREATININE - SERUM 1.1 mg/dL (0.6-1.3); POTASSIUM - SERUM 3.8 mmol/L (3.5-5.1); PROTEIN - SERUM 5.6 g/dL (6.4-8.2)
--- NOTE | 2018-11-13 07:56 | NUR ---
ROUNDING DONE WITH PATIENT LAYNG IN THE BED WITH NO NEEDS VOICED AT THIS TIME. DRESSING SEEN OF YOBANI, INTACT TO LEFT FOOT. WILL BREAK THIS DOWN AND CHANGE IT TODAY. LEFT FA PIV SEEN WITH IV FLUIDS INFUSING AT 50 CC/HR. ON ROOM AIR. BILATERAL SCD'S ARE ON AND IN USE. ON EP, K+ IS 3.8. CALL LIGHT IN USE.
[2018-11-13 08:01] VITALS: BP 145/71
--- NOTE | 2018-11-13 10:12 | NUR ---
YOBANI REMOVED FROM LEFT FOOT. ON TOP OF FOOT AT BASE OF TOES IS A HEALING AREA OF PINK SKIN THAT LOOKS LIKE A BLISTER WAS THERE AND THE SKIN WAS REMOVED. THIS AREA IS 4.0 CM X 4.5 CM AND NO DRAINAGE SEEN. COVERED WITH NON ADHERENT PAD AND MEPIPORE TAPE. DATED. THERE IS SEVERAL SMALL FLAT BLISTERS SEEN TO TOP AND OUTER LEFT DONALDSON.
[2018-11-13 11:06] VITALS: BP 119/68
[2018-11-13] MEDS ORDERED: CIPRO500 MG PO (11:08)
[2018-11-13] MEDS ORDERED: AUGMENTIN 875-11 TAB PO (11:08)
--- NOTE | 2018-11-13 13:35 | MORECARE ---
CASE MANAGEMENT DISCHARGE SUMMARY PATIENT: EDGARD PLEITEZ UNIT: [id number] ADM DATE: 11/10/18 AGE: 78 : 38 SEX: M ROOM/BED: D.1212 AUTHOR: JANA MURILLO PHYSICIAN: REFERRING PHYSICIAN: PARVIN KIM MD DATE OF SERVICE: 11/13/18 Discharge Plan Patient Name: EDGARD PLEITEZ Facility: [facility]:[place] : 1940 Planned Disposition: Home with Home Health Anticipated Discharge Date: Discharge Date: Expected LOS: Initial Reviewer: [email or web address] Initial Review Date: 11/10/2018 Generated: 11/13/18 2:35 pm Comments DCP- Discharge Planning Updated by [email or web address]: Macy Rick on 11/13/18 12:[address] DC today to home with resumption of [facility] víctor services. CM met with patient, IMM delivered, explained, signed by the patient, and placed in his chart. Signed form also left with patient. Patient has [facility] services, cm faxed dc order,summary, and dc med list to [facility]. CM called [facility], spoke to Vika to notify of dc today. Macy Rick RN, [facility] DCP- Discharge Planning Updated by [email or web address]: Stephie Bello on 11/12/18 5:[address] Patient Name: EDGARD PLEITEZ Admission Status: Elective Accout number: [id number] Admission Date: 11-10-2018 : 1940 Admission Diagnosis: Attending: PARVIN KIM Current LOS: 2 Anticipated DC Date: Planned Disposition: Home with Home Health Primary Insurance: MEDICARE A & B Discharge Planning Comments: CM met with patient at bedside after explaining CM role and obtaining verbal consent. Patient lives at home with his Leandro where he is independent with his care and plans to return there upon discharge. Patient feels this would be a safe discharge. CM discussed availability / needs of home health and medical equipment. Patient states he has Home Health Services with [facility] and plans to resume care upon discharge. MCKAYLA signed. Patient denies any discharge needs at this time. Patient states he will have his family drive him home upon discharge. CM will continue to follow and assist as needed with discharge planning / needs. Computer Systems Manager: Stephie Bello DCPIA - Discharge Planning Initial Assessment Updated by [email or web address]: Stephie Bello on 11/12/18 5:57 pm * Is the patient Alert and Oriented? Yes * How many steps to enter\exit or inside your home? * PCP CONI * Pharmacy [facility] * Preadmission Environment Home with Family * ADLs Independent * Other Equipment TALL WALKER, WHEELCHAIR, QUAD CANE * List name and contact numbers for known caregivers / representatives who currently or will assist patient after discharge: LEANDRO PLEITEZ - SPOUSE- [phone] * Verbal permission to speak to the caregivers and representatives has been obtained from the patient. Yes * Community resources currently utilized Home Health * Please name any agencies selected above. [facility] * Additional services required to return to the preadmission environment? No * Can the patient safely return to the preadmission environment? Yes * Has this patient been hospitalized within the prior 30 days at any hospital? No External Providers External Provider: [facility] Next Contact Date: Service Request Date: Service Type: Resolution: Reviewer: Comments: Last DP export: 11/12/18 5:03 p Patient Name: EDGARD PLEITEZ Page [phone] at 1335 All edits/amendments must be made on the electronic document DICTATION DATE: 11/13/181334 MARKETING PROJECT COORDINATOR: MAGUI 11/13/18 1335 RPT#: [id number] DC DATE: STATUS: ADM IN [facility] [address] [place] [address] END OF REPORT
--- NOTE | 2018-11-13 14:11 | NUR ---
SALINE LOCK REMOVED WITH TIP INTACT. VERBAL AND WRITTEN DISCHARGE INSTRUCIONS GIVEN TO PATIENT AND . DISCHARGED VIA WHEELCHAIR.
--- NOTE | 2018-11-14 08:22 | MORECARE ---
CASE MANAGEMENT DISCHARGE SUMMARY PATIENT: EDGARD PLEITEZ JR UNIT: [id number] ADM DATE: 11/10/18 AGE: 78 : 36 SEX: M ROOM/BED: D.1212 AUTHOR: JANA MURILLO PHYSICIAN: REFERRING PHYSICIAN: PARVIN KIM MD DATE OF SERVICE: 11/14/18 Discharge Plan Patient Name: EDGARD PLEITEZ Facility: [facility]:[place] : 1940 Planned Disposition: Home with Home Health Anticipated Discharge Date: Discharge Date: 11/13/2018 Expected LOS: Initial Reviewer: [email or web address] Initial Review Date: 11/10/2018 Generated: 11/14/18 9:22 am Comments DCP- Discharge Planning Updated by [email or web address]: Macy Rick on 11/13/18 12:[address] DC today to home with resumption of [facility] services. CM met with patient, IMM delivered, explained, signed by the patient, and placed in his chart. Signed form also left with patient. Patient has [facility] services, cm faxed dc order,summary, and dc med list to [facility]. CM called [facility], spoke to Vika to notify of dc today. Macy Rick RN, [facility] DCP- Discharge Planning Updated by [email or web address]: Stephie Bello on 11/12/18 5:[address] Patient Name: EDGARD PLEITEZ Admission Status: Elective Accout number: [id number] Admission Date: 11-10-2018 : 1940 Admission Diagnosis: Attending: PARVIN KIM Current LOS: 2 Anticipated DC Date: Planned Disposition: Home with Home Health Primary Insurance: MEDICARE A & B Discharge Planning Comments: CM met with patient at bedside after explaining CM role and obtaining verbal consent. Patient lives at home with his Leandro where he is independent with his care and plans to return there upon discharge. Patient feels this would be a safe discharge. CM discussed availability / needs of home health and medical equipment. Patient states he has Home Health Services with [facility] and plans to resume care upon discharge. MCKAYLA signed. Patient denies any discharge needs at this time. Patient states he will have his family drive him home upon discharge. CM will continue to follow and assist as needed with discharge planning / needs. Sebd Teacher: Stephie Bello DCPIA - Discharge Planning Initial Assessment Updated by [email or web address]: Stephie Bello on 11/12/18 5:57 pm * Is the patient Alert and Oriented? Yes * How many steps to enter\exit or inside your home? * PCP [place] * Pharmacy [facility] * Preadmission Environment Home with Family * ADLs Independent * Other Equipment TALL WALKER, WHEELCHAIR, QUAD CANE * List name and contact numbers for known caregivers / representatives who currently or will assist patient after discharge: LEANDRO PLEITEZ - SPOUSE- [phone] * Verbal permission to speak to the caregivers and representatives has been obtained from the patient. Yes * Community resources currently utilized Home Health * Please name any agencies selected above. [facility] * Additional services required to return to the preadmission environment? No * Can the patient safely return to the preadmission environment? Yes * Has this patient been hospitalized within the prior 30 days at any hospital? No Last DP export: 11/13/18 12:35 p Patient Name: EDGARD PLEITEZ Page [id number] at 0822 All edits/amendments must be made on the electronic document DICTATION DATE: 11/14/18821 TRANSCRIPTION COORDINATOR: MAGUI 11/14/18821 RPT#: [id number] DC DATE:11/13/18 STATUS: DIS IN [facility] [address] [place] [address] END OF REPORT
--- NOTE | 2018-11-20 12:53 | NUR ---
Late entry: Nutrition follow-up: Chart reviewed Pt with reported wt of 178# from the doctors office 3 months ago; wt now 160# Pt with reported po intake < 75% of estimated energy needs for > 1 month. 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 11% weight loss in 3 months 2. < 75% intake of estimated energy needs for > 1 month AEB wt loss Pt also with noted fat, muscle loss to all extremeties and temporal wasting. RDN following.
== END 2018-11-13 14:12 | disposition home health service (06) | DRG 637 ==
LOC: D.M3 14:35
PROVIDERS: Family Medicine; ADMIT Orthopaedic Surgery; ATTEND Orthopaedic Surgery
DX: E11.621 Type 2 diabetes mellitus with foot ulcer (principal); E43 Unspecified severe protein-calorie malnutrition; L03.116 Cellulitis of left lower limb; I10 Essential (primary) hypertension; E78.5 Hyperlipidemia, unspecified; I11.0 Hypertensive heart disease with heart failure; I50.9 Heart failure, unspecified; E11.51 Type 2 diabetes mellitus with diabetic peripheral angiopathy without gangrene; L97.529 Non-pressure chronic ulcer of other part of left foot with unspecified severity; K21.9 Gastro-esophageal reflux disease without esophagitis; Z68.20 Body mass index [BMI] 20.0-20.9, adult

== ENCOUNTER 2018-12-16 12:02 | Emergency (ER) | payer MEDICARE, OTHER ==
[~2018-12-16] VITALS: Ht 188 cm; Wt 79.5 kg
[~2018-12-16 12:02] MED LIST changes: +AUGMENTIN 875-11 TAB PO; +BASAGLAR K100 UNIT/1 SC; +CIPRO500 MG PO; +MICARDIS20 MG PO
[2018-12-16 12:11] VITALS: Ht 188 cm; Wt 79.5 kg
[2018-12-16 14:41] VITALS: BP 96/56
== END 2018-12-16 14:43 | disposition home or self-care (01) ==
LOC: D.ER 12:02
DX: M79.601 Pain in right arm (principal); W19.XXXA Unspecified fall, initial encounter; E11.9 Type 2 diabetes mellitus without complications; I10 Essential (primary) hypertension; K21.9 Gastro-esophageal reflux disease without esophagitis